=== PATIENT | female | born 1985 | race Caucasian/White ===

== ENCOUNTER 2020-07-01 14:53 | Inpatient (IN) ==
[2020-07-01] MEDS ORDERED: 0.9 % SODIUM CHLORIDE 1,000 ML IV ONE ×3 (15:44→19:09)
[2020-07-01] MEDS ORDERED: IPRATROPIUM/ALBUTEROL 3 ML AMPUL.NEB NEB ONE (15:45)
--- NOTE | 2020-07-01 15:56 | XRay Report ---
INDICATION: Cough. Paraplegia and history of aspiration pneumonia TECHNIQUE: AP portable upright chest x-ray COMPARISON: None FINDINGS: Lungs:Left basilar pulmonary parenchymal density. Pneumonia including covid pneumonia are possible. No parenchymal consolidation. Right lung is negative Heart, vascular:No significant cardiomegaly. Pulmonary vascularity is normal. No pulmonary edema or pulmonary congestion Mediastinum, calin:No mediastinal widening. No hilar mass Pleura:No pleural fluid. No pleural-based mass or calcification Skeletal:Negative. IMPRESSION: 1. Mild left basilar infiltrate. 2. Findings are consistent with pneumonia and covid pneumonia is possible Interpreted and Authenticated by: Caden Ingram 07/01/20
--- NOTE | 2020-07-01 15:59 | Emergency Department Note ---
HPI <Anna Diggs, STUDENT - Last Filed: 07/01/20 19:46> General Chief complaint: Cold/Flu Symptoms Stated complaint: congetion and cough Time Seen by Provider: 07/01/20 15:01 Source: patient Mode of arrival: wheelchair Limitations: no limitations and physical limitation (History of paraplegia, wheelchair dependent. ) History of Present Illness HPI Narrative: Narrative: 35-year-old female presents with shortness of breath, fever, chills, nausea, headache x 3 days and right ear pain x 1 day. She has been taking oxycodone for her headache and fever with some relief. She states the headache is the worst in between doses of Oxycodone. Describes it as a vice on her whole head. Denies vomiting, diarrhea, abdominal pain, sore throat, and sinus pain. Related Data Home Medications Medication Instructions Recorded Confirmed baclofen 20 mg PO QID 03/15/19 07/01/20 gabapentin 200 mg PO TID 03/15/19 07/01/20 levalbuterol HCl 0.63 mg IH QDAY 03/15/19 07/01/20 methocarbamol 750 mg PO Q6H 03/15/19 07/01/20 montelukast 10 mg PO DAILY 03/15/19 07/01/20 oxycodone 1 tab PO Q4HP PRN 03/15/19 07/01/20 venlafaxine 225 mg PO DAILY 03/15/19 07/01/20 fluticasone propion-salmeterol 1 inh INHALATION BID 07/01/20 07/01/20 [Wixela Inhub] Allergies Allergy/AdvReac Type Severity Reaction Status Date / Time No Known Drug Allergies Allergy Unverified 03/15/19 22:33 Review of Systems <Anna Diggs, STUDENT - Last Filed: 07/01/20 19:46> ROS ROS Narrative: Narrative: All systems ED: reviewed and negative except as stated. PFSH <Anna Diggs, STUDENT - Last Filed: 07/01/20 19:46> Narrative Patient History Narrative: Narrative: Reports PCP is concerned that the left side of her diaphragm is not working correctly, feels she has decreased chest rise on left. Medical/Surgical/Family History All Active Problems (Updated 07/01/20 @ 17:14 by KHAI Mir Pneumonia (Acute) Acute otitis media, right (Acute) Shortness of breath (Acute) Hangover with complication (Acute) Dehydration (Acute) Social History Smoking Status: Never smoker Exam <Anna Diggs, STUDENT - Last Filed: 07/01/20 19:46> Narrative Narrative: Narrative: General Limitations: no limitations and physical limitation (History of paraplegia, wheelchair dependent. ) General appearance: Present alert and anxious Head Head: Present atraumatic and normocephalic Eye Eye: Present PERRL (7-4 mm) ENT ENT: Present mucous membranes dry; Absent TM's normal bilaterally and nasal congestion Expanded ENT TM/Canal exam: erythema: Right TM, bulging: Right TM, effusion: Right TM and canal tenderness: Right TM Neck Neck: Present normal inspection and trachea midline; Absent tenderness and lymphadenopathy Chest Chest: Present symmetric chest wall rise Respiratory Respiratory: Present respiratory distress, rales/crackles, wheezes, accessory muscle use and other (speaks in short sentences due to respiraory distress. ) Cardiovascular Cardiovascular: Present regular rate and normal rhythm Adbominal Abdominal: Present soft and normal bowel sounds; Absent distention, tenderness and guarding Rectal Rectal: Present deferred Extremities Extremities: Present full ROM and other (able to move legs, keeps them bent up towards chest, states it hurts to lay them flat. 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 She has sensation to her right leg more than left. ) Psychiatric Psychiatric: Present anxious and poor eye contact Skin Skin: Present dry and pallor Course <Anna Diggs, STUDENT - Last Filed: 07/01/20 19:46> Vital Signs Vital signs: Vital Signs Temperature 97.6 F 07/01/20 14:54 Pulse Rate 79 07/01/20 14:54 Respiratory Rate 16 07/01/20 14:54 Blood Pressure 135/102 07/01/20 14:54 Pulse Oximetry (%) 96 07/01/20 14:54 Temperature 100.7 F H 07/01/20 20:00 Pulse Rate 139 H 07/01/20 20:00 Respiratory Rate 22 07/01/20 20:00 Blood Pressure 123/86 07/01/20 20:00 Pulse Oximetry (%) 99 07/01/20 20:00 <Joaquín JOSE EDUARDO Trujillo - Last Filed: 07/01/20 21:58> Vital Signs Vital signs: Vital Signs Temperature 97.6 F 07/01/20 14:54 Pulse Rate 79 07/01/20 14:54 Respiratory Rate 16 07/01/20 14:54 Blood Pressure 135/102 07/01/20 14:54 Pulse Oximetry (%) 96 07/01/20 14:54 Temperature 100.7 F H 07/01/20 20:00 Pulse Rate 139 H 07/01/20 20:00 Respiratory Rate 22 07/01/20 20:00 Blood Pressure 123/86 07/01/20 20:00 Pulse Oximetry (%) 99 07/01/20 20:00 MDM <Anna Dontae, YARI - Last Filed: 07/01/20 19:46> MDM Narrative Medical decision making narrative: Narrative: In moderate respiratory distress speaking in short sentences due to shortness of breath, RR 28-32, using accessory muscles. WBC elevated at 17K. Currently afebrile 97.6. CXR findings include Left basilar pulmonary parenchymal density. Pneumonia including covid pneumonia are possible. No parenchymal consolidation. Right lung is negative. Rapid influenza & Tabitha rapid COVID negative. Airborne/droplet isolation maintained due to multiple symptoms consistent with COVID. ALT 194, AST 65, Alk. phos 262. Note mild elevation 03/15/19 of AST and AL 70. Abdomen is non tender, likely related to viral infection. Lactate 1.3. Right otitis media with erythema and effusion on R TM. Repeat vital signs HR 130, Temp 100.9, BP 129/79, RR 18, SaO2 98%. Patient meets admission criteria. Dr. Nunez, hospitalist contacted. He has accepted the patient for admission. He requests Cephied COVID test, Decadron 6 mg IV, Blood cultures x 2, Zosyn 3.375 IV, Remdesivir 200 mg IV, he later canceled remdesivir. The patient continues to be tachycardic and tachypnic with frequent coughing. ABG's PH 7.56, PCO2 22, PO2 61, HcO3 19.7, O2 2L/NC ordered. Temp up to 102.2 treated with Tylenol. HR continues to be 130's. Lab Data Result diagrams: 07/01/20 15:18 07/01/20 15:18 Labs: Lab Results 07/01/20 07/01/20 07/01/20 Range/Units 15:18 15:18 15:18 WBC 17.0 H (4.5-11.0) K/mcL RBC 4.25 (4.00-5.20) M/mcL Hgb 13.2 (12.0-15.0) g/dL Hct 39.1 (36.0-48.0) % MCV 92.0 (80.0-100.0) fL MCH 31.1 (26.0-34.0) pg MCHC 33.8 (31.0-36.0) g/dL RDW 14.2 (11.5-14.5) % Plt Count 384 (140-440) K/mcL MPV 9.7 (7.4-10.4) fL Neut % (Auto) 82.6 H (38.0-78.0) % Lymph % (Auto) 9.6 L (15.0-49.0) % Upson % (Auto) 7.3 (1.0-12.0) % Eos % (Auto) 0.1 (0.0-7.0) % Baso % (Auto) 0.4 (0.0-2.0) % Lymph # (Auto) 1.63 (1.50-4.80) K/mcL Upson # (Auto) 1.23 H (0.10-0.90) K/mcL Eos # (Auto) 0.01 (0.00-0.70) K/mcL Baso # (Auto) 0.06 (0.00-0.20) K/mcL Absolute Neutrophils 14.03 H (1.80-8.00) K/mcL VBG Lactic Acid 1.3 (0.5-2.0) mmol/L Sodium 133 (133-145) mmol/L Potassium 4.1 (3.3-5.1) mmol/L Chloride 97 (96-108) mmol/L Carbon Dioxide 21 L (22-30) mmol/L Anion Gap 15.0 (8.0-16.0) BUN 7 (6-20) mg/dL Creatinine 0.8 (0.6-1.1) mg/dL GFR Calculation 97 Glucose 98 (70-105) mg/dL Calcium 9.5 (8.6-10.4) mg/dL Total Bilirubin 0.5 (0.1-1.0) mg/dL AST 65 H (<32) U/L ALT 194 H (<40) U/L Alkaline Phosphatase 262 H (39-117) U/L Total Protein 8.0 (5.9-8.4) gm/dL Albumin 4.5 (3.2-5.2) gm/dL Globulin 3.5 (2.2-3.7) gm/dL Albumin/Globulin Ratio 1.3 (1.0-2.3) <JOSE EDUARDO Mir - Last Filed: 07/01/20 21:58> MDM Narrative Medical decision making narrative: This patient was seen by myself, and also with the nurse practitioner student today. Patient hospitalized for pneumonia. Agree with the nurse practitioner student documentation. See my note for additional detail and assessment. Lab Data Labs: Lab Results 07/01/20 07/01/20 07/01/20 Range/Units 15:18 15:18 15:18 WBC 17.0 H (4.5-11.0) K/mcL RBC 4.25 (4.00-5.20) M/mcL Hgb 13.2 (12.0-15.0) g/dL Hct 39.1 (36.0-48.0) % MCV 92.0 (80.0-100.0) fL MCH 31.1 (26.0-34.0) pg MCHC 33.8 (31.0-36.0) g/dL RDW 14.2 (11.5-14.5) % Plt Count 384 (140-440) K/mcL MPV 9.7 (7.4-10.4) fL Neut % (Auto) 82.6 H (38.0-78.0) % Lymph % (Auto) 9.6 L (15.0-49.0) % Upson % (Auto) 7.3 (1.0-12.0) % Eos % (Auto) 0.1 (0.0-7.0) % Baso % (Auto) 0.4 (0.0-2.0) % Lymph # (Auto) 1.63 (1.50-4.80) K/mcL Upson # (Auto) 1.23 H (0.10-0.90) K/mcL Eos # (Auto) 0.01 (0.00-0.70) K/mcL Baso # (Auto) 0.06 (0.00-0.20) K/mcL Absolute Neutrophils 14.03 H (1.80-8.00) K/mcL VBG Lactic Acid 1.3 (0.5-2.0) mmol/L Sodium 133 (133-145) mmol/L Potassium 4.1 (3.3-5.1) mmol/L Chloride 97 (96-108) mmol/L Carbon Dioxide 21 L (22-30) mmol/L Anion Gap 15.0 (8.0-16.0) BUN 7 (6-20) mg/dL Creatinine 0.8 (0.6-1.1) mg/dL GFR Calculation 97 Glucose 98 (70-105) mg/dL Calcium 9.5 (8.6-10.4) mg/dL Total Bilirubin 0.5 (0.1-1.0) mg/dL AST 65 H (<32) U/L ALT 194 H (<40) U/L Alkaline Phosphatase 262 H (39-117) U/L Total Protein 8.0 (5.9-8.4) gm/dL Albumin 4.5 (3.2-5.2) gm/dL Globulin 3.5 (2.2-3.7) gm/dL Albumin/Globulin Ratio 1.3 (1.0-2.3) Discharge Plan Patient/Caregiver Discharge Instructions Pt seen by SWATCH CUTTER/PA only: No Clinical Impression: Acute otitis media, right Pneumonia Qualifiers: Pneumonia type: due to unspecified organism Laterality: left Lung location: lower lobe of lung Qualified Code(s): J18.9 - Pneumonia, unspecified organism Patient Disposition: Xfer As Inpt ([facility]) Condition: Fair Discharge Date/Time: 07/01/20 19:58
[2020-07-01] MEDS ORDERED: cefTRIAXone 1 GM VIAL IV ONE (16:03)
[2020-07-01 16:10] LABS: ALT/SGPT 194 U/L (<40); AST/SGOT 65 U/L (<32); Albumin 4.5 gm/dL (3.2-5.2); Albumin/Globulin Ratio 1.3 (1.0-2.3); Alkaline Phosphatase 262 U/L (39-117); Bilirubin,Total 0.5 mg/dL (0.1-1.0); Blood Urea Nitrogen 7 mg/dL (6-20); Calcium 9.5 mg/dL (8.6-10.4); Carbon Dioxide 21 mmol/L (22-30); Chloride 97 mmol/L (96-108); Globulin 3.5 gm/dL (2.2-3.7); Glomerular Filtration Rate 97; Glucose 98 mg/dL (70-105)
[2020-07-01 16:15] LABS: Basophils # (Auto) 0.06 K/mcL (0.00-0.20); Basophils % (Auto) 0.4 % (0.0-2.0); Eosinophils # (Auto) 0.01 K/mcL (0.00-0.70); Eosinophils % (Auto) 0.1 % (0.0-7.0); Hematocrit 39.1 % (36.0-48.0); Hemoglobin 13.2 g/dL (12.0-15.0); Lymphocytes # (Auto) 1.63 K/mcL (1.50-4.80); Lymphocytes % (Auto) 9.6 % (15.0-49.0); Mean Corpuscular HGB Conc 33.8 g/dL (31.0-36.0); Mean Platelet Volume 9.7 fL (7.4-10.4); Monocytes # (Auto) 1.23 K/mcL (0.10-0.90); Monocytes % (Auto) 7.3 % (1.0-12.0); Neutrophils % (Auto) 82.6 % (38.0-78.0); Platelet Count 384 K/mcL (140-440); RBC 4.25 M/mcL (4.00-5.20); Red Cell Distribution Width 14.2 % (11.5-14.5)
--- NOTE | 2020-07-01 16:58 | Emergency Department Note ---
HPI General Chief complaint: Cold/Flu Symptoms Stated complaint: congetion and cough Time Seen by Provider: 07/01/20 15:01 Source: patient Mode of arrival: wheelchair Limitations: physical limitation (Paraplegia and wheelchair dependent) History of Present Illness HPI Narrative: Narrative: Patient is a 35-year-old female that comes into the emergency department today with complaint of shortness of breath, fever, chills, nausea, and headache that started 3 days ago. Patient reports that she developed right ear pain 1 day ago. She has not had any ear drainage or changes with her hearing. Patient reports that her cough started about a week and a half ago after she had visited her [id number]. Patient denies any direct exposure to the novel coronavirus. Patient reports she was taking her temperature at home over the last few days and has had temperatures around 103. She does take scheduled pain medication, and she reports that the acetaminophen and the pain medication was keeping her temperature at normal level, but when she would check her temperature before her next dose of pain medication her temperature would rise up to around 103 degrees. Patient denies any nausea, vomiting, abdominal pains, sore throat, sinus congestion, or weakness. Patient does have a history of paraplegia. Related Data Home Medications Medication Instructions Recorded Confirmed baclofen 20 mg PO QID 03/15/19 07/01/20 gabapentin 200 mg PO TID 03/15/19 07/01/20 levalbuterol HCl 0.63 mg IH QDAY 03/15/19 07/01/20 methocarbamol 750 mg PO Q6H 03/15/19 07/01/20 montelukast 10 mg PO DAILY 03/15/19 07/01/20 oxycodone 1 tab PO Q4HP PRN 03/15/19 07/01/20 venlafaxine 225 mg PO DAILY 03/15/19 07/01/20 fluticasone propion-salmeterol 1 inh INHALATION BID 07/01/20 07/01/20 [Carolina Mendozaub] Allergies Allergy/AdvReac Type Severity Reaction Status Date / Time No Known Drug Allergies Allergy Unverified 03/15/19 22:33 Review of Systems ROS ROS Narrative: Narrative: All systems ED: reviewed and negative except as stated. PFSH Narrative Patient History Narrative: Narrative: Medical/Surgical/Family History All Active Problems (Updated 07/01/20 @ 17:14 by JOSE EDUARDO Mir) Pneumonia (Acute) Acute otitis media, right (Acute) Shortness of breath (Acute) Hangover with complication (Acute) Dehydration (Acute) Social History Smoking Status: Never smoker Exam Narrative Narrative: Narrative: General Limitations: physical limitation (Paraplegia and wheelchair dependent) General appearance: Present alert and in no apparent distress Head Head: Present atraumatic, normocephalic and normal inspection Eye Eye: Present normal appearance and PERRL; Absent scleral icterus and conjunc tival injection ENT ENT: Present normal exam, normal oropharynx, mucous membranes moist and other (Left ear canal clear and tympanic membrane opaque and all landmarks identified. The right tympanic membrane is erythematous with moderate bulging.); Absent nasal congestion Neck Neck: Present normal inspection, full ROM and trachea midline; Absent tenderness, lymphadenopathy and thyromegaly Chest Chest: Present symmetric chest wall rise Respiratory Respiratory: Present other (Tachypnea, crackles in all lobes.); Absent wheezes, stridor, accessory muscle use and prolonged expiratory phase Cardiovascular Cardiovascular: Present regular rate and normal rhythm; Absent systolic murmur and diastolic murmur Adbominal Abdominal: Present soft; Absent distention and tenderness Extremities Extremities: Present normal inspection and normal capillary refill; Absent pedal edema and pretibial edema Back Back: Present normal inspection; Absent CVA tenderness (R) and CVA tenderness (L) Neurological Neurological: Present alert and oriented X3 Psychiatric Psychiatric: Present normal affect and normal mood Skin Skin: Present warm (WNL), dry, intact and normal color Course Vital Signs Vital signs: Vital Signs Temperature 97.6 F 07/01/20 14:54 Pulse Rate 79 07/01/20 14:54 Respiratory Rate 16 07/01/20 14:54 Blood Pressure 135/102 07/01/20 14:54 Pulse Oximetry (%) 96 07/01/20 14:54 Temperature 100.9 F H 07/01/20 16:49 Pulse Rate 130 H 07/01/20 16:49 Respiratory Rate 18 07/01/20 16:49 Blood Pressure 129/79 07/01/20 16:49 Pulse Oximetry (%) 98 07/01/20 16:49 MDM MDM Narrative Medical decision making narrative: Narrative: Patient has elevated white count today at 17. Patient's blood pressure 129/79, pulse 130, respirations 18, temperature 100.9, oxygen saturation 98% on room air. Patient was given 1 g of Rocephin in the department, 1 L normal saline, and was awaiting labs to return. Ordered acetaminophen to be given. Chest x- ray shows left lower lobe pneumonia with concern of possible Covid pneumonia. Her rapid Covid testing today is negative. Hospitalist, Dr. Ramesh was consulted this evening. Report was given to Dr. Ramesh by nurse practitioner student, Anna Diggs. Dr. Ramesh agreed to accept the patient for hospital admission. Dr. Ramesh recommended patient to have the Cephid COVID testing done as well as remdesivir, Zosyn, 6 mg of Decadron, blood cultures drawn x2. These medications and labs were ordered in the emergency department to be done. Dr. Ramesh had called back to the emergency department, and did not want the remdesivir given due to the elevated ALT level. The remdesivir was not given today in the emergency department. Lab Data Lab results reviewed: Yes I reviewed the patient's lab results. Result diagrams: 07/01/20 15:18 07/01/20 15:18 Labs: Lab Results 07/01/20 07/01/20 07/01/20 Range/Units 15:18 15:18 15:18 WBC 17.0 H (4.5-11.0) K/mcL RBC 4.25 (4.00-5.20) M/mcL Hgb 13.2 (12.0-15.0) g/dL Hct 39.1 (36.0-48.0) % MCV 92.0 (80.0-100.0) fL MCH 31.1 (26.0-34.0) pg MCHC 33.8 (31.0-36.0) g/dL RDW 14.2 (11.5-14.5) % Plt Count 384 (140-440) K/mcL MPV 9.7 (7.4-10.4) fL Neut % (Auto) 82.6 H (38.0-78.0) % Lymph % (Auto) 9.6 L (15.0-49.0) % Warrick % (Auto) 7.3 (1.0-12.0) % Eos % (Auto) 0.1 (0.0-7.0) % Baso % (Auto) 0.4 (0.0-2.0) % Lymph # (Auto) 1.63 (1.50-4.80) K/mcL [place]rick # (Auto) 1.23 H (0.10-0.90) K/mcL Eos # (Auto) 0.01 (0.00-0.70) K/mcL Baso # (Auto) 0.06 (0.00-0.20) K/mcL Absolute Neutrophils 14.03 H (1.80-8.00) K/mcL VBG Lactic Acid 1.3 (0.5-2.0) mmol/L Sodium 133 (133-145) mmol/L Potassium 4.1 (3.3-5.1) mmol/L Chloride 97 (96-108) mmol/L Carbon Dioxide 21 L (22-30) mmol/L Anion Gap 15.0 (8.0-16.0) BUN 7 (6-20) mg/dL Creatinine 0.8 (0.6-1.1) mg/dL GFR Calculation 97 Glucose 98 (70-105) mg/dL Calcium 9.5 (8.6-10.4) mg/dL Total Bilirubin 0.5 (0.1-1.0) mg/dL AST 65 H (<32) U/L ALT 194 H (<40) U/L Alkaline Phosphatase 262 H (39-117) U/L Total Protein 8.0 (5.9-8.4) gm/dL Albumin 4.5 (3.2-5.2) gm/dL Globulin 3.5 (2.2-3.7) gm/dL Albumin/Globulin Ratio 1.3 (1.0-2.3) Discharge Plan Patient/Caregiver Discharge Instructions Pt seen by CIVIL ENGINEERING PROJECT DESIGNER/PA only: No Clinical Impression: Acute otitis media, right Pneumonia Qualifiers: Pneumonia type: due to unspecified organism Laterality: left Lung location: lower lobe of lung Qualified Code(s): J18.9 - Pneumonia, unspecified organism Patient Disposition: Xfer As Inpt ([facility]) Condition: Fair
[2020-07-01] MEDS ORDERED: REMDESIVIR 200 MG in 0.9 % SODIUM CHLORIDE 250 ML IV ONE (17:06)
[2020-07-01] MEDS ORDERED: PIPERACILLIN SODIUM/TAZOBACTAM 3.375 GM in DEXTROSE 5% IN WATER 50 ML IV ONE (17:06)
[2020-07-01] MEDS ORDERED: DEXAMETHASONE 10 MG/ML VIAL IV ONE (17:06)
[2020-07-01] MEDS ORDERED: ONDANSETRON 4 MG/2 ML VIAL IV PRN ×2 (17:14→19:09)
[2020-07-01] MEDS ORDERED: 0.9 % SODIUM CHLORIDE 1,000 ML IV SCH ×2 (17:15→19:09)
[2020-07-01] MEDS ORDERED: ACETAMINOPHEN 325 MG TABLET PO ONE ×2 (17:23→19:09)
--- NOTE | 2020-07-01 18:43 | Internal Med History&Physical ---
HPI History of Present Illness Patient information: Note initiated : 07/01/20 at 6:40 pm Service Date, if different from initiated Date: [] Patient: iKya Smith a 35 y/o F admitted on for congetion and cough. Chief Complaint: [] History of present illness: Ms. Smith is a 35 year old F With a history of prior sinus surgery/paraplegia and wheelchair dependent who presents to the ER with 3 days onset of worsening weakness/myalgias/cough/fever headache and loss of appetite. Symptoms are progressed with increasing shortness of breath along with right ear pain. She is endorses to sick contact with URI symptoms. With progressive symptoms she presents to the ER with initial work-up was consistent with bilateral pneumonia suspicious for Covid. White count 70,000. Patient was started on antibiotic coverage/bronchodilators and breathing treatments. Elevated ALT precludes use of remdesivir. Hospital service was consulted. At the time of evaluation patient is very anxious/frequent spells of coughing. She endorses history as above. Denies diarrhea, dysuria, abdominal pain. Her symptoms has been relieved with Tylenol. She has known paraplegia and is wheelchair dependent and has been taking baclofen/oxycodone without help Review of systems 10 point review system was performed and is negative except for ones discussed above PFSH PFSH All Active Problems (Updated 07/01/20 @ 17:14 by JOSE EDUARDO Mir) Pneumonia (Acute) Acute otitis media, right (Acute) Shortness of breath (Acute) Hangover with complication (Acute) Dehydration (Acute) Social History smoking status: Never smoker MEDS/ALLERGIES Home Medications and Allergies Home Medications Medication Instructions Recorded Confirmed Type baclofen 20 mg PO QID 03/15/19 07/01/20 History gabapentin 200 mg PO TID 03/15/19 07/01/20 History levalbuterol HCl 0.63 mg IH QDAY 03/15/19 07/01/20 History methocarbamol 750 mg PO Q6H 03/15/19 07/01/20 History montelukast 10 mg PO DAILY 03/15/19 07/01/20 History oxycodone 1 tab PO Q4HP PRN 03/15/19 07/01/20 History venlafaxine 225 mg PO DAILY 03/15/19 07/01/20 History fluticasone propion-salmeterol 1 inh INHALATION BID 07/01/20 07/01/20 History [Wixela Inhub] Allergies Allergy/AdvReac Type Severity Reaction Status Date / Time No Known Drug Allergies Allergy Unverified 03/15/19 22:33 EXAM Constitutional Vitals: Temp Pulse Resp BP Pulse Ox 100.9 F H 130 H 18 129/79 98 07/01/20 16:49 07/01/20 16:49 07/01/20 16:49 07/01/20 16:49 07/01/20 16:49 Anxious and distressed Head normocephalic Oral cavity moist No ear nose discharge, no meatal tenderness Eye movement symmetrical Neck supple no lymphadenopathy S1-S2 tachycardia 130s Rapid shallow labored breathing Nondistended nontender abdomen Lower extremity no cyanosis clubbing or joint swelling Skin no suspicious lesion Psych extremely anxious but no hallucinations Neuro normal higher function DATA Data Completed and Pending Labs: Labs from last 24 hours 07/01/20 07/01/20 07/01/20 15:18 15:18 15:18 WBC 17.0 H RBC 4.25 Hgb 13.2 Hct 39.1 MCV 92.0 MCH 31.1 MCHC 33.8 RDW 14.2 Plt Count 384 MPV 9.7 Neut % (Auto) 82.6 H Lymph % (Auto) 9.6 L Mercer % (Auto) 7.3 Eos % (Auto) 0.1 Baso % (Auto) 0.4 Lymph # (Auto) 1.63 [place]cer # (Auto) 1.23 H Eos # (Auto) 0.01 Baso # (Auto) 0.06 Absolute Neutrophils 14.03 H VBG Lactic Acid 1.3 Sodium 133 Potassium 4.1 Chloride 97 Carbon Dioxide 21 L Anion Gap 15.0 BUN 7 Creatinine 0.8 GFR Calculation 97 Glucose 98 Calcium 9.5 Total Bilirubin 0.5 AST 65 H ALT 194 H Alkaline Phosphatase 262 H Total Protein 8.0 Albumin 4.5 Globulin 3.5 Albumin/Globulin Ratio 1.3 Preliminary micro results at discharge 07/01/20 15:59 Gram Stain - Preliminary Sputum - Expectorated A/P Narrative A/P Narrative: * COVID-19 pneumonia - Continue steroids/empiric antibiotics. Elevated ALT precludes use of remdesivir. Check ferritin/inflammatory markers. However elevated white count concerning for superadded bacterial infection. Start empiric antibiotic coverage * Sepsis secondary super infection. Antibiotic coverage. White count 17,000. Febrile with tachycardia tachypnea. Continue management per guidelines. Await cultures * history of chronic pain on oxycodone/methocarbamol/baclofen * acute otitis media-likely viral infection mediated. * History of chronic pain on methocarbamol/gabapentin/baclofen/oxycodone * Anxiety disorder on venlafaxine * Full code flexes heparin * Plan * Inpatient admission * Broad antibiotic coverage * Sepsis management guidelines * Chronic pain management * Serum ferritin /D-dimer/steroids and contact precautions Time Spent With Patient Time: Total time spent is greater than 50% in coordination of care (as documented) at patient's floor/unit and/or counseling patient:
[2020-07-01] MEDS ORDERED: AZITHROMYCIN 500 MG in DEXTROSE 5% IN WATER 250 ML IV SCH (19:09)
[2020-07-01] MEDS ORDERED: POLYETHYLENE GLYCOL 3350 17 GM PACKET PO PRN (19:09)
[2020-07-01] MEDS ORDERED: ONDANSETRON 4 MG ODT TABLET SL PRN (19:09)
[2020-07-01] MEDS ORDERED: PIPERACILLIN SODIUM/TAZOBACTAM 3.375 GM in DEXTROSE 5% IN WATER 50 ML IV SCH (19:09)
[2020-07-01] MEDS ORDERED: POTASSIUM CHLORIDE 20 MEQ PACKET PO PRN (19:09)
[2020-07-01] MEDS ORDERED: ACETAMINOPHEN 650 MG/65 ML BAG IV PRN (19:09)
[2020-07-01] MEDS ORDERED: POTASSIUM CHLORIDE 40 MEQ in DEXTROSE 5% IN WATER 500 ML IV PRN (19:09)
[2020-07-01] MEDS ORDERED: MELATONIN 3 MG TABLET PO PRN (19:09)
[2020-07-01] MEDS ORDERED: BISACODYL 10 MG SUPP.RECT PR PRN (19:09)
[2020-07-01] MEDS ORDERED: MAGNESIUM SULFATE 2 GM/50 ML BAG IV PRN (19:09)
[2020-07-01] MEDS ORDERED: OXYCODONE PO PRN (19:09)
[2020-07-01] MEDS ORDERED: METHOCARBAMOL 750 MG TABLET PO SCH (19:09)
[2020-07-01] MEDS: ACETAMINOPHEN 325 MG TABLET PO PRN (19:49)
[2020-07-01] MEDS ORDERED: oxyCODONE HCL 5 MG TABLET PO PRN (20:00)
[2020-07-01] MEDS: ONDANSETRON 4 MG/2 ML VIAL IV PRN (20:40)
[2020-07-01] MEDS: AZITHROMYCIN 500 MG in DEXTROSE 5% IN WATER 250 ML IV SCH ×2 (20:55→21:07)
[2020-07-01] MEDS ORDERED: DOCUSATE SODIUM 100 MG CAPSULE PO SCH ×2 (21:00)
[2020-07-01] MEDS ORDERED: SENNOSIDES 1 TABLET PO SCH ×2 (21:00)
[2020-07-01] MEDS: GABAPENTIN 100 MG CAPSULE PO SCH (21:05)
[2020-07-01] MEDS: 0.9 % SODIUM CHLORIDE 1,000 ML IV SCH (21:05)
[2020-07-01] MEDS: DOCUSATE SODIUM 100 MG CAPSULE PO SCH (21:05)
[2020-07-01] MEDS: HEPARIN 5,000 UNIT/ML VIAL SQ SCH (21:05)
[2020-07-01] MEDS: SENNOSIDES/DOCUSATE SODIUM 1 TAB TABLET PO SCH (21:06)
[2020-07-01] MEDS: BACLOFEN 10 MG TABLET PO SCH (21:06)
[2020-07-01] MEDS: 0.9 % SODIUM CHLORIDE 10 ML SYRINGE IV SCH ×2 (21:09)
[2020-07-01] MEDS: BUDESONIDE 1 PUFF INHALER INH SCH (21:18)
[2020-07-01] MEDS: FLUTICASONE/SALMETEROL 250/50 INHALER #14 INH SCH (21:19)
[2020-07-01] MEDS ORDERED: 0.9 % SODIUM CHLORIDE 10 ML SYRINGE IV SCH (22:00)
[2020-07-02] MEDS: PIPERACILLIN SODIUM/TAZOBACTAM 3.375 GM in DEXTROSE 5% IN WATER 50 ML IV SCH ×4 (00:56→17:49)
[2020-07-02] MEDS: oxyCODONE HCL 5 MG TABLET PO PRN ×2 (01:00→16:23)
[2020-07-02 02:24] LABS: Appearance,Urine CLEAR (Clear); Bilirubin,Urine Negative (Negative); Color,Urine STRAW; Culture Indicated,Urine No; Glucose,Urine (UA) Negative (Negative); Ketones,Urine Negative (Negative); Leukocyte Esterase,Urine Negative /ug (Negative); Nitrate,Urine Negative (Negative); Protein,Urine Negative (Negative); Specific Gravity,Urine 1.006 (1.000-1.035); Urine Blood Negative (Negative); Urine RBC 0 /hpf (0-3); Urine Squamous Epithelial Cell 1 /hpf (0-4); Urine WBC < 1 /hpf (0-4); Urobilinogen,Urine Negative
[2020-07-02] MEDS: METHOCARBAMOL 750 MG TABLET PO PRN ×3 (03:01→16:33)
[2020-07-02] MEDS: ONDANSETRON 4 MG/2 ML VIAL IV PRN ×2 (05:02→10:42)
[2020-07-02] MEDS: 0.9 % SODIUM CHLORIDE 10 ML SYRINGE IV SCH ×5 (06:27→20:40)
[2020-07-02 06:57] LABS: ALT/SGPT 124 U/L (<40); AST/SGOT 27 U/L (<32); Albumin 3.9 gm/dL (3.2-5.2); Albumin/Globulin Ratio 1.1 (1.0-2.3); Alkaline Phosphatase 198 U/L (39-117); Bilirubin,Direct < 0.2 mg/dL (<0.3); Bilirubin,Total 0.3 mg/dL (0.1-1.0); Blood Urea Nitrogen 9 mg/dL (6-20); Calcium 8.6 mg/dL (8.6-10.4); Carbon Dioxide 20 mmol/L (22-30); Chloride 106 mmol/L (96-108); Globulin 3.4 gm/dL (2.2-3.7); Glomerular Filtration Rate 114; Glucose 126 mg/dL (70-105); Lactate Dehydrogenase 199 U/L (135-225); Phosphorous 1.8 mg/dL (2.5-4.5); Triglycerides 52 mg/dL (<150); Uric Acid 2.5 mg/dL (2.5-8.0)
[2020-07-02 07:00] LABS: Ferritin 114.4 ng/mL (13.0-150.0)
[2020-07-02 08:03] LABS: Basophils # (Auto) 0.02 K/mcL (0.00-0.20); Basophils % (Auto) 0.1 % (0.0-2.0); Eosinophils # (Auto) 0 K/mcL (0.00-0.70); Eosinophils % (Auto) 0 % (0.0-7.0); Hematocrit 35.1 % (36.0-48.0); Hemoglobin 11.5 g/dL (12.0-15.0); Lymphocytes # (Auto) 0.89 K/mcL (1.50-4.80); Lymphocytes % (Auto) 5.3 % (15.0-49.0); Mean Cell Volume 98.9 fL (80.0-100.0); Mean Corpuscular HGB Conc 32.8 g/dL (31.0-36.0); Mean Platelet Volume 9.8 fL (7.4-10.4); Monocytes # (Auto) 0.79 K/mcL (0.10-0.90); Monocytes % (Auto) 4.7 % (1.0-12.0); Neutrophils % (Auto) 89.9 % (38.0-78.0); Platelet Count 335 K/mcL (140-440); RBC 3.55 M/mcL (4.00-5.20); Red Cell Distribution Width 14.2 % (11.5-14.5); WBC 16.7 K/mcL (4.5-11.0)
[2020-07-02] MEDS: LEVALBUTEROL 0.63 MG/3 ML AMPUL.NEB INH SCH (09:15)
[2020-07-02] MEDS: FLUTICASONE/SALMETEROL 250/50 INHALER #14 INH SCH ×2 (09:20→20:41)
[2020-07-02] MEDS: BUDESONIDE 1 PUFF INHALER INH SCH (09:31)
[2020-07-02] MEDS ORDERED: NEUTRA PHOS 1 PACKET PO PRN (09:35)
[2020-07-02] MEDS: BACLOFEN 10 MG TABLET PO SCH ×4 (10:19→20:40)
[2020-07-02] MEDS: GABAPENTIN 100 MG CAPSULE PO SCH ×3 (10:20→20:40)
[2020-07-02] MEDS: VENLAFAXINE 75 MG CAP.XL.24H PO SCH (10:21)
[2020-07-02] MEDS: DOCUSATE SODIUM 100 MG CAPSULE PO SCH ×2 (10:22→20:40)
[2020-07-02] MEDS: MULTIVIT,THER IRON,CA,FA & MIN 1 TABLET PO SCH (10:22)
[2020-07-02] MEDS: MONTELUKAST 10 MG TABLET PO SCH (10:22)
[2020-07-02] MEDS: HEPARIN 5,000 UNIT/ML VIAL SQ SCH ×2 (10:24→20:40)
--- NOTE | 2020-07-02 11:13 | Internal Med Progress Note ---
SUBJECTIVE Subjective Patient information: Note initiated : 07/02/20 at 11:07 am Service Date, if different from initiated Date: [] Patient: Kiya Smith a 35 y/o F admitted on 07/01/20 for congetion and cough. History of present illness: Ms. Smith is a 35 year old F With a history of prior sinus surgery/paraplegia and wheelchair dependent who presents to the ER with 3 days onset of worsening weakness/myalgias/cough/fever headache and loss of appetite. Symptoms are progressed with increasing shortness of breath along with right ear pain. She is endorses to sick contact with URI symptoms. With progressive symptoms she presents to the ER with initial work-up was consistent with bilateral pneumonia suspicious for Covid. White count 70,000. Patient was started on antibiotic coverage/bronchodilators and breathing treatments. Elevated ALT precludes use of remdesivir. Hospital service was consulted. At the time of evaluation patient is very anxious/frequent spells of coughing. She endorses history as above. Denies diarrhea, dysuria, abdominal pain. Her symptoms has been relieved with Tylenol. She has known paraplegia and is wheelchair dependent and has been taking baclofen/oxycodone without help 2/-patient doing well. No overnight events. No concerns per staff. No fever chills nausea vomiting. White count downtrending. No overnight fever chills. Persistent cough and shortness of breath. Currently on room air. Tachycardia improved. ABG improving Constitutional Vitals: Vital Signs Temp Pulse Resp BP Pulse Ox 96 F L 91 H 20 113/67 98 07/02/20 06:42 07/02/20 09:32 07/02/20 09:32 07/02/20 06:42 07/02/20 06:42 Period Temp Pulse Resp BP Sys/Pena Pulse Ox Last 24 Hr 96 F-102.2 F 79-139 16-28 111-136/66-102 95-100 Intake and Output 07/01/20 07/02/20 07/02/20 21:59 05:59 13:59 Intake Total 1050 355 50 Output Total 400 300 Balance 1050 -45 -250 Weight 73.754 kg alert oriented Nonlabored breathing Tachypneic Anxious Intake & Output: Intake & Output 07/01/20 07/02/20 07/02/20 21:59 05:59 13:59 Intake Total 1050 355 50 Output Total 400 300 Balance 1050 -45 -250 Weight 73.754 kg Intake: IV 1050 115 50 Sodium Chloride 0.9% 1,000 ml @ 1000 Wide Open IV [facility] Rx#: [id number] Zosyn 3.375 gm In Dextrose 5% 50 50 50 in Water 50 ml @ 100 mls/hr IV Q6H [facility] Rx#:[id number] Oral 240 Output: Void Amount 400 300 Other: Urine Appearance Cloudy Clear Sediment Urine Color Bright Yellow Dark Yellow Urine Odor Normal OBJ DATA Labs CBC & Chem 7: 07/02/20 07:15 07/02/20 06:02 Labs: Abnormal Lab Results 07/02/20 07/02/20 07/02/20 07:15 06:02 06:02 WBC 16.7 H RBC 3.55 L Hgb 11.5 L Hct 35.1 L Neut % (Auto) 89.9 H Lymph % (Auto) 5.3 L Lymph # (Auto) 0.89 L [place] # (Auto) Absolute Neutrophils 14.96 H D-Dimer 0.85 H Carbon Dioxide 20 L Glucose 126 H Phosphorus 1.8 L GGT 195 H AST ALT 124 H Alkaline Phosphatase 198 H 07/01/20 07/01/20 15:18 15:18 WBC 17.0 H RBC Hgb Hct Neut % (Auto) 82.6 H Lymph % (Auto) 9.6 L Lymph # (Auto) [place] # (Auto) 1.23 H Absolute Neutrophils 14.03 H D-Dimer Carbon Dioxide 21 L Glucose Phosphorus GGT AST 65 H ALT 194 H Alkaline Phosphatase 262 H Meds: Medications Acetaminophen (Tylenol) 650 mg PO Q4-6HP PRN; Protocol PRN Reason: Per Pain Protocol/Fever > 101 Last Admin: 07/01/20 19:49 Dose: 650 mg Documented by: Baclofen (Lioresal) 20 mg PO QID [facility] Last Admin: 07/02/20 10:19 Dose: 20 mg Documented by: Bisacodyl (Dulcolax) 10 mg [place] Q2-3DAYS PRN PRN Reason: Constipation Dexamethasone (Decadron) 6 mg PO DAILY [facility] Docusate Sodium (Colace) 100 mg PO BID [facility] Last Admin: 07/02/20 10:22 Dose: 100 mg Documented by: Gabapentin (Neurontin) 200 mg PO TID [facility] Last Admin: 07/02/20 10:20 Dose: 200 mg Documented by: Heparin Sodium (Porcine) (Heparin) 5,000 unit SQ Q12 [facility] Last Admin: 07/02/20 10:24 Dose: 5,000 unit Documented by: Potassium Chloride 40 meq/ (Dextrose) 520 mls @ 130 mls/hr IV UD PRN PRN Reason: K+ = or < 3.5 Acetaminophen (Ofirmev) 650 mg in 65 mls @ 130 mls/hr IV Q6HP PRN; Protocol PRN Reason: Per Pain Protocol/Fever > 101 Last Infusion: 07/02/20 05:45 Dose: Infused Documented by: Magnesium Sulfate (Magnesium Sulfate) 2 gm in 50 mls @ 50 mls/hr IV UD PRN PRN Reason: MG = or < 1.7 Sodium Chloride (Sodium Chloride 0.9%) 1,000 mls @ 50 mls/hr IV .Q20H [facility] Stop: 07/04/20 07:08 Last Admin: 07/01/20 21:05 Dose: 50 mls/hr Documented by: Azithromycin 500 mg/ Dextrose 250 mls @ 250 mls/hr IV DAILY [facility]; Protocol Stop: 07/03/20 09:59 Last Admin: 07/01/20 20:55 Dose: 250 mls/hr Documented by: Piperacillin Sod/Tazobactam (Sod 3.375 gm/ Dextrose) 50 mls @ 100 mls/hr IV Q6H [facility]; Protocol Last Infusion: 07/02/20 06:55 Dose: Infused Documented by: Iron Carb/Multivit/[place]/Folic Acid (Multivitamin W/Minerals) 1 tab PO DAILY [facility] Last Admin: 07/02/20 10:22 Dose: 1 tab Documented by: Levalbuterol HCl (Xopenex) 0.63 mg INH QDAY [facility] Last Admin: 07/02/20 09:15 Dose: 0.63 mg Documented by: Melatonin (Melatonin 3mg Tablet) 3 mg PO HSP PRN PRN Reason: Insomnia Methocarbamol (Robaxin) 750 mg PO Q6HP PRN PRN Reason: Muscle Spasm Last Admin: 07/02/20 10:43 Dose: 750 mg Documented by: Montelukast Sodium (Singular) 10 mg PO DAILY [facility] Last Admin: 07/02/20 10:22 Dose: 10 mg Documented by: Ondansetron HCl (Zofran) 4 mg IV Q6HP PRN PRN Reason: Nausea And Vomiting Last Admin: 07/02/20 10:42 Dose: 4 mg Documented by: Ondansetron HCl (Zofran Odt) 4 mg SL Q4-6HP PRN; Protocol PRN Reason: Nausea And Vomiting Oxycodone HCl (Roxicodone) 10 mg PO Q8HP PRN PRN Reason: Pain Last Admin: 07/02/20 01:00 Dose: 10 mg Documented by: Polyethylene Glycol (Miralax) 17 gm PO DAILYP PRN PRN Reason: Constipation Potassium Chloride (Klor-Con) 40 meq PO DAILYP PRN PRN Reason: K+ < 3.5 Potassium/Phosphorus/Sodium (Neutra Phos) 2 packet PO DAILY PRN PRN Reason: PHOS <2.5 Fluticasone/Salmeterol (Advair 250-50 Diskus) 1 puff INH BID [facility] Last Admin: 07/02/20 09:20 Dose: 1 puff Documented by: Senna/Docusate Sodium (Senna Plus Tablet) 1 tab PO HS [facility] Last Admin: 07/01/20 21:06 Dose: 1 tab Documented by: Sodium Chloride (Saline Flush) 10 ml IV Q8 [facility] Last Admin: 07/02/20 06:27 Dose: Not Given Documented by: Sodium Chloride (Saline Flush) 10 ml IV Q8 [facility] Last Admin: 07/02/20 06:27 Dose: Not Given Documented by: Venlafaxine HCl (Effexor Xr) 225 mg PO DAILY [facility] Last Admin: 07/02/20 10:21 Dose: 225 mg Documented by: A/P Narrative A/P Narrative: * Left lower lobe pneumonia - Continue steroids/empiric antibiotics. Covid test negative. Normal inflammatory markers. Elevated white count responding to antibiotic coverage. Much improved this morning. * Sepsis with endorgan dysfunction secondary to pneumonia. Clinically improving on antibiotic coverage. White count downtrending. Endorgan dysfunction improving. Continue management per guidelines. * history of chronic pain on oxycodone/methocarbamol/baclofen * acute otitis media-clinically improving on antibiotic coverage * History of chronic pain on methocarbamol/gabapentin/baclofen/oxycodone * Anxiety disorder on venlafaxine * Prophylaxis Heparin Plan * Continue antibiotic coverage * Discontinue COVID-19 precautions * Sepsis management per guidelines * Steroids and bronchodilators * Chronic pain management Time Spent With Patient Time: Total time spent is greater than 50% in coordination of care (as documented) at patient's floor/unit and/or counseling patient:
[2020-07-02] MEDS: AZITHROMYCIN 500 MG in DEXTROSE 5% IN WATER 250 ML IV SCH (13:40)
[2020-07-02] MEDS: 0.9 % SODIUM CHLORIDE 1,000 ML IV SCH ×2 (16:59→22:46)
[2020-07-02] MEDS: SENNOSIDES/DOCUSATE SODIUM 1 TAB TABLET PO SCH (20:40)
[2020-07-03] MEDS: PIPERACILLIN SODIUM/TAZOBACTAM 3.375 GM in DEXTROSE 5% IN WATER 50 ML IV SCH ×5 (00:05→23:35)
[2020-07-03] MEDS: METHOCARBAMOL 750 MG TABLET PO PRN ×3 (00:17→20:05)
[2020-07-03] MEDS: oxyCODONE HCL 5 MG TABLET PO PRN ×3 (00:17→20:05)
[2020-07-03] MEDS: ACETAMINOPHEN 325 MG TABLET PO PRN (01:49)
[2020-07-03] MEDS ORDERED: LORazepam 2 MG/ML VIAL IV ONE ×2 (03:01→03:18)
[2020-07-03] MEDS ORDERED: LORazepam 2 MG/ML VIAL ONE ×3 (03:01→11:08)
[2020-07-03] MEDS ORDERED: METHOCARBAMOL 1,000 MG/10 ML VIAL IV ONE (03:07)
[2020-07-03] MEDS ORDERED: METHOCARBAMOL 1,000 MG/10 ML VIAL ONE (03:07)
[2020-07-03] MEDS: ONDANSETRON 4 MG/2 ML VIAL IV PRN (03:11)
[2020-07-03] MEDS ORDERED: MAGNESIUM SULFATE 8.12 MEQ/2 ML VIAL IV STA (03:20)
[2020-07-03] MEDS ORDERED: MAGNESIUM SULFATE 2 GM/50 ML BAG IV ONE ×2 (03:20→03:52)
[2020-07-03] MEDS ORDERED: CALCIUM GLUCONATE 4.65 MEQ/10 ML VIAL IV ONE (03:21)
[2020-07-03] MEDS ORDERED: CALCIUM GLUCONATE 4.65 MEQ/10 ML VIAL ONE ×2 (03:32→04:19)
[2020-07-03] MEDS ORDERED: MAGNESIUM SULFATE 8.12 MEQ/2 ML VIAL ONE (03:32)
[2020-07-03] MEDS ORDERED: morphine 4 MG/ML VIAL IV ONE (03:35)
[2020-07-03] MEDS ORDERED: morphine 4 MG/ML VIAL ONE (03:36)
[2020-07-03] MEDS ORDERED: DANTROLENE SODIUM 20 MG VIAL IV ONE ×3 (03:40→03:47)
[2020-07-03 03:42] LABS: POC Calcium, Ionized 1.08 mmEq/L (1.16-1.32); POC Creatinine 0.8 mg/dL (0.6-1.2); POC Potassium 3.8 mEql/L (3.3-5.1)
[2020-07-03] MEDS: 0.9 % SODIUM CHLORIDE 10 ML SYRINGE IV SCH ×3 (05:24→23:12)
[2020-07-03 05:50] LABS: Basophils # (Auto) 0.06 K/mcL (0.00-0.20); Basophils % (Auto) 0.4 % (0.0-2.0); Eosinophils # (Auto) 0.03 K/mcL (0.00-0.70); Eosinophils % (Auto) 0.2 % (0.0-7.0); Hematocrit 33.7 % (36.0-48.0); Hemoglobin 11.7 g/dL (12.0-15.0); Lymphocytes # (Auto) 3.67 K/mcL (1.50-4.80); Lymphocytes % (Auto) 22.6 % (15.0-49.0); Mean Cell Volume 95.7 fL (80.0-100.0); Mean Corpuscular HGB Conc 34.7 g/dL (31.0-36.0); Mean Platelet Volume 10.3 fL (7.4-10.4); Monocytes # (Auto) 1.37 K/mcL (0.10-0.90); Monocytes % (Auto) 8.4 % (1.0-12.0); Neutrophils % (Auto) 68.4 % (38.0-78.0); Platelet Count 480 K/mcL (140-440); RBC 3.52 M/mcL (4.00-5.20); Red Cell Distribution Width 14.5 % (11.5-14.5); WBC 16.2 K/mcL (4.5-11.0)
[2020-07-03 06:18] LABS: ALT/SGPT 97 U/L (<40); AST/SGOT 26 U/L (<32); Albumin/Globulin Ratio 1.1 (1.0-2.3); Alkaline Phosphatase 169 U/L (39-117); Bilirubin,Direct < 0.2 mg/dL (<0.3); Bilirubin,Total 0.3 mg/dL (0.1-1.0); Blood Urea Nitrogen 11 mg/dL (6-20); Calcium 8.8 mg/dL (8.6-10.4); Carbon Dioxide 16 mmol/L (22-30); Chloride 108 mmol/L (96-108); Globulin 3.6 gm/dL (2.2-3.7); Glomerular Filtration Rate 84; Glucose 90 mg/dL (70-105); Lactate Dehydrogenase 178 U/L (135-225); Phosphorous 4.8 mg/dL (2.5-4.5); Triglycerides 118 mg/dL (<150); Uric Acid 3.8 mg/dL (2.5-8.0)
--- NOTE | 2020-07-03 06:35 | XRay Report ---
INDICATION: Interval Change TECHNIQUE: AP portable upright chest x-ray COMPARISON: Previous chest x-ray dated 07/01/2020 FINDINGS: Lungs:Mild parenchymal density at the left lung base. This appears improved. Findings may be secondary to volume loss or pneumonia. No new parenchymal infiltrates. No consolidation. Heart, vascular:No significant cardiomegaly. Pulmonary vascularity is normal. No pulmonary edema or pulmonary congestion Mediastinum, calin:No mediastinal widening. No hilar mass Pleura:No pleural fluid. No pleural-based mass or calcification Skeletal:Negative. IMPRESSION: 1. Mild left basilar infiltrate consistent with pneumonia or volume loss 2. Interval improvement since 07/01/2020 Interpreted and Authenticated by: Caden Ingram 07/03/20
[2020-07-03] MEDS: GABAPENTIN 100 MG CAPSULE PO SCH ×3 (08:43→20:23)
[2020-07-03] MEDS: HEPARIN 5,000 UNIT/ML VIAL SQ SCH ×2 (08:43→20:24)
[2020-07-03] MEDS: VENLAFAXINE 75 MG CAP.XL.24H PO SCH (08:43)
[2020-07-03] MEDS: MULTIVIT,THER IRON,CA,FA & MIN 1 TABLET PO SCH (08:43)
[2020-07-03] MEDS: BACLOFEN 10 MG TABLET PO SCH ×4 (08:44→20:23)
[2020-07-03] MEDS: DOCUSATE SODIUM 100 MG CAPSULE PO SCH ×2 (08:44→23:12)
[2020-07-03] MEDS: MONTELUKAST 10 MG TABLET PO SCH (08:44)
[2020-07-03] MEDS: FLUTICASONE/SALMETEROL 250/50 INHALER #14 INH SCH ×3 (08:51→20:45)
[2020-07-03] MEDS: LEVALBUTEROL 0.63 MG/3 ML AMPUL.NEB INH SCH ×2 (08:53→09:03)
[2020-07-03] MEDS ORDERED: DEXAMETHASONE 4 MG TABLET PO SCH (09:00)
[2020-07-03] MEDS ORDERED: DANTROLENE SODIUM 20 MG VIAL IV SCH (10:00)
[2020-07-03] MEDS: AZITHROMYCIN 500 MG in DEXTROSE 5% IN WATER 250 ML IV SCH (10:28)
[2020-07-03] MEDS: 0.9 % SODIUM CHLORIDE 1,000 ML IV SCH ×3 (10:29→23:13)
[2020-07-03] MEDS ORDERED: LORazepam 2 MG/ML VIAL IV PRN (10:55)
--- NOTE | 2020-07-03 11:00 | Internal Med Progress Note ---
SUBJECTIVE Subjective Patient information: Note initiated : 07/03/20 at 10:57 am Service Date, if different from initiated Date: [] Patient: Kiya Smith a 35 y/o F admitted on 07/01/20 for congestion and cough. Chief Complaint: [] Interval history: History of present illness: Ms. Smith is a 35 year old F With a history of prior sinus surgery/paraplegia and wheelchair dependent who presents to the ER with 3 days onset of worsening weakness/myalgias/cough/fever headache and loss of appetite. Symptoms are progressed with increasing shortness of breath along with right ear pain. She is endorses to sick contact with URI symptoms. With progressive symptoms she presents to the ER with initial work-up was consistent with bilateral pneumonia suspicious for Covid. White count 70,000. Patient was started on antibiotic coverage/bronchodilators and breathing treatments. Elevated ALT precludes use of remdesivir. Hospital service was consulted. At the time of evaluation patient is very anxious/frequent spells of coughing. She endorses history as above. Denies diarrhea, dysuria, abdominal pain. Her symptoms has been relieved with Tylenol. She has known paraplegia and is wheelchair dependent and has been taking baclofen/oxycodone without help 2/-patient doing well. No overnight events. No concerns per staff. No fever chills nausea vomiting. White count downtrending. No overnight fever chills. Persistent cough and shortness of breath. Currently on room air. Tachycardia improved. ABG improving 07/03-patient clinically improving with antibiotics. Shortness breath improved. Now on room air. Improved cough. White count 16.7. Patient experiencing frequent neuromuscular spasm generalized with tonic posturing/spontaneous dislocation of shoulder requiring multiple doses of Robaxin/baclofen/lorazepam/IV magnesium to no effect. Patient responded well to dantrolene. No indication of drug-induced dyskinesis/neuroleptic malignant syndrome. Patient started on every 6 hours dantrolene along with cyclobenzaprine/methocarbamol and lorazepam. Constitutional Vitals: Vital Signs Temp Pulse Resp BP Pulse Ox 98.0 F 95 H 20 92/66 98 07/03/20 08:04 07/03/20 09:05 07/03/20 09:05 07/03/20 08:04 07/03/20 09:04 Period Temp Pulse Resp BP Sys/Pena Pulse Ox Last 24 Hr 96.7 F-99.5 F 90-105 14-26 88-122/56-88 94-98 Intake and Output 07/02/20 07/03/20 07/03/20 21:59 05:59 13:59 Intake Total 1550 350 100 Output Total 400 200 1 Balance 1150 150 99 Weight 74.106 kg Alert oriented Nonlabored breathing Very anxious No telemetry events other than tachycardia during spasmodic episodes Intake & Output: Intake & Output 07/02/20 07/03/20 07/03/20 21:59 05:59 13:59 Intake Total 1550 350 100 Output Total 400 200 1 Balance 1150 150 99 Weight 74.106 kg Intake: IV 1300 50 100 Sodium Chloride 0.9% 1,000 ml @ 1000 50 mls/hr IV .Q20H [facility] Rx#: [id number] Zithromax 500 mg In Dextrose 5% 250 in Water 250 ml @ 250 mls/hr IV DAILY [facility] Rx#:[id number] MAGNESIUM SULFATE 2 gm In 50 ml 50 @ 0 mls/hr IV .STK-MED [facility] Rx# :[id number] Zosyn 3.375 gm In Dextrose 5% 50 50 50 in Water 50 ml @ 100 mls/hr IV Q6H [facility] Rx#:[id number] Oral 250 300 Output: Void Amount 400 200 # of times incontinent of urine 1 Other: Meal Dinner Percent of Meal Consumed 75% Feeding Ability Independent Urine Appearance Clear Clear Urine Color Dark Yellow Dark Yellow Urine Odor Normal Normal # of times incontinent of 1 Bowels OBJ DATA Labs CBC & Chem 7: 07/03/20 03:30 07/03/20 03:30 Labs: Abnormal Lab Results 07/03/20 07/03/20 07/03/20 03:30 03:30 03:30 WBC RBC Hgb Hct POC Hct 34 L Plt Count Neut % (Auto) Lymph % (Auto) Lymph # (Auto) [place] # (Auto) Absolute Neutrophils D-Dimer 0.73 H POC Chloride 111 H Carbon Dioxide 16 L POC Total CO2 17 L Anion Gap 20.0 H Glucose POC WB Ioniz Calcium 1.08 L Phosphorus 4.8 H GGT 178 H AST ALT 97 H Alkaline Phosphatase 169 H 07/03/20 07/02/20 07/02/20 03:30 07:15 06:02 WBC 16.2 H 16.7 H RBC 3.52 L 3.55 L Hgb 11.7 L 11.5 L Hct 33.7 L 35.1 L POC Hct Plt Count 480 H Neut % (Auto) 89.9 H Lymph % (Auto) 5.3 L Lymph # (Auto) 0.89 L [place] # (Auto) 1.37 H Absolute Neutrophils 11.11 H 14.96 H D-Dimer POC Chloride Carbon Dioxide 20 L POC Total CO2 Anion Gap Glucose 126 H POC WB Ioniz Calcium Phosphorus 1.8 L GGT 195 H AST ALT 124 H Alkaline Phosphatase 198 H 07/02/20 07/01/20 07/01/20 06:02 15:18 15:18 WBC 17.0 H RBC Hgb Hct POC Hct Plt Count Neut % (Auto) 82.6 H Lymph % (Auto) 9.6 L Lymph # (Auto) [place] # (Auto) 1.23 H Absolute Neutrophils 14.03 H D-Dimer 0.85 H POC Chloride Carbon Dioxide 21 L POC Total CO2 Anion Gap Glucose POC WB Ioniz Calcium Phosphorus GGT AST 65 H ALT 194 H Alkaline Phosphatase 262 H Meds: Medications Acetaminophen (Tylenol) 650 mg PO Q4-6HP PRN; Protocol PRN Reason: Per Pain Protocol/Fever > 101 Last Admin: 07/03/20 01:49 Dose: 650 mg Documented by: Baclofen (Lioresal) 20 mg PO QID [facility] Last Admin: 07/03/20 08:44 Dose: 20 mg Documented by: Bisacodyl (Dulcolax) 10 mg [place] Q2-3DAYS PRN PRN Reason: Constipation Dexamethasone (Decadron) 6 mg PO DAILY [facility] Last Admin: 07/03/20 08:43 Dose: 6 mg Documented by: Docusate Sodium (Colace) 100 mg PO BID [facility] Last Admin: 07/03/20 08:44 Dose: 100 mg Documented by: Gabapentin (Neurontin) 200 mg PO TID [facility] Last Admin: 07/03/20 08:43 Dose: 200 mg Documented by: Heparin Sodium (Porcine) (Heparin) 5,000 unit SQ Q12 [facility] Last Admin: 07/03/20 08:43 Dose: 5,000 unit Documented by: Potassium Chloride 40 meq/ (Dextrose) 520 mls @ 130 mls/hr IV UD PRN PRN Reason: K+ = or < 3.5 Acetaminophen (Ofirmev) 650 mg in 65 mls @ 130 mls/hr IV Q6HP PRN; Protocol PRN Reason: Per Pain Protocol/Fever > 101 Last Infusion: 07/02/20 05:45 Dose: Infused Documented by: Magnesium Sulfate (Magnesium Sulfate) 2 gm in 50 mls @ 50 mls/hr IV UD PRN PRN Reason: MG = or < 1.7 Sodium Chloride (Sodium Chloride 0.9%) 1,000 mls @ 50 mls/hr IV .Q20H [facility] Stop: 07/04/20 07:08 Last Admin: 07/03/20 10:29 Dose: Not Given Documented by: Piperacillin Sod/Tazobactam (Sod 3.375 gm/ Dextrose) 50 mls @ 100 mls/hr IV Q6H [facility]; Protocol Last Infusion: 07/03/20 07:15 Dose: Infused Documented by: Iron Carb/Multivit/[place]/Folic Acid (Multivitamin W/Minerals) 1 tab PO DAILY [facility] Last Admin: 07/03/20 08:43 Dose: 1 tab Documented by: Levalbuterol HCl (Xopenex) 0.63 mg INH QDAY [facility] Last Admin: 07/03/20 09:03 Dose: 0.63 mg Documented by: Lorazepam (Ativan) 1 mg IV Q4-6HP PRN PRN Reason: Spasms Melatonin (Melatonin 3mg Tablet) 3 mg PO HSP PRN PRN Reason: Insomnia Methocarbamol (Robaxin) 750 mg PO Q6HP PRN PRN Reason: Muscle Spasm Last Admin: 07/03/20 10:33 Dose: 750 mg Documented by: Montelukast Sodium (Singular) 10 mg PO DAILY [facility] Last Admin: 07/03/20 08:44 Dose: 10 mg Documented by: Ondansetron HCl (Zofran) 4 mg IV Q6HP PRN PRN Reason: Nausea And Vomiting Last Admin: 07/03/20 03:11 Dose: 4 mg Documented by: Ondansetron HCl (Zofran Odt) 4 mg SL Q4-6HP PRN; Protocol PRN Reason: Nausea And Vomiting Last Admin: 07/03/20 01:47 Dose: 4 mg Documented by: Oxycodone HCl (Roxicodone) 10 mg PO Q8HP PRN PRN Reason: Pain Last Admin: 07/03/20 10:33 Dose: 10 mg Documented by: Polyethylene Glycol (Miralax) 17 gm PO DAILYP PRN PRN Reason: Constipation Potassium Chloride (Klor-Con) 40 meq PO DAILYP PRN PRN Reason: K+ < 3.5 Potassium/Phosphorus/Sodium (Neutra Phos) 2 packet PO DAILY PRN PRN Reason: PHOS <2.5 Last Admin: 07/02/20 16:34 Dose: 2 packet Documented by: Fluticasone/Salmeterol (Advair 250-50 Diskus) 1 puff INH BID [facility] Last Admin: 07/03/20 09:57 Dose: 1 puff Documented by: Senna/Docusate Sodium (Senna Plus Tablet) 1 tab PO HS [facility] Last Admin: 07/02/20 20:40 Dose: 1 tab Documented by: Sodium Chloride (Saline Flush) 10 ml IV Q8 [facility] Last Admin: 07/03/20 05:24 Dose: Not Given Documented by: Venlafaxine HCl (Effexor Xr) 225 mg PO DAILY [facility] Last Admin: 07/03/20 08:43 Dose: 225 mg Documented by: A/P Narrative A/P Narrative: * Left lower lobe pneumonia -clinical improvement noted on antibiotic coverage. Covid test negative. * Acute exacerbation of asthma responded to steroids * Neuromuscular spasms requiring extensive antispasmodic. Recurring in the past but now episodes intensifying causing spontaneous joint dislocation. Pain consult for possible baclofen pump placement as outpatient. * Sepsis with endorgan dysfunction secondary to pneumonia. Clinically improving on antibiotic coverage. WBC 16.2 * history of chronic pain on oxycodone/methocarbamol/baclofen * acute otitis media-clinically improving on antibiotic coverage * History of paraparesis. Continue therapies as tolerated * Anxiety disorder on venlafaxine * Prophylaxis Heparin Plan * Continue antibiotic coverage * Antispasmodic including cyclobenzaprine/baclofen/methocarbamol/lorazepam as needed/dantrolene * Steroids and bronchodilators * Discharge planning with outpatient pain clinic referral for baclofen pump Time Spent With Patient Time: Total time spent is greater than 50% in coordination of care (as documented) at patient's floor/unit and/or counseling patient:
[2020-07-03] MEDS ORDERED: CARISOPRODOL 350 MG TABLET PO PRN (11:01)
[2020-07-03] MEDS ORDERED: METHOCARBAMOL 750 MG TABLET PO PRN (11:15)
[2020-07-03] MEDS ORDERED: MAGNESIUM SULFATE 2 GM/50 ML BAG IV PRN (11:43)
[2020-07-03] MEDS ORDERED: POLYETHYLENE GLYCOL 3350 17 GM PACKET PO PRN (11:43)
[2020-07-03] MEDS ORDERED: POTASSIUM CHLORIDE 40 MEQ in DEXTROSE 5% IN WATER 500 ML IV PRN (11:43)
[2020-07-03] MEDS ORDERED: POTASSIUM CHLORIDE 20 MEQ PACKET PO PRN (11:43)
[2020-07-03] MEDS ORDERED: ONDANSETRON 4 MG/2 ML VIAL IV PRN (11:43)
[2020-07-03] MEDS ORDERED: MELATONIN 3 MG TABLET PO PRN (11:43)
[2020-07-03] MEDS ORDERED: BISACODYL 10 MG SUPP.RECT PR PRN (11:43)
[2020-07-03] MEDS ORDERED: NEUTRA PHOS 1 PACKET PO PRN (11:43)
[2020-07-03] MEDS ORDERED: ACETAMINOPHEN 650 MG/65 ML BAG IV PRN (11:43)
[2020-07-03] MEDS: CARISOPRODOL 350 MG TABLET PO PRN ×2 (20:06→23:57)
[2020-07-03] MEDS: LORazepam 2 MG/ML VIAL IV PRN (20:11)
[2020-07-03] MEDS: SENNOSIDES/DOCUSATE SODIUM 1 TAB TABLET PO SCH (23:12)
[2020-07-04] MEDS: CARISOPRODOL 350 MG TABLET PO PRN ×2 (03:15→23:12)
[2020-07-04] MEDS: METHOCARBAMOL 750 MG TABLET PO PRN (03:15)
[2020-07-04] MEDS: LORazepam 2 MG/ML VIAL IV PRN ×2 (03:35→09:57)
[2020-07-04] MEDS: oxyCODONE HCL 5 MG TABLET PO PRN ×2 (04:17→19:01)
[2020-07-04] MEDS: 0.9 % SODIUM CHLORIDE 10 ML SYRINGE IV SCH ×3 (05:50→21:25)
[2020-07-04] MEDS: PIPERACILLIN SODIUM/TAZOBACTAM 3.375 GM in DEXTROSE 5% IN WATER 50 ML IV SCH (05:52)
[2020-07-04 06:31] LABS: Basophils # (Auto) 0.03 K/mcL (0.00-0.20); Basophils % (Auto) 0.4 % (0.0-2.0); Eosinophils # (Auto) 0.02 K/mcL (0.00-0.70); Eosinophils % (Auto) 0.3 % (0.0-7.0); Hematocrit 30.3 % (36.0-48.0); Hemoglobin 10.4 g/dL (12.0-15.0); Lymphocytes % (Auto) 23.8 % (15.0-49.0); Mean Cell Volume 97.7 fL (80.0-100.0); Mean Corpuscular HGB Conc 34.3 g/dL (31.0-36.0); Monocytes # (Auto) 0.79 K/mcL (0.10-0.90); Monocytes % (Auto) 9.9 % (1.0-12.0); Neutrophils % (Auto) 65.6 % (38.0-78.0); Platelet Count 360 K/mcL (140-440); Red Cell Distribution Width 14.5 % (11.5-14.5)
[2020-07-04 07:17] LABS: ALT/SGPT 71 U/L (<40); AST/SGOT 28 U/L (<32); Albumin 3.7 gm/dL (3.2-5.2); Albumin/Globulin Ratio 1.4 (1.0-2.3); Alkaline Phosphatase 143 U/L (39-117); Bilirubin,Direct < 0.2 mg/dL (<0.3); Bilirubin,Total 0.2 mg/dL (0.1-1.0); Blood Urea Nitrogen 10 mg/dL (6-20); Calcium 8.5 mg/dL (8.6-10.4); Carbon Dioxide 21 mmol/L (22-30); Chloride 105 mmol/L (96-108); Globulin 2.7 gm/dL (2.2-3.7); Glomerular Filtration Rate 114; Glucose 82 mg/dL (70-105); Lactate Dehydrogenase 160 U/L (135-225); Phosphorous 4.2 mg/dL (2.5-4.5); Triglycerides 93 mg/dL (<150); Uric Acid 3.2 mg/dL (2.5-8.0)
[2020-07-04] MEDS ORDERED: BENZTROPINE 1 MG TABLET PO SCH (09:00)
[2020-07-04] MEDS ORDERED: METHOCARBAMOL 750 MG TABLET PO SCH (09:00)
[2020-07-04] MEDS ORDERED: DEXAMETHASONE 4 MG TABLET PO SCH (09:00)
[2020-07-04] MEDS ORDERED: CYCLOBENZAPRINE 10 MG TABLET PO SCH (09:00)
[2020-07-04] MEDS: GABAPENTIN 100 MG CAPSULE PO SCH ×2 (09:30→14:59)
[2020-07-04] MEDS: VENLAFAXINE 75 MG CAP.XL.24H PO SCH (09:30)
[2020-07-04] MEDS: MULTIVIT,THER IRON,CA,FA & MIN 1 TABLET PO SCH (09:31)
[2020-07-04] MEDS: HEPARIN 5,000 UNIT/ML VIAL SQ SCH ×2 (09:31→21:17)
[2020-07-04] MEDS: BACLOFEN 10 MG TABLET PO SCH ×4 (09:31→21:17)
[2020-07-04] MEDS: MONTELUKAST 10 MG TABLET PO SCH (09:31)
[2020-07-04] MEDS: FLUTICASONE/SALMETEROL 250/50 INHALER #14 INH SCH ×2 (09:35→21:15)
[2020-07-04] MEDS: DOCUSATE SODIUM 100 MG CAPSULE PO SCH ×2 (09:36→21:17)
[2020-07-04] MEDS ORDERED: PNEUMOCOCCAL 23-VAL P-SAC VAC 0.5 ML SYRINGE IM ONE (10:00)
[2020-07-04] MEDS: LEVALBUTEROL 0.63 MG/3 ML AMPUL.NEB INH SCH (10:13)
--- NOTE | 2020-07-04 10:37 | Internal Med Progress Note ---
SUBJECTIVE Subjective Patient information: Note initiated : 07/04/20 at 10:33 am Service Date, if different from initiated Date: [] Patient: Kiay Smith a 35 y/o F admitted on 07/01/20 for congestion and cough. Chief Complaint: [] Interval history: History of present illness: Ms. Smith is a 35 year old F With a history of prior sinus surgery/paraplegia and wheelchair dependent who presents to the ER with 3 days onset of worsening weakness/myalgias/cough/fever headache and loss of appetite. Symptoms are progressed with increasing shortness of breath along with right ear pain. She is endorses to sick contact with URI symptoms. With progressive symptoms she presents to the ER with initial work-up was consistent with bilateral pneumonia suspicious for Covid. White count 70,000. Patient was started on antibiotic coverage/bronchodilators and breathing treatments. Elevated ALT precludes use of remdesivir. Hospital service was consulted. At the time of evaluation patient is very anxious/frequent spells of coughing. She endorses history as above. Denies diarrhea, dysuria, abdominal pain. Her symptoms has been relieved with Tylenol. She has known paraplegia and is wheelchair dependent and has been taking baclofen/oxycodone without help 07/02-patient doing well. No overnight events. No concerns per staff. No fever chills nausea vomiting. White count downtrending. No overnight fever chills. Persistent cough and shortness of breath. Currently on room air. Tachycardia improved. ABG improving 07/03-patient clinically improving with antibiotics. Shortness breath improved. Now on room air. Improved cough. White count 16.7. Patient experiencing frequent neuromuscular spasm generalized with tonic posturing/spontaneous dislocation of shoulder requiring multiple doses of Robaxin/baclofen/lorazepam/IV magnesium to no effect. Patient responded well to dantrolene. No indication of drug-induced dyskinesis/neuroleptic malignant syndrome. Patient started on every 6 hours dantrolene along with cyclobenzaprine/methocarbamol and lorazepam. 07/04-pneumonia clinically resolved. Now on room air. White count 8000. However persistent dystonic reaction/muscle spasm requiring carisoprodol/baclofen/gabapentin Ativan. In addition patient started on benzo atropine/methocarbamol and cyclobenzaprine. Intermittent pain clinic consulted however patient would require outpatient follow-up for evaluation and authorization/preapproval for pump placement. Will discuss with neurology for possible options. If patient clinically improves will be discharged 24 hours. Constitutional Vitals: Vital Signs Temp Pulse Resp BP Pulse Ox 98.5 F 76 20 105/54 95 07/04/20 08:01 07/04/20 10:09 07/04/20 10:09 07/04/20 08:01 07/04/20 08:01 Period Temp Pulse Resp BP Sys/Pena Pulse Ox Last 24 Hr 96.8 F-98.5 F 70-111 14-32 95-166/54-143 91-100 Intake and Output 07/03/20 07/04/20 07/04/20 21:59 05:59 13:59 Intake Total 50 2250 50 Output Total 151 400 Balance -101 1850 50 Weight 73.482 kg anxious Tachycardic Recurrence spasms Nonlabored breathing Intake & Output: Intake & Output 07/03/20 07/04/20 07/04/20 21:59 05:59 13:59 Intake Total 50 2250 50 Output Total 151 400 Balance -101 1850 50 Weight 73.482 kg Intake: IV 50 1050 50 Sodium Chloride 0.9% 1,000 ml @ 1000 50 mls/hr IV .Q20H [facility] Rx#: [id number] Zosyn 3.375 gm In Dextrose 5% 50 50 50 in Water 50 ml @ 100 mls/hr IV Q6H [facility] Rx#:[id number] Oral 1200 Output: Urine Catheter Amount 150 Void Amount 400 # of times incontinent of urine 1 Other: Meal snack Percent of Meal Consumed 25% Feeding Ability Independent Urine Appearance Clear Clear Urine Color Bright Yellow Bright Yellow Urine Odor Normal OBJ DATA Labs CBC & Chem 7: 07/04/20 05:15 07/04/20 05:15 Labs: Abnormal Lab Results 07/04/20 07/04/20 07/03/20 05:15 05:15 03:30 WBC RBC 3.10 L Hgb 10.4 L Hct 30.3 L POC Hct 34 L Plt Count Neut % (Auto) Lymph % (Auto) Lymph # (Auto) [place] # (Auto) Absolute Neutrophils D-Dimer POC Chloride 111 H Carbon Dioxide 21 L POC Total CO2 17 L Anion Gap Glucose Calcium 8.5 L POC WB Ioniz Calcium 1.08 L Phosphorus GGT 153 H AST ALT 71 H Alkaline Phosphatase 143 H 07/03/20 07/03/20 07/03/20 03:30 03:30 03:30 WBC 16.2 H RBC 3.52 L Hgb 11.7 L Hct 33.7 L POC Hct Plt Count 480 H Neut % (Auto) Lymph % (Auto) Lymph # (Auto) [place] # (Auto) 1.37 H Absolute Neutrophils 11.11 H D-Dimer 0.73 H POC Chloride Carbon Dioxide 16 L POC Total CO2 Anion Gap 20.0 H Glucose Calcium POC WB Ioniz Calcium Phosphorus 4.8 H GGT 178 H AST ALT 97 H Alkaline Phosphatase 169 H 07/02/20 07/02/20 07/02/20 07:15 06:02 06:02 WBC 16.7 H RBC 3.55 L Hgb 11.5 L Hct 35.1 L POC Hct Plt Count Neut % (Auto) 89.9 H Lymph % (Auto) 5.3 L Lymph # (Auto) 0.89 L [place] # (Auto) Absolute Neutrophils 14.96 H D-Dimer 0.85 H POC Chloride Carbon Dioxide 20 L POC Total CO2 Anion Gap Glucose 126 H Calcium POC WB Ioniz Calcium Phosphorus 1.8 L GGT 195 H AST ALT 124 H Alkaline Phosphatase 198 H 07/01/20 07/01/20 15:18 15:18 WBC 17.0 H RBC Hgb Hct POC Hct Plt Count Neut % (Auto) 82.6 H Lymph % (Auto) 9.6 L Lymph # (Auto) [place] # (Auto) 1.23 H Absolute Neutrophils 14.03 H D-Dimer POC Chloride Carbon Dioxide 21 L POC Total CO2 Anion Gap Glucose Calcium POC WB Ioniz Calcium Phosphorus GGT AST 65 H ALT 194 H Alkaline Phosphatase 262 H Meds: Medications Acetaminophen (Tylenol) 650 mg PO Q4-6HP PRN; Protocol PRN Reason: Per Pain Protocol/Fever > 101 Baclofen (Lioresal) 20 mg PO QID [facility] Last Admin: 07/04/20 09:31 Dose: 20 mg Documented by: Benztropine Mesylate (Cogentin) 1 mg PO BID [facility] Bisacodyl (Dulcolax) 10 mg MI Q2-3DAYS PRN PRN Reason: Constipation Carisoprodol (Soma) 350 mg PO TIDP PRN PRN Reason: Muscle Spasm Last Admin: 07/04/20 03:15 Dose: 350 mg Documented by: Cyclobenzaprine HCl (Flexeril) 5 mg PO TID COUNTS INCLUDE 234 BEDS AT THE [facility] Dexamethasone (Decadron) 6 mg PO DAILY COUNTS INCLUDE 234 BEDS AT THE [facility] Last Admin: 07/04/20 09:30 Dose: 6 mg Documented by: Docusate Sodium (Colace) 100 mg PO BID COUNTS INCLUDE 234 BEDS AT THE [facility] Last Admin: 07/04/20 09:36 Dose: Not Given Documented by: Gabapentin (Neurontin) 200 mg PO TID COUNTS INCLUDE 234 BEDS AT THE [facility] Last Admin: 07/04/20 09:30 Dose: 200 mg Documented by: Heparin Sodium (Porcine) (Heparin) 5,000 unit SQ Q12 COUNTS INCLUDE 234 BEDS AT THE [facility] Last Admin: 07/04/20 09:31 Dose: 5,000 unit Documented by: Acetaminophen (Ofirmev) 650 mg in 65 mls @ 130 mls/hr IV Q6HP PRN; Protocol PRN Reason: Per Pain Protocol/Fever > 101 Magnesium Sulfate (Magnesium Sulfate) 2 gm in 50 mls @ 50 mls/hr IV UD PRN PRN Reason: MG = or < 1.7 Piperacillin Sod/Tazobactam (Sod 3.375 gm/ Dextrose) 50 mls @ 100 mls/hr IV Q6H COUNTS INCLUDE 234 BEDS AT THE [facility]; Protocol Last Infusion: 07/04/20 06:25 Dose: Infused Documented by: Potassium Chloride 40 meq/ (Dextrose) 520 mls @ 130 mls/hr IV UD PRN PRN Reason: K+ = or < 3.5 Iron Carb/Multivit/Gordon/Folic Acid (Multivitamin W/Minerals) 1 tab PO DAILY COUNTS INCLUDE 234 BEDS AT THE [facility] Last Admin: 07/04/20 09:31 Dose: 1 tab Documented by: Levalbuterol HCl (Xopenex) 0.63 mg INH QDAY COUNTS INCLUDE 234 BEDS AT THE [facility] Last Admin: 07/04/20 10:13 Dose: 0.63 mg Documented by: Lorazepam (Ativan) 1 mg IV Q4-6HP PRN PRN Reason: Spasms Last Admin: 07/04/20 09:57 Dose: 1 mg Documented by: Melatonin (Melatonin 3mg Tablet) 3 mg PO HSP PRN PRN Reason: Insomnia Methocarbamol (Robaxin) 750 mg PO TID COUNTS INCLUDE 234 BEDS AT THE [facility] Montelukast Sodium (Singular) 10 mg PO DAILY COUNTS INCLUDE 234 BEDS AT THE [facility] Last Admin: 07/04/20 09:31 Dose: 10 mg Documented by: Ondansetron HCl (Zofran Odt) 4 mg SL Q4-6HP PRN; Protocol PRN Reason: Nausea And Vomiting Ondansetron HCl (Zofran) 4 mg IV Q6HP PRN PRN Reason: Nausea And Vomiting Oxycodone HCl (Roxicodone) 10 mg PO Q8HP PRN PRN Reason: Pain Last Admin: 07/04/20 04:17 Dose: 10 mg Documented by: Polyethylene Glycol (Miralax) 17 gm PO DAILYP PRN PRN Reason: Constipation Potassium Chloride (Klor-Con) 40 meq PO DAILYP PRN PRN Reason: K+ < 3.5 Potassium/Phosphorus/Sodium (Neutra Phos) 2 packet PO DAILY PRN PRN Reason: PHOS <2.5 Fluticasone/Salmeterol (Advair 250-50 Diskus) 1 puff INH BID COUNTS INCLUDE 234 BEDS AT THE [facility] Last Admin: 07/04/20 09:35 Dose: 1 puff Documented by: Senna/Docusate Sodium (Senna Plus Tablet) 1 tab PO HS COUNTS INCLUDE 234 BEDS AT THE [facility] Last Admin: 07/03/20 23:12 Dose: Not Given Documented by: Sodium Chloride (Saline Flush) 10 ml IV Q8 COUNTS INCLUDE 234 BEDS AT THE [facility] Last Admin: 07/04/20 05:50 Dose: Not Given Documented by: Venlafaxine HCl (Effexor Xr) 225 mg PO DAILY COUNTS INCLUDE 234 BEDS AT THE [facility] Last Admin: 07/04/20 09:30 Dose: 225 mg Documented by: A/P Narrative A/P Narrative: * Left lower lobe pneumonia -clinical resolution noted on antibiotic coverage. Transition to p.o. antibiotics * Acute exacerbation of asthma clinically resolved with steroids. Continue bronchodilators as needed. * Neuromuscular spasms requiring extensive antispasmodics. Recurring in the past but now episodes intensifying causing spontaneous joint dislocation. Responded initially to dantrolene however not available for further use. Intervention pain clinic consultation for outpatient pump placement. Currently on captopril/baclofen/gabapentin/Ativan, adding methocarbamol //quetiapine/benzo atropine today. Dantrolene not available * Sepsis with endorgan dysfunction secondary to pneumonia. Clinically resolved. White count normalized. Down to 8000 from 17 * history of chronic pain on oxycodone/methocarbamol/baclofen * acute otitis media-clinically resolved * History of paraparesis following traumatic spinal injury. Continue therapies as tolerated * Anxiety disorder on venlafaxine * Prophylaxis Heparin Plan * Transition to p.o. antibiotics * Continue antispasmodic including cyclobenzaprine/Risperdal/gabapentin/baclofen/methocarbamol/lorazepam, add Cogentin * Steroids and bronchodilators * Discharge planning with outpatient pain clinic referral for baclofen pump Time Spent With Patient Time: Total time spent is greater than 50% in coordination of care (as documented) at patient's floor/unit and/or counseling patient:
[2020-07-04] MEDS: cefTRIAXone 2 GM in DEXTROSE 5% IN WATER 50 ML IV SCH (11:41)
[2020-07-04] MEDS ORDERED: DIAZEPAM 5 MG TABLET PO SCH (12:30)
[2020-07-04] MEDS ORDERED: DIAZEPAM 5 MG TABLET PO PRN (12:46)
[2020-07-04] MEDS: tiZANidine 4 MG TABLET PO SCH ×2 (14:59→21:18)
[2020-07-04] MEDS ORDERED: DIAZEPAM 10 MG/2 ML SYRINGE IM ONE ×2 (17:00→17:20)
[2020-07-04] MEDS ORDERED: DIAZEPAM 10 MG/2 ML SYRINGE ONE (17:29)
[2020-07-04] MEDS: METHOCARBAMOL 750 MG TABLET PO SCH (17:57)
[2020-07-04] MEDS ORDERED: GABAPENTIN 400 MG CAPSULE PO SCH (18:15)
[2020-07-04] MEDS ORDERED: GABAPENTIN 300 MG CAPSULE PO ONE ×2 (18:34→18:41)
[2020-07-04] MEDS ORDERED: GABAPENTIN 300 MG CAPSULE ONE (19:00)
[2020-07-04] MEDS: DIAZEPAM 10 MG/2 ML SYRINGE IV SCH (20:27)
[2020-07-04] MEDS ORDERED: GABAPENTIN 300 MG CAPSULE PO SCH ×2 (21:00)
[2020-07-04] MEDS: SENNOSIDES/DOCUSATE SODIUM 1 TAB TABLET PO SCH (21:18)
[2020-07-04] MEDS: ONDANSETRON 4 MG ODT TABLET SL PRN (22:57)
[2020-07-05] MEDS ORDERED: GABAPENTIN 300 MG CAPSULE PO ONE
[2020-07-05] MEDS: DIAZEPAM 10 MG/2 ML SYRINGE IV SCH ×3 (00:20→08:13)
[2020-07-05] MEDS: METHOCARBAMOL 750 MG TABLET PO SCH ×4 (00:20→17:17)
[2020-07-05] MEDS: 0.9 % SODIUM CHLORIDE 10 ML SYRINGE IV PRN ×2 (04:50→05:46)
[2020-07-05] MEDS: 0.9 % SODIUM CHLORIDE 10 ML SYRINGE IV SCH ×5 (05:46→21:36)
[2020-07-05 06:11] LABS: Basophils # (Auto) 0.03 K/mcL (0.00-0.20); Basophils % (Auto) 0.4 % (0.0-2.0); Eosinophils # (Auto) 0.02 K/mcL (0.00-0.70); Eosinophils % (Auto) 0.3 % (0.0-7.0); Hematocrit 29.4 % (36.0-48.0); Hemoglobin 10.5 g/dL (12.0-15.0); Lymphocytes # (Auto) 2.14 K/mcL (1.50-4.80); Lymphocytes % (Auto) 28.2 % (15.0-49.0); Mean Cell Volume 95.8 fL (80.0-100.0); Mean Corpuscular HGB Conc 35.7 g/dL (31.0-36.0); Mean Platelet Volume 9.8 fL (7.4-10.4); Monocytes # (Auto) 1.02 K/mcL (0.10-0.90); Monocytes % (Auto) 13.4 % (1.0-12.0); Neutrophils % (Auto) 57.7 % (38.0-78.0); Platelet Count 396 K/mcL (140-440); RBC 3.07 M/mcL (4.00-5.20); Red Cell Distribution Width 14.2 % (11.5-14.5); WBC 7.6 K/mcL (4.5-11.0)
--- NOTE | 2020-07-05 06:17 | XRay Report ---
INDICATION: PICC PLACEMENT TECHNIQUE: AP supine chest x-ray chest x-ray COMPARISON: Previous examination dated 07/03/2020 FINDINGS:Right-sided PICC line with its tip in the superior vena cava Lungs:Mildly prominent interstitial markings bilaterally. No focal consolidation or mass Heart, vascular:No significant cardiomegaly. Pulmonary vascularity is normal. No pulmonary edema or pulmonary congestion Mediastinum, calin:No mediastinal widening. No hilar mass Pleura:No pleural fluid. No pleural-based mass or calcification Skeletal:Negative. IMPRESSION: Right-sided PICC line in the superior vena cava Interpreted and Authenticated by: Caden Ingram 07/05/20
[2020-07-05] MEDS: CARISOPRODOL 350 MG TABLET PO PRN (06:18)
[2020-07-05 06:26] LABS: ALT/SGPT 56 U/L (<40); AST/SGOT 23 U/L (<32); Albumin 3.6 gm/dL (3.2-5.2); Albumin/Globulin Ratio 1.1 (1.0-2.3); Alkaline Phosphatase 135 U/L (39-117); Bilirubin,Direct < 0.2 mg/dL (<0.3); Bilirubin,Total 0.2 mg/dL (0.1-1.0); Blood Urea Nitrogen 11 mg/dL (6-20); Calcium 8.5 mg/dL (8.6-10.4); Carbon Dioxide 22 mmol/L (22-30); Chloride 105 mmol/L (96-108); Globulin 3.2 gm/dL (2.2-3.7); Glomerular Filtration Rate 120; Glucose 80 mg/dL (70-105); Lactate Dehydrogenase 158 U/L (135-225); Phosphorous 4.5 mg/dL (2.5-4.5); Triglycerides 111 mg/dL (<150); Uric Acid 4.5 mg/dL (2.5-8.0)
[2020-07-05] MEDS: LEVALBUTEROL 0.63 MG/3 ML AMPUL.NEB INH SCH (07:59)
[2020-07-05] MEDS: oxyCODONE HCL 5 MG TABLET PO PRN ×2 (08:13→15:47)
[2020-07-05] MEDS: ONDANSETRON 4 MG ODT TABLET SL PRN (09:00)
[2020-07-05] MEDS: BACLOFEN 10 MG TABLET PO SCH ×4 (09:21→21:06)
[2020-07-05] MEDS: MULTIVIT,THER IRON,CA,FA & MIN 1 TABLET PO SCH (09:21)
[2020-07-05] MEDS: GABAPENTIN 300 MG CAPSULE PO SCH ×3 (09:21→21:06)
[2020-07-05] MEDS: VENLAFAXINE 75 MG CAP.XL.24H PO SCH (09:21)
[2020-07-05] MEDS: tiZANidine 4 MG TABLET PO SCH ×3 (09:22→21:06)
[2020-07-05] MEDS: MONTELUKAST 10 MG TABLET PO SCH (09:22)
[2020-07-05] MEDS: cefTRIAXone 2 GM in DEXTROSE 5% IN WATER 50 ML IV SCH (09:23)
[2020-07-05] MEDS: DOCUSATE SODIUM 100 MG CAPSULE PO SCH ×2 (09:23→20:46)
[2020-07-05] MEDS: HEPARIN 5,000 UNIT/ML VIAL SQ SCH ×2 (09:24→21:05)
[2020-07-05] MEDS: FLUTICASONE/SALMETEROL 250/50 INHALER #14 INH SCH ×2 (10:03→21:07)
[2020-07-05] MEDS ORDERED: ALTEPLASE 2 MG VIAL IV ONE (11:27)
--- NOTE | 2020-07-05 12:00 | Internal Med Progress Note ---
SUBJECTIVE Subjective Patient information: Note initiated : 07/05/20 at 11:53 am Service Date, if different from initiated Date: [] Patient: Kiya Smith a 35 y/o F admitted on 07/01/20 for congestion and cough. Chief Complaint: [] Interval history: History of present illness: Ms. Smith is a 35 year old F With a history of prior spinal surgery/paraplegia and wheelchair dependent who presents to the ER with 3 days onset of worsening weakness/myalgias/cough/fever headache and loss of appetite. Symptoms are progressed with increasing shortness of breath along with right ear pain. She is endorses to sick contact with URI symptoms. With progressive symptoms she presents to the ER with initial work-up was consistent with bilateral pneumonia suspicious for Covid. White count 70,000. Patient was started on antibiotic coverage/bronchodilators and breathing treatments. Elevated ALT precludes use of remdesivir. Hospital service was consulted. At the time of evaluation patient is very anxious/frequent spells of coughing. She endorses history as above. Denies diarrhea, dysuria, abdominal pain. Her symptoms has been relieved with Tylenol. She has known paraplegia and is wheelchair dependent and has been taking baclofen/oxycodone without help 07/02-patient doing well. No overnight events. No concerns per staff. No fever chills nausea vomiting. White count downtrending. No overnight fever chills. Persistent cough and shortness of breath. Currently on room air. Tachycardia improved. ABG improving 07/03-patient clinically improving with antibiotics. Shortness breath improved. Now on room air. Improved cough. White count 16.7. Patient experiencing frequent neuromuscular spasm generalized with tonic posturing/spontaneous dislocation of shoulder requiring multiple doses of Robaxin/baclofen/lorazepam/IV magnesium to no effect. Patient responded well to dantrolene. No indication of drug-induced dyskinesis/neuroleptic malignant syndrome. Patient started on every 6 hours dantrolene along with cyclobenzaprine/methocarbamol and lorazepam. 07/04-pneumonia clinically resolved. Now on room air. White count 8000. However persistent dystonic reaction/muscle spasm requiring carisoprodol/baclofen/gabapentin Ativan. In addition patient started on benzo atropine/methocarbamol and cyclobenzaprine. Intermittent pain clinic consulted however patient would require outpatient follow-up for evaluation and authorization/preapproval for pump placement. Will discuss with neurology for possible options. If patient clinically improves will be discharged 24 hours. 07/05-improved muscle spasm on Zanaflex/baclofen/Valium along with as needed carisoprodol. Gabapentin dose increased to 900 3 times daily. White count normalized. Interval resolution of pneumonia on imaging. Case management to coordinate transfer to [facility]/outpatient rehab for significant spasm related to prior spinal trauma. Also will need outpatient follow-up with pain clinic for baclofen pump placement. Constitutional Vitals: Vital Signs Temp Pulse Resp BP Pulse Ox 98.8 F 114 H 16 125/85 94 07/05/20 08:01 07/05/20 10:00 07/05/20 08:12 07/05/20 10:00 07/05/20 10:00 Period Temp Pulse Resp BP Sys/Pena Pulse Ox Last 24 Hr 97.5 F-99 F 71-120 12-41 104-141/58-90 91-100 Intake and Output 07/04/20 07/05/20 07/05/20 21:59 05:59 13:59 Intake Total 1181 360 120 Output Total 375 450 Balance 806 -90 120 Weight 72.711 kg alert but anxious and tearful Very distressed due to recurrent spasm Slept well overnight Telemetry tachycardia Newman draining clear urine Intake & Output: Intake & Output 07/04/20 07/05/20 07/05/20 21:59 05:59 13:59 Intake Total 1181 360 120 Output Total 375 450 Balance 806 -90 120 Weight 72.711 kg Intake: IV 981 Sodium Chloride 0.9% 1,000 ml @ 981 50 mls/hr IV .Q20H [facility] Rx#: [id number] Oral 360 120 Tube Feeding 200 Output: Urine Catheter Amount 375 150 Void Amount 300 Other: Meal Lunch Percent of Meal Consumed 25% Feeding Ability Independent Urine Appearance Clear Clear Uretheral (Newman) Clear Clear Urine Color Light Cyndi Bright Yellow Uretheral (Newman) Bright Yellow Bright Yellow Urine Odor Normal Normal Stool Size Moderate Stool Color Brown Stool Consistency Loose # Bowel Movements 1 OBJ DATA Labs CBC & Chem 7: 07/05/20 04:58 07/05/20 05:00 Labs: Abnormal Lab Results 07/05/20 07/05/20 07/04/20 05:00 04:58 05:15 WBC RBC 3.07 L Hgb 10.5 L Hct 29.4 L POC Hct MCH 34.2 H Plt Count [place] % (Auto) 13.4 H [place] # (Auto) 1.02 H Absolute Neutrophils D-Dimer POC Chloride Carbon Dioxide POC Total CO2 Anion Gap Calcium 8.5 L POC WB Ioniz Calcium Phosphorus GGT 148 H ALT 56 H Alkaline Phosphatase 135 H Total Creatine Kinase 399 H 07/04/20 07/04/20 07/03/20 05:15 05:15 03:30 WBC RBC 3.10 L Hgb 10.4 L Hct 30.3 L POC Hct 34 L MCH Plt Count [place] % (Auto) [place] # (Auto) Absolute Neutrophils D-Dimer POC Chloride 111 H Carbon Dioxide 21 L POC Total CO2 17 L Anion Gap Calcium 8.5 L POC WB Ioniz Calcium 1.08 L Phosphorus GGT 153 H ALT 71 H Alkaline Phosphatase 143 H Total Creatine Kinase 07/03/20 07/03/20 07/03/20 03:30 03:30 03:30 WBC 16.2 H RBC 3.52 L Hgb 11.7 L Hct 33.7 L POC Hct MCH Plt Count 480 H [place] % (Auto) [place] # (Auto) 1.37 H Absolute Neutrophils 11.11 H D-Dimer 0.73 H POC Chloride Carbon Dioxide 16 L POC Total CO2 Anion Gap 20.0 H Calcium POC WB Ioniz Calcium Phosphorus 4.8 H GGT 178 H ALT 97 H Alkaline Phosphatase 169 H Total Creatine Kinase Meds: Medications Acetaminophen (Tylenol) 650 mg PO Q4-6HP PRN; Protocol PRN Reason: Per Pain Protocol/Fever > 101 Baclofen (Lioresal) 20 mg PO QID [facility] Last Admin: 07/05/20 09:21 Dose: 20 mg Documented by: Bisacodyl (Dulcolax) 10 mg OR Q2-3DAYS PRN PRN Reason: Constipation Carisoprodol (Soma) 350 mg PO TIDP PRN PRN Reason: Muscle Spasm Last Admin: 07/05/20 06:18 Dose: 350 mg Documented by: Diazepam (Valium) 5 mg PO BID [facility] Diazepam (Valium) 5 mg IV Q4HP PRN PRN Reason: RIGIDITY Docusate Sodium (Colace) 100 mg PO BID [facility] Last Admin: 07/05/20 09:23 Dose: Not Given Documented by: Gabapentin (Neurontin) 900 mg PO TID [facility] Last Admin: 07/05/20 09:21 Dose: 900 mg Documented by: Heparin Sodium (Porcine) (Heparin) 5,000 unit SQ Q12 [facility] Last Admin: 07/05/20 09:24 Dose: 5,000 unit Documented by: Heparin Sodium (Porcine) (Heparin 10 Units/Ml Flush) 2 ml IV Q12 [facility] Last Admin: 07/05/20 09:24 Dose: 2 ml Documented by: Acetaminophen (Ofirmev) 650 mg in 65 mls @ 130 mls/hr IV Q6HP PRN; Protocol PRN Reason: Per Pain Protocol/Fever > 101 Magnesium Sulfate (Magnesium Sulfate) 2 gm in 50 mls @ 50 mls/hr IV UD PRN PRN Reason: MG = or < 1.7 Potassium Chloride 40 meq/ (Dextrose) 520 mls @ 130 mls/hr IV UD PRN PRN Reason: K+ = or < 3.5 Ceftriaxone Sodium 2 gm/ (Dextrose) 50 mls @ 100 mls/hr IV Q24H [facility]; Protocol Last Admin: 07/05/20 09:23 Dose: 100 mls/hr Documented by: Iron Carb/Multivit/Sas Developer/Folic Acid (Multivitamin W/Minerals) 1 tab PO DAILY [facility] Last Admin: 07/05/20 09:21 Dose: 1 tab Documented by: Levalbuterol HCl (Xopenex) 0.63 mg INH QDAY [facility] Last Admin: 07/05/20 07:59 Dose: 0.63 mg Documented by: Melatonin (Melatonin 3mg Tablet) 3 mg PO HSP PRN PRN Reason: Insomnia Methocarbamol (Robaxin) 750 mg PO Q6 [facility] Last Admin: 07/05/20 05:46 Dose: 750 mg Documented by: Montelukast Sodium (Singular) 10 mg PO DAILY [facility] Last Admin: 07/05/20 09:22 Dose: 10 mg Documented by: Ondansetron HCl (Zofran Odt) 4 mg SL Q4-6HP PRN; Protocol PRN Reason: Nausea And Vomiting Last Admin: 07/05/20 09:00 Dose: 4 mg Documented by: Ondansetron HCl (Zofran) 4 mg IV Q6HP PRN PRN Reason: Nausea And Vomiting Oxycodone HCl (Roxicodone) 10 mg PO Q8HP PRN PRN Reason: Pain Last Admin: 07/05/20 08:13 Dose: 10 mg Documented by: Polyethylene Glycol (Miralax) 17 gm PO DAILYP PRN PRN Reason: Constipation Potassium Chloride (Klor-Con) 40 meq PO DAILYP PRN PRN Reason: K+ < 3.5 Potassium/Phosphorus/Sodium (Neutra Phos) 2 packet PO DAILY PRN PRN Reason: PHOS <2.5 Fluticasone/Salmeterol (Advair 250-50 Diskus) 1 puff INH BID [facility] Last Admin: 07/04/20 21:15 Dose: 1 puff Documented by: Senna/Docusate Sodium (Senna Plus Tablet) 1 tab PO HS [facility] Last Admin: 07/04/20 21:18 Dose: Not Given Documented by: Sodium Chloride (Saline Flush) 10 ml IV Q8 [facility] Last Admin: 07/05/20 05:46 Dose: Not Given Documented by: Sodium Chloride (Saline Flush) 10 ml IV UD PRN PRN Reason: FLUSH Last Admin: 07/05/20 05:46 Dose: 10 ml Documented by: Sodium Chloride (Saline Flush) 10 ml IV Q12 [facility] Last Admin: 07/05/20 09:24 Dose: 10 ml Documented by: Tizanidine HCl (Zanaflex) 2 mg PO TID [facility] Last Admin: 07/05/20 09:22 Dose: 2 mg Documented by: Venlafaxine HCl (Effexor Xr) 225 mg PO DAILY [facility] Last Admin: 07/05/20 09:21 Dose: 225 mg Documented by: A/P Narrative A/P Narrative: * Left lower lobe pneumonia -clinical resolution noted on antibiotic coverage. Continue Rocephin * Acute exacerbation of asthma clinically resolved with steroids. Continue bronchodilators as needed. * Neuromuscular spasms requiring extensive antispasmodics. On scheduled gabapentin/venlafaxine/tizanidine/methocarbamol/baclofen/diazepam along with adjunctive carisoprodol. Case discussed with neurologist at [place] Dr. Madeline Ospina, recommend gradual up titration of tizanidine/medications as above to effect Keeping a close eye on respite depression/monitor for excessive sedation. Also recommended outpatient evaluation for baclofen pump. Patient would benefit from directed therapies, case management coordinating transfer to [facility] rehab * Sepsis with endorgan dysfunction secondary to pneumonia. Clinically resolved. White count normalized. Down to 8000 from 17 * history of chronic pain on oxycodone * acute otitis media-clinically resolved * History of paraparesis following traumatic spinal injury. Continue therapies as tolerated * Anxiety disorder on venlafaxine * Prophylaxis Heparin Plan * Continue antibiotics * Continue antispasmodics as above, rehab placement per case management * Steroids and bronchodilators * outpatient pain clinic referral for baclofen pump evaluation Time Spent With Patient Time: Total time spent is greater than 50% in coordination of care (as documented) at patient's floor/unit and/or counseling patient:
[2020-07-05] MEDS: DIAZEPAM 5 MG TABLET PO SCH ×2 (12:08→21:07)
[2020-07-05] MEDS: IPRATROPIUM/ALBUTEROL 3 ML AMPUL.NEB NEB PRN (15:47)
[2020-07-05] MEDS: DIAZEPAM 10 MG/2 ML SYRINGE IV PRN (15:48)
[2020-07-05] MEDS: ACETAMINOPHEN 325 MG TABLET PO PRN (19:23)
[2020-07-05] MEDS: BUDESONIDE 0.5 MG/2 ML AMPUL.NEB NEB SCH (20:22)
[2020-07-05] MEDS: SENNOSIDES/DOCUSATE SODIUM 1 TAB TABLET PO SCH (20:48)
[2020-07-06] MEDS: METHOCARBAMOL 750 MG TABLET PO SCH ×4 (00:18→17:18)
[2020-07-06] MEDS: oxyCODONE HCL 5 MG TABLET PO PRN (02:03)
[2020-07-06] MEDS: DIAZEPAM 10 MG/2 ML SYRINGE IV PRN (05:00)
[2020-07-06] MEDS ORDERED: LORazepam 2 MG/ML VIAL IV ONE (05:05)
[2020-07-06] MEDS ORDERED: LORazepam 2 MG/ML VIAL ONE ×2 (05:20→17:48)
[2020-07-06] MEDS: 0.9 % SODIUM CHLORIDE 10 ML SYRINGE IV SCH ×5 (05:31→21:34)
[2020-07-06 06:54] LABS: Basophils # (Auto) 0.03 K/mcL (0.00-0.20); Basophils % (Auto) 0.4 % (0.0-2.0); Eosinophils # (Auto) 0.18 K/mcL (0.00-0.70); Eosinophils % (Auto) 2.6 % (0.0-7.0); Hematocrit 33.4 % (36.0-48.0); Hemoglobin 11.6 g/dL (12.0-15.0); Lymphocytes # (Auto) 2.05 K/mcL (1.50-4.80); Lymphocytes % (Auto) 29.1 % (15.0-49.0); Mean Cell Volume 95.4 fL (80.0-100.0); Mean Corpuscular HGB Conc 34.7 g/dL (31.0-36.0); Mean Platelet Volume 9.7 fL (7.4-10.4); Monocytes # (Auto) 1.01 K/mcL (0.10-0.90); Monocytes % (Auto) 14.3 % (1.0-12.0); Neutrophils % (Auto) 53.6 % (38.0-78.0); Platelet Count 463 K/mcL (140-440); Red Cell Distribution Width 14.4 % (11.5-14.5); WBC 7.1 K/mcL (4.5-11.0)
[2020-07-06 07:16] LABS: ALT/SGPT 60 U/L (<40); AST/SGOT 39 U/L (<32); Albumin 3.7 gm/dL (3.2-5.2); Alkaline Phosphatase 154 U/L (39-117); Bilirubin,Direct < 0.2 mg/dL (<0.3); Bilirubin,Total 0.2 mg/dL (0.1-1.0); Blood Urea Nitrogen 7 mg/dL (6-20); Calcium 8.7 mg/dL (8.6-10.4); Carbon Dioxide 24 mmol/L (22-30); Chloride 101 mmol/L (96-108); Globulin 3.6 gm/dL (2.2-3.7); Glomerular Filtration Rate 120; Glucose 82 mg/dL (70-105); Lactate Dehydrogenase 171 U/L (135-225); Phosphorous 3.8 mg/dL (2.5-4.5); Triglycerides 98 mg/dL (<150); Uric Acid 4.6 mg/dL (2.5-8.0)
[2020-07-06] MEDS: BACLOFEN 10 MG TABLET PO SCH ×4 (08:23→20:36)
[2020-07-06] MEDS: VENLAFAXINE 75 MG CAP.XL.24H PO SCH (08:23)
[2020-07-06] MEDS: GABAPENTIN 300 MG CAPSULE PO SCH ×3 (08:23→20:36)
[2020-07-06] MEDS: MULTIVIT,THER IRON,CA,FA & MIN 1 TABLET PO SCH (08:24)
[2020-07-06] MEDS: ACETAMINOPHEN 325 MG TABLET PO PRN (08:24)
[2020-07-06] MEDS: DIAZEPAM 5 MG TABLET PO SCH (08:24)
[2020-07-06] MEDS: tiZANidine 4 MG TABLET PO SCH ×3 (08:24→20:37)
[2020-07-06] MEDS: MONTELUKAST 10 MG TABLET PO SCH (08:24)
[2020-07-06] MEDS: HEPARIN 5,000 UNIT/ML VIAL SQ SCH ×2 (08:25→20:36)
[2020-07-06] MEDS: DOCUSATE SODIUM 100 MG CAPSULE PO SCH ×2 (08:26→20:38)
[2020-07-06] MEDS: LEVALBUTEROL 0.63 MG/3 ML AMPUL.NEB INH SCH (08:43)
[2020-07-06] MEDS: FLUTICASONE/SALMETEROL 250/50 INHALER #14 INH SCH ×2 (09:03→20:38)
[2020-07-06] MEDS: cefTRIAXone 2 GM in DEXTROSE 5% IN WATER 50 ML IV SCH (09:04)
[2020-07-06] MEDS ORDERED: tiZANidine 4 MG TABLET PO ONE (10:15)
[2020-07-06] MEDS: ONDANSETRON 4 MG ODT TABLET SL PRN ×2 (13:39→17:17)
[2020-07-06] MEDS: BUDESONIDE 0.5 MG/2 ML AMPUL.NEB NEB SCH (16:31)
[2020-07-06] MEDS: IPRATROPIUM/ALBUTEROL 3 ML AMPUL.NEB NEB PRN (17:44)
[2020-07-06] MEDS: DIAZEPAM 10 MG TABLET PO SCH (20:37)
[2020-07-06] MEDS: SENNOSIDES/DOCUSATE SODIUM 1 TAB TABLET PO SCH (20:38)
--- NOTE | 2020-07-06 21:04 | Internal Med Progress Note ---
SUBJECTIVE Subjective Patient information: Note initiated : 07/06/20 at 9:04 pm Service Date, if different from initiated Date: [] Patient: Kiya Smith a 35 y/o F admitted on 07/01/20 for congestion and cough. Chief Complaint: [] Interval history: History of present illness: Ms. Smith is a 35 year old F With a history of prior spinal surgery/paraplegia and wheelchair dependent who presents to the ER with 3 days onset of worsening weakness/myalgias/cough/fever headache and loss of appetite. Symptoms are progressed with increasing shortness of breath along with right ear pain. She is endorses to sick contact with URI symptoms. With progressive symptoms she presents to the ER with initial work-up was consistent with bilateral pneumonia suspicious for Covid. White count 70,000. Patient was started on antibiotic coverage/bronchodilators and breathing treatments. Elevated ALT precludes use of remdesivir. Hospital service was consulted. At the time of evaluation patient is very anxious/frequent spells of coughing. She endorses history as above. Denies diarrhea, dysuria, abdominal pain. Her symptoms has been relieved with Tylenol. She has known paraplegia and is wheelchair dependent and has been taking baclofen/oxycodone without help 07/02-patient doing well. No overnight events. No concerns per staff. No fever chills nausea vomiting. White count downtrending. No overnight fever chills. Persistent cough and shortness of breath. Currently on room air. Tachycardia improved. ABG improving 07/03-patient clinically improving with antibiotics. Shortness breath improved. Now on room air. Improved cough. White count 16.7. Patient experiencing frequent neuromuscular spasm generalized with tonic posturing/spontaneous dislocation of shoulder requiring multiple doses of Robaxin/baclofen/lorazepam/IV magnesium to no effect. Patient responded well to dantrolene. No indication of drug-induced dyskinesis/neuroleptic malignant syndrome. Patient started on every 6 hours dantrolene along with cyclobenzaprine/methocarbamol and lorazepam. 07/04-pneumonia clinically resolved. Now on room air. White count 8000. However persistent dystonic reaction/muscle spasm requiring carisoprodol/baclofen/gabapentin Ativan. In addition patient started on benzo atropine/methocarbamol and cyclobenzaprine. Intermittent pain clinic consulted however patient would require outpatient follow-up for evaluation and authorization/preapproval for pump placement. Will discuss with neurology for possible options. If patient clinically improves will be discharged 24 hours. 07/05-improved muscle spasm on Zanaflex/baclofen/Valium along with as needed carisoprodol. Gabapentin dose increased to 900 3 times daily. White count n ormalized. Interval resolution of pneumonia on imaging. Case management to coordinate transfer to [facility]/outpatient rehab for significant spasm related to prior spinal trauma. Also will need outpatient follow-up with pain clinic for baclofen pump placement. 07/06-patient tolerating benzodiazepine/Zanaflex with improving generalized spasm intensity and frequency. Uptitrate Zanaflex/Valium to effect. DC antibiotics in 24 hours. Anticipate transfer to neuro rehab. Case management coordinating. Gradual clinical improvement noted. Newman is draining clear urine Constitutional Vitals: Vital Signs Temp Pulse Resp BP Pulse Ox 97.5 F 111 H 22 139/94 96 07/06/20 16:01 07/06/20 18:26 07/06/20 16:01 07/06/20 18:01 07/06/20 18:26 Period Temp Pulse Resp BP Sys/Pena Pulse Ox Last 24 Hr 97.5 F-99.3 F 82-125 16-22 102-139/60-94 94-100 Intake and Output 07/06/20 07/06/20 07/06/20 05:59 13:59 21:59 Intake Total 500 50 460 Output Total 525 625 Balance -25 50 -165 Weight 72.62 kg 72.603 kg Patient Weight 07/07/20 05:59 Weight 72.603 kg Alert oriented No anxiety Intermittent generalized spasm Intermittent tachycardia on telemetry Polyuria and clear urine Intake & Output: Intake & Output 07/06/20 07/06/20 07/06/20 05:59 13:59 21:59 Intake Total 500 50 460 Output Total 525 625 Balance -25 50 -165 Weight 72.62 kg 72.603 kg Intake: Nourishment/Supplement quantity 100 (ml) IV 50 Rocephin 2 gm In Dextrose 5% in 50 Water 50 ml @ 100 mls/hr IV Q24H [facility] Rx#:[id number] Oral 500 360 Output: Urine Catheter Amount 375 625 Stool 150 Other: Meal Dinner Lunch Percent of Meal Consumed 75% 50% Feeding Ability Assist with Tray Set Up Independent Nourishment/Supplement name ensure Urine Appearance Clear Clear Uretheral (Newman) Clear Clear Clear Urine Color Dark Yellow Bright Yellow Uretheral (Newman) Dark Yellow Bright Yellow Bright Yellow Urine Odor Normal Stool Size Moderate Small Stool Color Green Brown Stool Consistency Loose Loose # Bowel Movements 1 # of times incontinent of 1 Bowels OBJ DATA Labs CBC & Chem 7: 07/06/20 04:43 07/06/20 04:43 Labs: Abnormal Lab Results 07/06/20 07/06/20 07/05/20 04:43 04:43 05:00 RBC 3.50 L Hgb 11.6 L Hct 33.4 L MCH Plt Count 463 H Pender % (Auto) 14.3 H Pender # (Auto) 1.01 H Carbon Dioxide Calcium 8.5 L GGT 197 H 148 H AST 39 H ALT 60 H 56 H Alkaline Phosphatase 154 H 135 H Total Creatine Kinase 07/05/20 07/04/20 07/04/20 04:58 05:15 05:15 RBC 3.07 L Hgb 10.5 L Hct 29.4 L MCH 34.2 H Plt Count Pender % (Auto) 13.4 H Pender # (Auto) 1.02 H Carbon Dioxide 21 L Calcium 8.5 L GGT 153 H AST ALT 71 H Alkaline Phosphatase 143 H Total Creatine Kinase 399 H 07/04/20 05:15 RBC 3.10 L Hgb 10.4 L Hct 30.3 L MCH Plt Count Pender % (Auto) Pender # (Auto) Carbon Dioxide Calcium GGT AST ALT Alkaline Phosphatase Total Creatine Kinase Meds: Medications Acetaminophen (Tylenol) 650 mg PO Q4-6HP PRN; Protocol PRN Reason: Per Pain Protocol/Fever > 101 Last Admin: 07/06/20 08:24 Dose: 650 mg Documented by: Albuterol/Ipratropium (Duoneb) 3 ml NEB Q4HP PRN PRN Reason: Shortness Of Breath Last Admin: 07/06/20 17:44 Dose: 3 ml Documented by: Baclofen (Lioresal) 20 mg PO QID FRANSICO Last Admin: 07/06/20 20:36 Dose: 20 mg Documented by: Bisacodyl (Dulcolax) 10 mg ND Q2-3DAYS PRN PRN Reason: Constipation Carisoprodol (Soma) 350 mg PO TIDP PRN PRN Reason: Muscle Spasm Last Admin: 07/05/20 06:18 Dose: 350 mg Documented by: Diazepam (Valium) 5 mg PO DAILY [facility] Diazepam (Valium) 10 mg PO HS [facility] Last Admin: 07/06/20 20:37 Dose: 10 mg Documented by: Docusate Sodium (Colace) 100 mg PO BID [facility] Last Admin: 07/06/20 20:38 Dose: Not Given Documented by: Gabapentin (Neurontin) 900 mg PO TID [facility] Last Admin: 07/06/20 20:36 Dose: 900 mg Documented by: Heparin Sodium (Porcine) (Heparin) 5,000 unit SQ Q12 [facility] Last Admin: 07/06/20 20:36 Dose: 5,000 unit Documented by: Heparin Sodium (Porcine) (Heparin 10 Units/Ml Flush) 2 ml IV Q12 [facility] Last Admin: 07/06/20 20:37 Dose: 2 ml Documented by: Acetaminophen (Ofirmev) 650 mg in 65 mls @ 130 mls/hr IV Q6HP PRN; Protocol PRN Reason: Per Pain Protocol/Fever > 101 Magnesium Sulfate (Magnesium Sulfate) 2 gm in 50 mls @ 50 mls/hr IV UD PRN PRN Reason: MG = or < 1.7 Potassium Chloride 40 meq/ (Dextrose) 520 mls @ 130 mls/hr IV UD PRN PRN Reason: K+ = or < 3.5 Ceftriaxone Sodium 2 gm/ (Dextrose) 50 mls @ 100 mls/hr IV Q24H [facility]; Protocol Stop: 07/07/20 10:59 Last Infusion: 07/06/20 09:34 Dose: Infused Documented by: Iron Carb/Multivit/Batch Or Continuous Still Operator/Folic Acid (Multivitamin W/Minerals) 1 tab PO DAILY [facility] Last Admin: 07/06/20 08:24 Dose: 1 tab Documented by: Levalbuterol HCl (Xopenex) 0.63 mg INH QDAY [facility] Last Admin: 07/06/20 08:43 Dose: 0.63 mg Documented by: Lorazepam (Ativan) 2 mg IV Q4-6HP PRN PRN Reason: Spasms Melatonin (Melatonin 3mg Tablet) 3 mg PO HSP PRN PRN Reason: Insomnia Methocarbamol (Robaxin) 750 mg PO Q6 [facility] Last Admin: 07/06/20 17:18 Dose: 750 mg Documented by: Montelukast Sodium (Singular) 10 mg PO DAILY [facility] Last Admin: 07/06/20 08:24 Dose: 10 mg Documented by: Ondansetron HCl (Zofran Odt) 4 mg SL Q4-6HP PRN; Protocol PRN Reason: Nausea And Vomiting Last Admin: 07/06/20 17:17 Dose: 4 mg Documented by: Ondansetron HCl (Zofran) 4 mg IV Q6HP PRN PRN Reason: Nausea And Vomiting Oxycodone HCl (Roxicodone) 10 mg PO Q8HP PRN PRN Reason: Pain Last Admin: 07/06/20 02:03 Dose: 10 mg Documented by: Polyethylene Glycol (Miralax) 17 gm PO DAILYP PRN PRN Reason: Constipation Potassium Chloride (Klor-Con) 40 meq PO DAILYP PRN PRN Reason: K+ < 3.5 Last Admin: 07/05/20 18:38 Dose: 40 meq Documented by: Potassium/Phosphorus/Sodium (Neutra Phos) 2 packet PO DAILY PRN PRN Reason: PHOS <2.5 Fluticasone/Salmeterol (Advair 250-50 Diskus) 1 puff INH BID [facility] Last Admin: 07/06/20 20:38 Dose: 1 puff Documented by: Senna/Docusate Sodium (Senna Plus Tablet) 1 tab PO HS [facility] Last Admin: 07/06/20 20:38 Dose: Not Given Documented by: Sodium Chloride (Saline Flush) 10 ml IV Q8 [facility] Last Admin: 07/06/20 20:40 Dose: 10 ml Documented by: Sodium Chloride (Saline Flush) 10 ml IV UD PRN PRN Reason: FLUSH Last Admin: 07/05/20 05:46 Dose: 10 ml Documented by: Sodium Chloride (Saline Flush) 10 ml IV Q12 [facility] Last Admin: 07/06/20 09:05 Dose: 10 ml Documented by: Tizanidine HCl (Zanaflex) 3 mg PO TID [facility] Last Admin: 07/06/20 20:37 Dose: 3 mg Documented by: Venlafaxine HCl (Effexor Xr) 225 mg PO DAILY [facility] Last Admin: 07/06/20 08:23 Dose: 225 mg Documented by: A/P Narrative A/P Narrative: * Left lower lobe pneumonia -clinical resolution noted on antibiotic coverage. DC Rocephin in 24 hours * Acute exacerbation of asthma clinically resolved, continue bronchodilators as needed * Recurrent neuromuscular spasms requiring extensive antispasmodics. On scheduled gabapentin/venlafaxine/tizanidine/methocarbamol/baclofen/diazepam along with adjunctive carisoprodol. Case discussed with neurologist at [place] Dr. Madeline Ospina, recommend gradual up titration of tizanidine/benzodiazepine as above with close monitoring for respiratory depression from excessive sedation. Also recommended outpatient evaluation for baclofen pump. Patient would benefit from directed therapies/neuro rehab, case management coordinating transfer to [facility] * Sepsis with endorgan dysfunction secondary to pneumonia. Clinically resolved. White count normalized. Down to 8000 from 17 * history of chronic pain on oxycodone * acute otitis media-clinically resolved * History of paraparesis following traumatic spinal injury. Continue therapies as tolerated * Anxiety disorder on venlafaxine * Prophylaxis Heparin Plan * Continue antibiotics * Continue antispasmodics as above, await neuro rehab placement * Bronchodilators * outpatient pain clinic referral for baclofen pump evaluation Time Spent With Patient Time: Total time spent is greater than 50% in coordination of care (as documented) at patient's floor/unit and/or counseling patient:
[2020-07-07] MEDS: METHOCARBAMOL 750 MG TABLET PO SCH ×4 (00:35→17:23)
[2020-07-07] MEDS: 0.9 % SODIUM CHLORIDE 10 ML SYRINGE IV SCH ×5 (05:21→21:19)
[2020-07-07] MEDS: LORazepam 2 MG/ML VIAL IV PRN ×3 (05:21→20:01)
[2020-07-07 08:03] LABS: Basophils # (Auto) 0.04 K/mcL (0.00-0.20); Basophils % (Auto) 0.6 % (0.0-2.0); Eosinophils # (Auto) 0.27 K/mcL (0.00-0.70); Eosinophils % (Auto) 4.1 % (0.0-7.0); Hematocrit 35.8 % (36.0-48.0); Hemoglobin 12.8 g/dL (12.0-15.0); Lymphocytes % (Auto) 24.3 % (15.0-49.0); Mean Cell Volume 95.5 fL (80.0-100.0); Mean Corpuscular HGB Conc 35.8 g/dL (31.0-36.0); Mean Platelet Volume 9.3 fL (7.4-10.4); Monocytes # (Auto) 0.96 K/mcL (0.10-0.90); Monocytes % (Auto) 14.6 % (1.0-12.0); Neutrophils % (Auto) 56.4 % (38.0-78.0); Platelet Count 458 K/mcL (140-440); RBC 3.75 M/mcL (4.00-5.20); Red Cell Distribution Width 14.5 % (11.5-14.5); WBC 6.6 K/mcL (4.5-11.0)
[2020-07-07 08:29] LABS: ALT/SGPT 54 U/L (<40); AST/SGOT 37 U/L (<32); Albumin/Globulin Ratio 1.1 (1.0-2.3); Alkaline Phosphatase 158 U/L (39-117); Bilirubin,Direct < 0.2 mg/dL (<0.3); Bilirubin,Total 0.2 mg/dL (0.1-1.0); Blood Urea Nitrogen 8 mg/dL (6-20); Calcium 9.3 mg/dL (8.6-10.4); Carbon Dioxide 25 mmol/L (22-30); Chloride 99 mmol/L (96-108); Globulin 3.7 gm/dL (2.2-3.7); Glomerular Filtration Rate 114; Glucose 87 mg/dL (70-105); Lactate Dehydrogenase 211 U/L (135-225); Phosphorous 4.1 mg/dL (2.5-4.5); Triglycerides 116 mg/dL (<150); Uric Acid 5.1 mg/dL (2.5-8.0)
[2020-07-07] MEDS: tiZANidine 4 MG TABLET PO SCH ×3 (08:51→21:18)
[2020-07-07] MEDS: HEPARIN 5,000 UNIT/ML VIAL SQ SCH ×2 (08:51→21:18)
[2020-07-07] MEDS: VENLAFAXINE 75 MG CAP.XL.24H PO SCH (08:52)
[2020-07-07] MEDS: GABAPENTIN 300 MG CAPSULE PO SCH ×3 (08:53→21:18)
[2020-07-07] MEDS: MULTIVIT,THER IRON,CA,FA & MIN 1 TABLET PO SCH (08:54)
[2020-07-07] MEDS: BACLOFEN 10 MG TABLET PO SCH ×4 (08:54→21:17)
[2020-07-07] MEDS: MONTELUKAST 10 MG TABLET PO SCH (08:54)
[2020-07-07] MEDS: cefTRIAXone 2 GM in DEXTROSE 5% IN WATER 50 ML IV SCH (08:56)
[2020-07-07] MEDS: FLUTICASONE/SALMETEROL 250/50 INHALER #14 INH SCH ×2 (08:56→21:17)
[2020-07-07] MEDS ORDERED: DIAZEPAM 5 MG TABLET PO SCH (09:00)
[2020-07-07] MEDS: DIAZEPAM 5 MG TABLET PO SCH ×2 (09:26→15:56)
[2020-07-07] MEDS: DOCUSATE SODIUM 100 MG CAPSULE PO SCH ×2 (09:28→21:19)
[2020-07-07] MEDS: LEVALBUTEROL 0.63 MG/3 ML AMPUL.NEB INH SCH (09:40)
--- NOTE | 2020-07-07 10:53 | Internal Med Progress Note ---
SUBJECTIVE Subjective Patient information: Note initiated : 07/07/20 at 10:46 am Service Date, if different from initiated Date: [] Patient: Kiya Smith a 35 y/o F admitted on 07/01/20 for congestion and cough. Chief Complaint: [] Interval history: History of present illness: Ms. Smith is a 35 year old F With a history of prior spinal surgery/paraplegia and wheelchair dependent who presents to the ER with 3 days onset of worsening weakness/myalgias/cough/fever headache and loss of appetite. Symptoms are progressed with increasing shortness of breath along with right ear pain. She is endorses to sick contact with URI symptoms. With progressive symptoms she presents to the ER with initial work-up was consistent with bilateral pneumonia suspicious for Covid. White count 70,000. Patient was started on antibiotic coverage/bronchodilators and breathing treatments. Elevated ALT precludes use of remdesivir. Hospital service was consulted. At the time of evaluation patient is very anxious/frequent spells of coughing. She endorses history as above. Denies diarrhea, dysuria, abdominal pain. Her symptoms has been relieved with Tylenol. She has known paraplegia and is wheelchair dependent and has been taking baclofen/oxycodone without help 07/02-patient doing well. No overnight events. No concerns per staff. No fever chills nausea vomiting. White count downtrending. No overnight fever chills. Persistent cough and shortness of breath. Currently on room air. Tachycardia improved. ABG improving 07/03-patient clinically improving with antibiotics. Shortness breath improved. Now on room air. Improved cough. White count 16.7. Patient experiencing frequent neuromuscular spasm generalized with tonic posturing/spontaneous dislocation of shoulder requiring multiple doses of Robaxin/baclofen/lorazepam/IV magnesium to no effect. Patient responded well to dantrolene. No indication of drug-induced dyskinesis/neuroleptic malignant syndrome. Patient started on every 6 hours dantrolene along with cyclobenzaprine/methocarbamol and lorazepam. 07/04-pneumonia clinically resolved. Now on room air. White count 8000. However persistent dystonic reaction/muscle spasm requiring carisoprodol/baclofen/gabapentin Ativan. In addition patient started on benzo atropine/methocarbamol and cyclobenzaprine. Intermittent pain clinic consulted however patient would require outpatient follow-up for evaluation and authorization/preapproval for pump placement. Will discuss with neurology for possible options. If patient clinically improves will be discharged 24 hours. 07/05-improved muscle spasm on Zanaflex/baclofen/Valium along with as needed carisoprodol. Gabapentin dose increased to 900 3 times daily. White count normalized. Interval resolution of pneumonia on imaging. Case management to coordinate transfer to [facility]/outpatient rehab for significant spasm related to prior spinal trauma. Also will need outpatient follow-up with pain clinic for baclofen pump placement. 07/06-patient tolerating benzodiazepine/Zanaflex with improving generalized spasm intensity and frequency. Uptitrate Zanaflex/Valium to effect. DC antibiotics in 24 hours. Anticipate transfer to neuro rehab. Case management coordinating. Gradual clinical improvement noted. Newman is draining clear urine 07/07-much improved generalized spasm with up titration of Valium/Zanaflex along with continued home medications. DC antibiotics today. No fever chills nausea vomiting. Continue therapies. Possible SNF placement Constitutional Vitals: Vital Signs Temp Pulse Resp BP Pulse Ox 98.3 F 99 H 16 128/92 99 07/07/20 08:00 07/07/20 08:00 07/07/20 10:04 07/07/20 10:04 07/07/20 10:04 Period Temp Pulse Resp BP Sys/Pena Pulse Ox Last 24 Hr 97.5 F-99.2 F 82-111 16-22 105-139/60-97 94-100 Intake and Output 07/06/20 07/07/20 07/07/20 21:59 05:59 13:59 Intake Total 460 240 600 Output Total 625 700 Balance -165 -460 600 Weight 72.603 kg Alert oriented but fatigued Minimal anxiety Intermittently tachycardic during exertion and spasmodic episodes Newman draining clear urine Intake & Output: Intake & Output 07/06/20 07/07/20 07/07/20 21:59 05:59 13:59 Intake Total 460 240 600 Output Total 625 700 Balance -165 -460 600 Weight 72.603 kg Intake: Nourishment/Supplement quantity 100 (ml) Oral 360 240 600 Output: Urine Catheter Amount 625 700 Other: Meal Lunch Breakfast Percent of Meal Consumed 50% 75% Feeding Ability Independent Independent Nourishment/Supplement name ensure Urine Appearance Clear Clear Uretheral (Newman) Clear Clear Clear Urine Color Bright Yellow Bright Yellow Uretheral (Newman) Bright Yellow Bright Yellow Bright Yellow Urine Odor Normal Normal Uretheral (Newman) Normal Normal Stool Size Small Large Stool Color Brown Brown Stool Consistency Loose Soft Loose # Bowel Movements 1 1 OBJ DATA Labs CBC & Chem 7: 07/07/20 07:04 07/07/20 07:04 Labs: Abnormal Lab Results 07/07/20 07/07/20 07/06/20 07:04 07:04 04:43 RBC 3.75 L Hgb Hct 35.8 L MCH 34.1 H Plt Count 458 H Geary % (Auto) 14.6 H Geary # (Auto) 0.96 H Calcium GGT 206 H 197 H AST 37 H 39 H ALT 54 H 60 H Alkaline Phosphatase 158 H 154 H Total Creatine Kinase 07/06/20 07/05/20 07/05/20 04:43 05:00 04:58 RBC 3.50 L 3.07 L Hgb 11.6 L 10.5 L Hct 33.4 L 29.4 L MCH 34.2 H Plt Count 463 H Geary % (Auto) 14.3 H 13.4 H Geary # (Auto) 1.01 H 1.02 H Calcium 8.5 L GGT 148 H AST ALT 56 H Alkaline Phosphatase 135 H Total Creatine Kinase 07/04/20 05:15 RBC Hgb Hct MCH Plt Count Geary % (Auto) Geary # (Auto) Calcium GGT AST ALT Alkaline Phosphatase Total Creatine Kinase 399 H Meds: Medications Acetaminophen (Tylenol) 650 mg PO Q4-6HP PRN; Protocol PRN Reason: Per Pain Protocol/Fever > 101 Last Admin: 07/06/20 08:24 Dose: 650 mg Documented by: Albuterol/Ipratropium (Duoneb) 3 ml NEB Q4HP PRN PRN Reason: Shortness Of Breath Last Admin: 07/06/20 17:44 Dose: 3 ml Documented by: Baclofen (Lioresal) 20 mg PO QID FRANSICO Last Admin: 07/07/20 08:54 Dose: 20 mg Documented by: Bisacodyl (Dulcolax) [address] Q2-3DAYS PRN PRN Reason: Constipation Carisoprodol (Soma) 350 mg PO TIDP PRN PRN Reason: Muscle Spasm Last Admin: 07/05/20 06:18 Dose: 350 mg Documented by: Diazepam (Valium) 10 mg PO HS [facility] Last Admin: 07/06/20 20:37 Dose: 10 mg Documented by: Diazepam (Valium) 5 mg PO BID@0800,1600 [facility] Last Admin: 07/07/20 09:26 Dose: 5 mg Documented by: Docusate Sodium (Colace) 100 mg PO BID [facility] Last Admin: 07/07/20 09:28 Dose: Not Given Documented by: Gabapentin (Neurontin) 900 mg PO TID [facility] Last Admin: 07/07/20 08:53 Dose: 900 mg Documented by: Heparin Sodium (Porcine) (Heparin) 5,000 unit SQ Q12 [facility] Last Admin: 07/07/20 08:51 Dose: 5,000 unit Documented by: Heparin Sodium (Porcine) (Heparin 10 Units/Ml Flush) 2 ml IV Q12 [facility] Last Admin: 07/07/20 08:55 Dose: 2 ml Documented by: Acetaminophen (Ofirmev) 650 mg in 65 mls @ 130 mls/hr IV Q6HP PRN; Protocol PRN Reason: Per Pain Protocol/Fever > 101 Magnesium Sulfate (Magnesium Sulfate) 2 gm in 50 mls @ 50 mls/hr IV UD PRN PRN Reason: MG = or < 1.7 Potassium Chloride 40 meq/ (Dextrose) 520 mls @ 130 mls/hr IV UD PRN PRN Reason: K+ = or < 3.5 Ceftriaxone Sodium 2 gm/ (Dextrose) 50 mls @ 100 mls/hr IV Q24H [facility]; Protocol Stop: 07/07/20 10:59 Last Admin: 07/07/20 08:56 Dose: 100 mls/hr Documented by: Iron Carb/Multivit/[place]/Folic Acid (Multivitamin W/Minerals) 1 tab PO DAILY [facility] Last Admin: 07/07/20 08:54 Dose: 1 tab Documented by: Levalbuterol HCl (Xopenex) 0.63 mg INH QDAY [facility] Last Admin: 07/07/20 09:40 Dose: 0.63 mg Documented by: Lorazepam (Ativan) 2 mg IV Q4-6HP PRN PRN Reason: Spasms Last Admin: 07/07/20 05:21 Dose: 2 mg Documented by: Melatonin (Melatonin 3mg Tablet) 3 mg PO HSP PRN PRN Reason: Insomnia Methocarbamol (Robaxin) 750 mg PO Q6 [facility] Last Admin: 07/07/20 05:21 Dose: 750 mg Documented by: Montelukast Sodium (Singular) 10 mg PO DAILY [facility] Last Admin: 07/07/20 08:54 Dose: 10 mg Documented by: Ondansetron HCl (Zofran Odt) 4 mg SL Q4-6HP PRN; Protocol PRN Reason: Nausea And Vomiting Last Admin: 07/06/20 17:17 Dose: 4 mg Documented by: Ondansetron HCl (Zofran) 4 mg IV Q6HP PRN PRN Reason: Nausea And Vomiting Oxycodone HCl (Roxicodone) 10 mg PO Q8HP PRN PRN Reason: Pain Last Admin: 07/06/20 02:03 Dose: 10 mg Documented by: Polyethylene Glycol (Miralax) 17 gm PO DAILYP PRN PRN Reason: Constipation Potassium Chloride (Klor-Con) 40 meq PO DAILYP PRN PRN Reason: K+ < 3.5 Last Admin: 07/05/20 18:38 Dose: 40 meq Documented by: Potassium/Phosphorus/Sodium (Neutra Phos) 2 packet PO DAILY PRN PRN Reason: PHOS <2.5 Fluticasone/Salmeterol (Advair 250-50 Diskus) 1 puff INH BID [facility] Last Admin: 07/07/20 08:56 Dose: 1 puff Documented by: Senna/Docusate Sodium (Senna Plus Tablet) 1 tab PO HS [facility] Last Admin: 07/06/20 20:38 Dose: Not Given Documented by: Sodium Chloride (Saline Flush) 10 ml IV Q8 [facility] Last Admin: 07/07/20 05:21 Dose: 10 ml Documented by: Sodium Chloride (Saline Flush) 10 ml IV UD PRN PRN Reason: FLUSH Last Admin: 07/05/20 05:46 Dose: 10 ml Documented by: Sodium Chloride (Saline Flush) 10 ml IV Q12 [facility] Last Admin: 07/07/20 09:28 Dose: 10 ml Documented by: Tizanidine HCl (Zanaflex) 3 mg PO TID [facility] Last Admin: 07/07/20 08:51 Dose: 3 mg Documented by: Venlafaxine HCl (Effexor Xr) 225 mg PO DAILY [facility] Last Admin: 07/07/20 08:52 Dose: 225 mg Documented by: A/P Narrative A/P Narrative: * Recurrent and intractable neuromuscular spasms secondary to prior spinal cord injury. Continuing scheduled gabape ntin/venlafaxine/tizanidine/methocarbamol/baclofen/diazepam along with adjunctive carisoprodol. Case discussed with neurologist at [place] Dr. Madeline Ospina, on gradual up titration of tizanidine/benzodiazepine per new recommendations. Neurology further recommended outpatient evaluation at pain clinic for baclofen pump. Patient would benefit from directed therapies/neuro rehab, case management coordinating transfer to [facility] * Left lower lobe pneumonia -clinical and radiological resolution noted. Off antibiotics * Acute exacerbation of asthma clinically resolved, on bronchodilators * Sepsis with endorgan dysfunction secondary to pneumonia. Clinically resolved * history of chronic pain on oxycodone * acute otitis media-clinically resolved * History of paraparesis following traumatic spinal injury. * Anxiety disorder on venlafaxine * Prophylaxis Heparin Plan * DC antibiotics/Newman's catheter * Continue uptitrating benzodiazepine/Zanaflex * As needed bronchodilators * outpatient pain clinic referral for baclofen pump evaluation * In light of intractable spasm with difficult to control despite multiple muscle relaxant/hypnotics patient cannot be discharged home would definitely from directed therapies/neuro rehab at [facility]. Case management to coordinate transfer to [facility] Time Spent With Patient Time: Total time spent is greater than 50% in coordination of care (as documented) at patient's floor/unit and/or counseling patient:
[2020-07-07] MEDS: oxyCODONE HCL 5 MG TABLET PO PRN (11:28)
[2020-07-07] MEDS ORDERED: 0.9 % SODIUM CHLORIDE 1,000 ML IV ONE (12:41)
[2020-07-07] MEDS ORDERED: cloNIDine TTS 1 1 PATCH PATCH TD ONE (13:00)
[2020-07-07] MEDS: 0.9 % SODIUM CHLORIDE 1,000 ML IV SCH (14:20)
[2020-07-07] MEDS: ONDANSETRON 4 MG ODT TABLET SL PRN (17:09)
[2020-07-07] MEDS: SENNOSIDES/DOCUSATE SODIUM 1 TAB TABLET PO SCH (21:18)
[2020-07-07] MEDS: DIAZEPAM 10 MG TABLET PO SCH (21:18)
[2020-07-08] MEDS: METHOCARBAMOL 750 MG TABLET PO SCH ×5 (00:26→23:33)
[2020-07-08] MEDS: 0.9 % SODIUM CHLORIDE 1,000 ML IV SCH ×3 (00:26→21:00)
[2020-07-08] MEDS: 0.9 % SODIUM CHLORIDE 10 ML SYRINGE IV SCH ×5 (05:10→20:15)
[2020-07-08 07:22] LABS: Basophils # (Auto) 0.02 K/mcL (0.00-0.20); Basophils % (Auto) 0.4 % (0.0-2.0); Eosinophils # (Auto) 0.33 K/mcL (0.00-0.70); Eosinophils % (Auto) 6.2 % (0.0-7.0); Hematocrit 31.3 % (36.0-48.0); Hemoglobin 11.3 g/dL (12.0-15.0); Lymphocytes # (Auto) 1.85 K/mcL (1.50-4.80); Lymphocytes % (Auto) 34.5 % (15.0-49.0); Mean Cell Volume 96.6 fL (80.0-100.0); Mean Corpuscular HGB Conc 36.1 g/dL (31.0-36.0); Mean Platelet Volume 9.4 fL (7.4-10.4); Monocytes # (Auto) 0.75 K/mcL (0.10-0.90); Neutrophils % (Auto) 44.9 % (38.0-78.0); Platelet Count 373 K/mcL (140-440); RBC 3.24 M/mcL (4.00-5.20); Red Cell Distribution Width 14.4 % (11.5-14.5); WBC 5.4 K/mcL (4.5-11.0)
[2020-07-08] MEDS: DIAZEPAM 5 MG TABLET PO SCH (07:29)
[2020-07-08] MEDS: GABAPENTIN 300 MG CAPSULE PO SCH ×3 (09:03→20:13)
[2020-07-08] MEDS: VENLAFAXINE 75 MG CAP.XL.24H PO SCH (09:04)
[2020-07-08] MEDS: BACLOFEN 10 MG TABLET PO SCH ×4 (09:04→20:13)
[2020-07-08] MEDS: LEVALBUTEROL 0.63 MG/3 ML AMPUL.NEB INH SCH (09:04)
[2020-07-08] MEDS: tiZANidine 4 MG TABLET PO SCH ×3 (09:04→20:14)
[2020-07-08] MEDS: HEPARIN 5,000 UNIT/ML VIAL SQ SCH ×2 (09:05→20:14)
[2020-07-08] MEDS: DOCUSATE SODIUM 100 MG CAPSULE PO SCH ×2 (09:05→20:14)
[2020-07-08] MEDS: MULTIVIT,THER IRON,CA,FA & MIN 1 TABLET PO SCH (09:05)
[2020-07-08] MEDS: MONTELUKAST 10 MG TABLET PO SCH (09:06)
[2020-07-08] MEDS: FLUTICASONE/SALMETEROL 250/50 INHALER #14 INH SCH ×2 (09:24→20:13)
[2020-07-08] MEDS: LORazepam 2 MG/ML VIAL IV PRN ×2 (09:50→16:46)
[2020-07-08] MEDS ORDERED: DIAZEPAM 5 MG TABLET PO ONE (10:27)
[2020-07-08] MEDS ORDERED: guaiFENesin/CODEINE 10 ML UDC PO PRN (10:28)
--- NOTE | 2020-07-08 10:55 | Internal Med Progress Note ---
SUBJECTIVE Subjective Patient information: Note initiated : 07/08/20 at 10:48 am Service Date, if different from initiated Date: [] Patient: Kiya Smith a 35 y/o F admitted on 07/01/20 for congestion and cough. Chief Complaint: [] Interval history: History of present illness: Ms. Smith is a 35 year old F With a history of prior spinal surgery/paraplegia and wheelchair dependent who presents to the ER with 3 days onset of worsening weakness/myalgias/cough/fever headache and loss of appetite. Symptoms are progressed with increasing shortness of breath along with right ear pain. She is endorses to sick contact with URI symptoms. With progressive symptoms she presents to the ER with initial work-up was consistent with bilateral pneumonia suspicious for Covid. White count 70,000. Patient was started on antibiotic coverage/bronchodilators and breathing treatments. Elevated ALT precludes use of remdesivir. Hospital service was consulted. At the time of evaluation patient is very anxious/frequent spells of coughing. She endorses history as above. Denies diarrhea, dysuria, abdominal pain. Her symptoms has been relieved with Tylenol. She has known paraplegia and is wheelchair dependent and has been taking baclofen/oxycodone without help 07/02-patient doing well. No overnight events. No concerns per staff. No fever chills nausea vomiting. White count downtrending. No overnight fever chills. Persistent cough and shortness of breath. Currently on room air. Tachycardia improved. ABG improving 07/03-patient clinically improving with antibiotics. Shortness breath improved. Now on room air. Improved cough. White count 16.7. Patient experiencing frequent neuromuscular spasm generalized with tonic posturing/spontaneous dislocation of shoulder requiring multiple doses of Robaxin/baclofen/lorazepam/IV magnesium to no effect. Patient responded well to dantrolene. No indication of drug-induced dyskinesis/neuroleptic malignant syndrome. Patient started on every 6 hours dantrolene along with cyclobenzaprine/methocarbamol and lorazepam. 07/04-pneumonia clinically resolved. Now on room air. White count 8000. However persistent dystonic reaction/muscle spasm requiring carisoprodol/baclofen/gabapentin Ativan. In addition patient started on benzo atropine/methocarbamol and cyclobenzaprine. Intermittent pain clinic consulted however patient would require outpatient follow-up for evaluation and authorization/preapproval for pump placement. Will discuss with neurology for possible options. If patient clinically improves will be discharged 24 hours. 07/05-improved muscle spasm on Zanaflex/baclofen/Valium along with as needed carisoprodol. Gabapentin dose increased to 900 3 times daily. White count normalized. Interval resolution of pneumonia on imaging. Case management to coordinate transfer to [facility]/outpatient rehab for significant spasm related to prior spinal trauma. Also will need outpatient follow-up with pain clinic for baclofen pump placement. 07/06-patient tolerating benzodiazepine/Zanaflex with improving generalized spasm intensity and frequency. Uptitrate Zanaflex/Valium to effect. DC antibiotics in 24 hours. Anticipate transfer to neuro rehab. Case management coordinating. Gradual clinical improvement noted. Newman is draining clear urine 07/07-much improved generalized spasm with up titration of Valium/Zanaflex along with continued home medications. DC antibiotics today. No fever chills nausea vomiting. Continue therapies. Possible SNF placement 07/08-improving intermittent spasm now limited to 2 episodes a day. Uptitrate Valium to 10 AM/5 evening and 10 at bedtime, continue Zanaflex 3 mg 3 times daily in addition to existing home medications, stable labs and hemodynamics. Tachycardia improving. Constitutional Vitals: Vital Signs Temp Pulse Resp BP Pulse Ox 97.2 F 87 16 132/94 98 07/08/20 10:00 07/08/20 10:45 07/08/20 09:14 07/08/20 10:00 07/08/20 10:45 Period Temp Pulse Resp BP Sys/Pena Pulse Ox Last 24 Hr 97 F-98.7 F 82-133 16-18 104-133/71-114 94-100 Intake and Output 07/07/20 07/08/20 07/08/20 21:59 05:59 13:59 Intake Total 1020 1000 240 Output Total 550 850 450 Balance 470 150 -210 Weight 72.393 kg Alert oriented Anxious during spasmodic episode otherwise in good spirits Newman draining clear urine Nonlabored breathing Intake & Output: Intake & Output 07/07/20 07/08/20 07/08/20 21:59 05:59 13:59 Intake Total 1020 1000 240 Output Total 550 850 450 Balance 470 150 -210 Weight 72.393 kg Intake: Nourishment/Supplement quantity 300 (ml) IV 1000 Sodium Chloride 0.9% 1,000 ml @ 1000 100 mls/hr IV .Q10H [facility] Rx#: [id number] Oral 720 240 Output: Urine Catheter Amount 550 850 450 Other: Meal Breakfast Percent of Meal Consumed 50% Feeding Ability Independent Independent Nourishment/Supplement name Breeze Urine Appearance Clear Clear Clear Uretheral (Newman) Clear Clear Urine Color Bright Yellow Bright Yellow Pale Uretheral (Newman) Bright Yellow Bright Yellow Urine Odor Normal Strong Uretheral (Newman) Normal Normal Stool Size Large Stool Color Brown Stool Consistency Soft OBJ DATA Labs CBC & Chem 7: 07/08/20 05:02 07/07/20 07:04 Labs: Abnormal Lab Results 07/08/20 07/07/20 07/07/20 05:02 07:04 07:04 RBC 3.24 L 3.75 L Hgb 11.3 L Hct 31.3 L 35.8 L MCH 34.9 H 34.1 H MCHC 36.1 H Plt Count 458 H [place] % (Auto) 14.0 H 14.6 H [place] # (Auto) 0.96 H GGT 206 H AST 37 H ALT 54 H Alkaline Phosphatase 158 H 07/06/20 07/06/20 04:43 04:43 RBC 3.50 L Hgb 11.6 L Hct 33.4 L MCH MCHC Plt Count 463 H [place] % (Auto) 14.3 H [place] # (Auto) 1.01 H GGT 197 H AST 39 H ALT 60 H Alkaline Phosphatase 154 H Meds: Medications Acetaminophen (Tylenol) 650 mg PO Q4-6HP PRN; Protocol PRN Reason: Per Pain Protocol/Fever > 101 Last Admin: 07/06/20 08:24 Dose: 650 mg Documented by: Albuterol/Ipratropium (Duoneb) 3 ml NEB Q4HP PRN PRN Reason: Shortness Of Breath Last Admin: 07/06/20 17:44 Dose: 3 ml Documented by: Baclofen (Lioresal) 20 mg PO QID [facility] Last Admin: 07/08/20 09:04 Dose: 20 mg Documented by: Bisacodyl (Dulcolax) 10 mg GA Q2-3DAYS PRN PRN Reason: Constipation Carisoprodol (Soma) 350 mg PO TIDP PRN PRN Reason: Muscle Spasm Last Admin: 07/05/20 06:18 Dose: 350 mg Documented by: Diazepam (Valium) 10 mg PO HS [facility] Last Admin: 07/07/20 21:18 Dose: 10 mg Documented by: Diazepam (Valium) 5 mg PO BID@0800,1600 [facility] Last Admin: 07/08/20 07:29 Dose: 5 mg Documented by: Docusate Sodium (Colace) 100 mg PO BID [facility] Last Admin: 07/08/20 09:05 Dose: Not Given Documented by: Gabapentin (Neurontin) 900 mg PO TID [facility] Last Admin: 07/08/20 09:03 Dose: 900 mg Documented by: Guaifenesin/Codeine Phosphate (Robitussin Ac) 5 ml PO Q4HP PRN PRN Reason: Cough Heparin Sodium (Porcine) (Heparin) 5,000 unit SQ Q12 [facility] Last Admin: 07/08/20 09:05 Dose: 5,000 unit Documented by: Heparin Sodium (Porcine) (Heparin 10 Units/Ml Flush) 2 ml IV Q12 [facility] Last Admin: 07/08/20 09:06 Dose: 2 ml Documented by: Acetaminophen (Ofirmev) 650 mg in 65 mls @ 130 mls/hr IV Q6HP PRN; Protocol PRN Reason: Per Pain Protocol/Fever > 101 Magnesium Sulfate (Magnesium Sulfate) 2 gm in 50 mls @ 50 mls/hr IV UD PRN PRN Reason: MG = or < 1.7 Potassium Chloride 40 meq/ (Dextrose) 520 mls @ 130 mls/hr IV UD PRN PRN Reason: K+ = or < 3.5 Sodium Chloride (Sodium Chloride 0.9%) 1,000 mls @ 100 mls/hr IV .Q10H [facility] Last Admin: 07/08/20 00:26 Dose: 100 mls/hr Documented by: Iron Carb/Multivit/Crane/Folic Acid (Multivitamin W/Minerals) 1 tab PO DAILY [facility] Last Admin: 07/08/20 09:05 Dose: 1 tab Documented by: Levalbuterol HCl (Xopenex) 0.63 mg INH QDAY [facility] Last Admin: 07/08/20 09:04 Dose: 0.63 mg Documented by: Lorazepam (Ativan) 2 mg IV Q4-6HP PRN PRN Reason: Spasms Last Admin: 07/08/20 09:50 Dose: 2 mg Documented by: Melatonin (Melatonin 3mg Tablet) 3 mg PO HSP PRN PRN Reason: Insomnia Methocarbamol (Robaxin) 750 mg PO Q6 [facility] Last Admin: 07/08/20 05:10 Dose: 750 mg Documented by: Montelukast Sodium (Singular) 10 mg PO DAILY [facility] Last Admin: 07/08/20 09:06 Dose: 10 mg Documented by: Ondansetron HCl (Zofran Odt) 4 mg SL Q4-6HP PRN; Protocol PRN Reason: Nausea And Vomiting Last Admin: 07/07/20 17:09 Dose: 4 mg Documented by: Ondansetron HCl (Zofran) 4 mg IV Q6HP PRN PRN Reason: Nausea And Vomiting Oxycodone HCl (Roxicodone) 10 mg PO Q8HP PRN PRN Reason: Pain Last Admin: 07/07/20 11:28 Dose: 10 mg Documented by: Polyethylene Glycol (Miralax) 17 gm PO DAILYP PRN PRN Reason: Constipation Potassium Chloride (Klor-Con) 40 meq PO DAILYP PRN PRN Reason: K+ < 3.5 Last Admin: 07/05/20 18:38 Dose: 40 meq Documented by: Potassium/Phosphorus/Sodium (Neutra Phos) 2 packet PO DAILY PRN PRN Reason: PHOS <2.5 Fluticasone/Salmeterol (Advair 250-50 Diskus) 1 puff INH BID [facility] Last Admin: 07/08/20 09:24 Dose: 1 puff Documented by: Senna/Docusate Sodium (Senna Plus Tablet) 1 tab PO HS [facility] Last Admin: 07/07/20 21:18 Dose: Not Given Documented by: Sodium Chloride (Saline Flush) 10 ml IV Q8 [facility] Last Admin: 07/08/20 05:10 Dose: Not Given Documented by: Sodium Chloride (Saline Flush) 10 ml IV UD PRN PRN Reason: FLUSH Last Admin: 07/05/20 05:46 Dose: 10 ml Documented by: Sodium Chloride (Saline Flush) 10 ml IV Q12 [facility] Last Admin: 07/08/20 09:06 Dose: 10 ml Documented by: Tizanidine HCl (Zanaflex) 3 mg PO TID [facility] Last Admin: 07/08/20 09:04 Dose: 3 mg Documented by: Venlafaxine HCl (Effexor Xr) 225 mg PO DAILY [facility] Last Admin: 07/08/20 09:04 Dose: 225 mg Documented by: A/P Narrative A/P Narrative: * Recurrent and intractable neuromuscular spasms secondary to prior spinal cord injury(Jun 2017) with acute exacerbation. Clinically improving on scheduled gabapentin/venlafaxine/tizanidine/methocarbamol/baclofen/diazepam along with adjunctive carisoprodol. Case discussed with neurologist at [place] Dr. Madeline Ospina, on gradual up titration of tizanidine/benzodiazepine per neurology recommendations. Neurology further recommended outpatient evaluation at pain clinic for baclofen pump placement. Patient would benefit from directed therapies/neuro rehab, case management coordinating transfer to SNF. * Left lower lobe pneumonia -clinical and radiological resolution noted. Completed 7-day antibiotics * Acute exacerbation of asthma clinically resolved, continue as needed bronchodilators * Sepsis with endorgan dysfunction secondary to pneumonia. Clinically resolved * history of chronic pain on oxycodone * acute otitis media-clinically resolved * History of paraparesis following traumatic spinal injury Jun 2017. Wheelchair dependent and requiring assistance with ADL * Anxiety disorder on venlafaxine * Prophylaxis Heparin Plan * Continue uptitrating benzodiazepine/Zanaflex * outpatient pain clinic referral for baclofen pump evaluation * Pre-existing medical condition management home meds * SNF transfer coordination likely Friday * September EPI lambert Time Spent With Patient Time: Total time spent is greater than 50% in coordination of care (as documented) at patient's floor/unit and/or counseling patient:
[2020-07-08 11:01] LABS: ALT/SGPT 51 U/L (<40); AST/SGOT 38 U/L (<32); Albumin 3.3 gm/dL (3.2-5.2); Albumin/Globulin Ratio 1.1 (1.0-2.3); Alkaline Phosphatase 150 U/L (39-117); Bilirubin,Direct < 0.2 mg/dL (<0.3); Bilirubin,Total < 0.2 mg/dL (0.1-1.0); Blood Urea Nitrogen 6 mg/dL (6-20); Calcium 8.3 mg/dL (8.6-10.4); Carbon Dioxide 24 mmol/L (22-30); Chloride 105 mmol/L (96-108); Globulin 2.9 gm/dL (2.2-3.7); Glomerular Filtration Rate 120; Glucose 83 mg/dL (70-105); Lactate Dehydrogenase 171 U/L (135-225); Phosphorous 3.5 mg/dL (2.5-4.5); Triglycerides 101 mg/dL (<150); Uric Acid 4.4 mg/dL (2.5-8.0)
[2020-07-08] MEDS ORDERED: DIAZEPAM 5 MG TABLET PO SCH (16:00)
[2020-07-08] MEDS: CARISOPRODOL 350 MG TABLET PO PRN (16:15)
[2020-07-08] MEDS: SENNOSIDES/DOCUSATE SODIUM 1 TAB TABLET PO SCH (20:15)
[2020-07-08] MEDS: ACETAMINOPHEN 325 MG TABLET PO PRN (20:22)
[2020-07-08] MEDS ORDERED: DIAZEPAM 10 MG TABLET PO SCH (21:00)
[2020-07-08] MEDS: ONDANSETRON 4 MG ODT TABLET SL PRN (21:58)
[2020-07-09] MEDS: METHOCARBAMOL 750 MG TABLET PO SCH ×4 (05:42→23:39)
[2020-07-09] MEDS: 0.9 % SODIUM CHLORIDE 10 ML SYRINGE IV SCH ×5 (05:42→22:43)
[2020-07-09] MEDS: 0.9 % SODIUM CHLORIDE 1,000 ML IV SCH ×3 (06:03→18:27)
[2020-07-09] MEDS: LORazepam 2 MG/ML VIAL IV PRN ×2 (08:30→17:35)
--- NOTE | 2020-07-09 08:35 | Internal Med Progress Note ---
SUBJECTIVE Subjective Patient information: Note initiated : 07/09/20 at 8:33 am Service Date, if different from initiated Date: [] Patient: Kiya Smith a 35 y/o F admitted on 07/01/20 for congestion and cough. Chief Complaint: [] Interval history: History of present illness: Ms. Smith is a 35 year old F With a history of prior spinal surgery/paraplegia and wheelchair dependent who presents to the ER with 3 days onset of worsening weakness/myalgias/cough/fever headache and loss of appetite. Symptoms are progressed with increasing shortness of breath along with right ear pain. She is endorses to sick contact with URI symptoms. With progressive symptoms she presents to the ER with initial work-up was consistent with bilateral pneumonia suspicious for Covid. White count 70,000. Patient was started on antibiotic coverage/bronchodilators and breathing treatments. Elevated ALT precludes use of remdesivir. Hospital service was consulted. At the time of evaluation patient is very anxious/frequent spells of coughing. She endorses history as above. Denies diarrhea, dysuria, abdominal pain. Her symptoms has been relieved with Tylenol. She has known paraplegia and is wheelchair dependent and has been taking baclofen/oxycodone without help 07/02-patient doing well. No overnight events. No concerns per staff. No fever chills nausea vomiting. White count downtrending. No overnight fever chills. Persistent cough and shortness of breath. Currently on room air. Tachycardia improved. ABG improving 07/03-patient clinically improving with antibiotics. Shortness breath improved. Now on room air. Improved cough. White count 16.7. Patient experiencing frequent neuromuscular spasm generalized with tonic posturing/spontaneous dislocation of shoulder requiring multiple doses of Robaxin/baclofen/lorazepam/IV magnesium to no effect. Patient responded well to dantrolene. No indication of drug-induced dyskinesis/neuroleptic malignant syndrome. Patient started on every 6 hours dantrolene along with cyclobenzaprine/methocarbamol and lorazepam. 07/04-pneumonia clinically resolved. Now on room air. White count 8000. However persistent dystonic reaction/muscle spasm requiring carisoprodol/baclofen/gabapentin Ativan. In addition patient started on benzo atropine/methocarbamol and cyclobenzaprine. Intermittent pain clinic consulted however patient would require outpatient follow-up for evaluation and authorization/preapproval for pump placement. Will discuss with neurology for possible options. If patient clinically improves will be discharged 24 hours. 07/05-improved muscle spasm on Zanaflex/baclofen/Valium along with as needed carisoprodol. Gabapentin dose increased to 900 3 times daily. White count n ormalized. Interval resolution of pneumonia on imaging. Case management to coordinate transfer to [facility]/outpatient rehab for significant spasm related to prior spinal trauma. Also will need outpatient follow-up with pain clinic for baclofen pump placement. 07/06-patient tolerating benzodiazepine/Zanaflex with improving generalized spasm intensity and frequency. Uptitrate Zanaflex/Valium to effect. DC antibiotics in 24 hours. Anticipate transfer to neuro rehab. Case management coordinating. Gradual clinical improvement noted. Newman is draining clear urine 07/07-much improved generalized spasm with up titration of Valium/Zanaflex along with continued home medications. DC antibiotics today. No fever chills nausea vomiting. Continue therapies. Possible SNF placement 07/08-improving intermittent spasm now limited to 2 episodes a day. Uptitrate Valium to 10 AM/5 evening and 10 at bedtime, continue Zanaflex 3 mg 3 times daily in addition to existing home medications, stable labs and hemodynamics. Tachycardia improving. 07/09-patient symptomatically improving with no overnight neuromuscular spasm. Currently on Valium 10 mg 3 times daily/Zanaflex 3 mg 3 times daily in addition to home medications. Stable labs hemodynamics. Anticipate discharge to SNF versus home with home health. Case management coordinating. Constitutional Vitals: Vital Signs Temp Pulse Resp BP Pulse Ox 98.7 F 72 20 106/73 99 07/09/20 08:00 07/09/20 08:00 07/09/20 08:00 07/09/20 08:00 07/09/20 08:00 Period Temp Pulse Resp BP Sys/Pena Pulse Ox Last 24 Hr 97.2 F-98.7 F 71-115 16-22 101-138/71-94 95-100 Intake and Output 07/08/20 07/09/20 07/09/20 21:59 05:59 13:59 Intake Total 5587 666 9818 Output Total 700 1100 Balance 300 -860 1000 Weight 70.987 kg Intake & Output: Intake & Output 07/08/20 07/09/20 07/09/20 21:59 05:59 13:59 Intake Total 2774 451 2504 Output Total 700 1100 Balance 300 -860 1000 Weight 70.987 kg Intake: IV 1000 1000 Sodium Chloride 0.9% 1,000 ml @ 1000 1000 100 mls/hr IV .Q10H [facility] Rx#: [id number] Oral 240 Output: Urine Catheter Amount 1100 Void Amount 700 Other: Urine Appearance Clear Clear Uretheral (Newman) Clear Clear Urine Color Bright Yellow Bright Yellow Uretheral (Newman) Bright Yellow Bright Yellow Urine Odor Strong Normal Uretheral (Newman) Normal Normal OBJ DATA Labs CBC & Chem 7: 07/08/20 05:02 07/08/20 05:02 Labs: Abnormal Lab Results 07/08/20 07/08/20 07/07/20 05:02 05:02 07:04 RBC 3.24 L Hgb 11.3 L Hct 31.3 L MCH 34.9 H MCHC 36.1 H Plt Count [place] % (Auto) 14.0 H [place] # (Auto) Calcium 8.3 L GGT 205 H 206 H AST 38 H 37 H ALT 51 H 54 H Alkaline Phosphatase 150 H 158 H 07/07/20 07:04 RBC 3.75 L Hgb Hct 35.8 L MCH 34.1 H MCHC Plt Count 458 H [place] % (Auto) 14.6 H [place] # (Auto) 0.96 H Calcium GGT AST ALT Alkaline Phosphatase Meds: Medications Acetaminophen (Tylenol) 650 mg PO Q4-6HP PRN; Protocol PRN Reason: Per Pain Protocol/Fever > 101 Last Admin: 07/08/20 20:22 Dose: 650 mg Documented by: Albuterol/Ipratropium (Duoneb) 3 ml NEB Q4HP PRN PRN Reason: Shortness Of Breath Last Admin: 07/06/20 17:44 Dose: 3 ml Documented by: Baclofen (Lioresal) 20 mg PO QID [facility] Last Admin: 07/08/20 20:13 Dose: 20 mg Documented by: Bisacodyl (Dulcolax) 10 mg GA Q2-3DAYS PRN PRN Reason: Constipation Carisoprodol (Soma) 350 mg PO TIDP PRN PRN Reason: Muscle Spasm Last Admin: 07/08/20 16:15 Dose: 350 mg Documented by: Diazepam (Valium) 10 mg PO TID [facility] Docusate Sodium (Colace) 100 mg PO BID [facility] Last Admin: 07/08/20 20:14 Dose: Not Given Documented by: Gabapentin (Neurontin) 900 mg PO TID [facility] Last Admin: 07/08/20 20:13 Dose: 900 mg Documented by: Guaifenesin/Codeine Phosphate (Robitussin Ac) 5 ml PO Q4HP PRN PRN Reason: Cough Last Admin: 07/08/20 15:27 Dose: 5 ml Documented by: Heparin Sodium (Porcine) (Heparin) 5,000 unit SQ Q12 [facility] Last Admin: 07/08/20 20:14 Dose: 5,000 unit Documented by: Heparin Sodium (Porcine) (Heparin 10 Units/Ml Flush) 2 ml IV Q12 [facility] Last Admin: 07/08/20 20:13 Dose: 2 ml Documented by: Acetaminophen (Ofirmev) 650 mg in 65 mls @ 130 mls/hr IV Q6HP PRN; Protocol PRN Reason: Per Pain Protocol/Fever > 101 Magnesium Sulfate (Magnesium Sulfate) 2 gm in 50 mls @ 50 mls/hr IV UD PRN PRN Reason: MG = or < 1.7 Potassium Chloride 40 meq/ (Dextrose) 520 mls @ 130 mls/hr IV UD PRN PRN Reason: K+ = or < 3.5 Sodium Chloride (Sodium Chloride 0.9%) 1,000 mls @ 100 mls/hr IV .Q10H [facility] Last Admin: 07/09/20 07:07 Dose: 100 mls/hr Documented by: Iron Carb/Multivit/Supervisor Evaporator/Folic Acid (Multivitamin W/Minerals) 1 tab PO DAILY [facility] Last Admin: 07/08/20 09:05 Dose: 1 tab Documented by: Levalbuterol HCl (Xopenex) 0.63 mg INH QDAY [facility] Last Admin: 07/08/20 09:04 Dose: 0.63 mg Documented by: Lorazepam (Ativan) 2 mg IV Q4-6HP PRN PRN Reason: Spasms Last Admin: 07/08/20 16:46 Dose: 2 mg Documented by: Melatonin (Melatonin 3mg Tablet) 3 mg PO HSP PRN PRN Reason: Insomnia Methocarbamol (Robaxin) 750 mg PO Q6 [facility] Last Admin: 07/09/20 05:42 Dose: 750 mg Documented by: Montelukast Sodium (Singular) 10 mg PO DAILY [facility] Last Admin: 07/08/20 09:06 Dose: 10 mg Documented by: Ondansetron HCl (Zofran Odt) 4 mg SL Q4-6HP PRN; Protocol PRN Reason: Nausea And Vomiting Last Admin: 07/08/20 21:58 Dose: 4 mg Documented by: Ondansetron HCl (Zofran) 4 mg IV Q6HP PRN PRN Reason: Nausea And Vomiting Oxycodone HCl (Roxicodone) 10 mg PO Q8HP PRN PRN Reason: Pain Last Admin: 07/07/20 11:28 Dose: 10 mg Documented by: Polyethylene Glycol (Miralax) 17 gm PO DAILYP PRN PRN Reason: Constipation Potassium Chloride (Klor-Con) 40 meq PO DAILYP PRN PRN Reason: K+ < 3.5 Last Admin: 07/05/20 18:38 Dose: 40 meq Documented by: Potassium/Phosphorus/Sodium (Neutra Phos) 2 packet PO DAILY PRN PRN Reason: PHOS <2.5 Fluticasone/Salmeterol (Advair 250-50 Diskus) 1 puff INH BID [facility] Last Admin: 07/08/20 20:13 Dose: 1 puff Documented by: Senna/Docusate Sodium (Senna Plus Tablet) 1 tab PO HS [facility] Last Admin: 07/08/20 20:15 Dose: Not Given Documented by: Sodium Chloride (Saline Flush) 10 ml IV Q8 [facility] Last Admin: 07/09/20 05:42 Dose: Not Given Documented by: Sodium Chloride (Saline Flush) 10 ml IV UD PRN PRN Reason: FLUSH Last Admin: 07/05/20 05:46 Dose: 10 ml Documented by: Sodium Chloride (Saline Flush) 10 ml IV Q12 [facility] Last Admin: 07/08/20 20:15 Dose: Not Given Documented by: Tizanidine HCl (Zanaflex) 3 mg PO TID [facility] Last Admin: 07/08/20 20:14 Dose: 3 mg Documented by: Venlafaxine HCl (Effexor Xr) 225 mg PO DAILY [facility] Last Admin: 07/08/20 09:04 Dose: 225 mg Documented by: A/P Narrative A/P Narrative: * Recurrent and intractable neuromuscular spasms secondary to prior spinal cord injury(Jun 2017) with acute exacerbation. Much improved the last 24 hours on scheduled gabapentin/venlafaxine/tizanidine/methocarbamol/baclofen/diazepam along with adjunctive carisoprodol. Case discussed with neurologist at [place] Dr. Madeline Ospina, on gradual up titration of tizanidine/benzodiazepine per neurology recommendations. Neurology further recommended outpatient evaluation at pain clinic for baclofen pump placement. Patient would benefit from directed therapies/neuro rehab, case management coordinating transfer to SNF. * Left lower lobe pneumonia -clinical and radiological resolution noted. Completed 7-day antibiotics * Acute exacerbation of asthma clinically resolved, continue as needed bronchodilators * Sepsis with endorgan dysfunction secondary to pneumonia. Clinically resolved * history of chronic pain on oxycodone * acute otitis media-clinically resolved * History of paraparesis following traumatic spinal injury Jun 2017. Wheelchair dependent and requiring assistance with ADL * Anxiety disorder on venlafaxine * Prophylaxis Heparin Plan * outpatient pain clinic referral for baclofen pump evaluation * Pre-existing medical condition management home meds * Continue scheduled Valium 10 mg 3 times daily/Zanaflex 3 mg 3 times daily along with pre-existing medications until plain clinic evaluation for baclofen pump * SNF transfer coordination likely Friday, coordination per case management Time Spent With Patient Time: Total time spent is greater than 50% in coordination of care (as documented) at patient's floor/unit and/or counseling patient:
[2020-07-09] MEDS: MULTIVIT,THER IRON,CA,FA & MIN 1 TABLET PO SCH (09:18)
[2020-07-09] MEDS: LEVALBUTEROL 0.63 MG/3 ML AMPUL.NEB INH SCH (09:18)
[2020-07-09] MEDS: HEPARIN 5,000 UNIT/ML VIAL SQ SCH (09:18)
[2020-07-09] MEDS: MONTELUKAST 10 MG TABLET PO SCH (09:18)
[2020-07-09] MEDS: GABAPENTIN 300 MG CAPSULE PO SCH ×3 (09:19→20:34)
[2020-07-09] MEDS: tiZANidine 4 MG TABLET PO SCH ×3 (09:19→20:35)
[2020-07-09] MEDS: DIAZEPAM 10 MG TABLET PO SCH ×3 (09:19→20:34)
[2020-07-09] MEDS: VENLAFAXINE 75 MG CAP.XL.24H PO SCH (09:19)
[2020-07-09] MEDS: BACLOFEN 10 MG TABLET PO SCH ×4 (09:19→20:34)
[2020-07-09] MEDS: DOCUSATE SODIUM 100 MG CAPSULE PO SCH ×2 (09:20→20:36)
[2020-07-09] MEDS: ACETAMINOPHEN 325 MG TABLET PO PRN (09:21)
[2020-07-09] MEDS: FLUTICASONE/SALMETEROL 250/50 INHALER #14 INH SCH ×2 (12:07→20:35)
--- NOTE | 2020-07-09 13:21 | Internal Med Progress Note ---
SUBJECTIVE Subjective Patient information: Note initiated : 07/09/20 at 1:15 pm Service Date, if different from initiated Date: [] Patient: Kiya Smith a 35 y/o F admitted on 07/01/20 for congestion and cough. Chief Complaint: [] Interval history: History of present illness: Ms. Smith is a 35 year old F With a history of prior spinal surgery/paraplegia and wheelchair dependent who presents to the ER with 3 days onset of worsening weakness/myalgias/cough/fever headache and loss of appetite. Symptoms are progressed with increasing shortness of breath along with right ear pain. She is endorses to sick contact with URI symptoms. With progressive symptoms she presents to the ER with initial work-up was consistent with bilateral pneumonia suspicious for Covid. White count 70,000. Patient was started on antibiotic coverage/bronchodilators and breathing treatments. Elevated ALT precludes use of remdesivir. Hospital service was consulted. At the time of evaluation patient is very anxious/frequent spells of coughing. She endorses history as above. Denies diarrhea, dysuria, abdominal pain. Her symptoms has been relieved with Tylenol. She has known paraplegia and is wheelchair dependent and has been taking baclofen/oxycodone without help 07/02-patient doing well. No overnight events. No concerns per staff. No fever chills nausea vomiting. White count downtrending. No overnight fever chills. Persistent cough and shortness of breath. Currently on room air. Tachycardia improved. ABG improving 07/03-patient clinically improving with antibiotics. Shortness breath improved. Now on room air. Improved cough. White count 16.7. Patient experiencing frequent neuromuscular spasm generalized with tonic posturing/spontaneous dislocation of shoulder requiring multiple doses of Robaxin/baclofen/lorazepam/IV magnesium to no effect. Patient responded well to dantrolene. No indication of drug-induced dyskinesis/neuroleptic malignant syndrome. Patient started on every 6 hours dantrolene along with cyclobenzaprine/methocarbamol and lorazepam. 07/04-pneumonia clinically resolved. Now on room air. White count 8000. However persistent dystonic reaction/muscle spasm requiring carisoprodol/baclofen/gabapentin Ativan. In addition patient started on benzo atropine/methocarbamol and cyclobenzaprine. Intermittent pain clinic consulted however patient would require outpatient follow-up for evaluation and authorization/preapproval for pump placement. Will discuss with neurology for possible options. If patient clinically improves will be discharged 24 hours. 07/05-improved muscle spasm on Zanaflex/baclofen/Valium along with as needed carisoprodol. Gabapentin dose increased to 900 3 times daily. White count n ormalized. Interval resolution of pneumonia on imaging. Case management to coordinate transfer to [facility]/outpatient rehab for significant spasm related to prior spinal trauma. Also will need outpatient follow-up with pain clinic for baclofen pump placement. 07/06-patient tolerating benzodiazepine/Zanaflex with improving generalized spasm intensity and frequency. Uptitrate Zanaflex/Valium to effect. DC antibiotics in 24 hours. Anticipate transfer to neuro rehab. Case management coordinating. Gradual clinical improvement noted. Newman is draining clear urine 07/07-much improved generalized spasm with up titration of Valium/Zanaflex along with continued home medications. DC antibiotics today. No fever chills nausea vomiting. Continue therapies. Possible SNF placement 07/08-improving intermittent spasm now limited to 2 episodes a day. Uptitrate Valium to 10 AM/5 evening and 10 at bedtime, continue Zanaflex 3 mg 3 times daily in addition to existing home medications, stable labs and hemodynamics. Tachycardia improving. 07/09-patient symptomatically improving with no overnight neuromuscular spasm. Currently on Valium 10 mg 3 times daily/Zanaflex 3 mg 3 times daily in addition to home medications. Stable labs hemodynamics. Anticipate discharge to SNF versus home with home health. Case management coordinating. Constitutional Vitals: Vital Signs Temp Pulse Resp BP Pulse Ox 97.4 F 78 95 H 108/66 26 L 07/09/20 12:02 07/09/20 09:30 07/09/20 12:02 07/09/20 12:02 07/09/20 12:02 Period Temp Pulse Resp BP Sys/Pena Pulse Ox Last 24 Hr 97.2 F-98.7 F 71-93 16-95 97-138/66-92 26-100 Intake and Output 07/08/20 07/09/20 07/09/20 21:59 05:59 13:59 Intake Total 0836 112 8002 Output Total 700 1100 Balance 300 -860 1060 Weight 70.987 kg Intake & Output: Intake & Output 07/08/20 07/09/20 07/09/20 21:59 05:59 13:59 Intake Total 1354 369 2703 Output Total 700 1100 Balance 300 -860 1060 Weight 70.987 kg Intake: Nourishment/Supplement quantity 60 (ml) IV 1000 1000 Sodium Chloride 0.9% 1,000 ml @ 1000 1000 100 mls/hr IV .Q10H [facility] Rx#: [id number] Oral 240 Output: Urine Catheter Amount 1100 Void Amount 700 Other: Meal Breakfast Percent of Meal Consumed 0% Nourishment/Supplement name magic cup Urine Appearance Clear Clear Clear Uretheral (Newman) Clear Clear Clear Urine Color Bright Yellow Bright Yellow Uretheral (Newman) Bright Yellow Bright Yellow Bright Yellow Urine Odor Strong Normal Uretheral (Newman) Normal Normal Exam: General: Alert, Awake, No acute Distress Eyes/N/T: EOMI, Head/Neck: neck supple, CV: RRR, No murmurs, Pulm: Clear b/l, no wheezing/rhonchi/rales Abd: soft, nontender, +BS x4, Ext: no clubbing/cyanosis/edema Neuro: Alert, no focal deficits, moves all extremities, Skin: warm/dry OBJ DATA Labs CBC & Chem 7: 07/08/20 05:02 07/08/20 05:02 Labs: Abnormal Lab Results 07/08/20 07/08/20 07/07/20 05:02 05:02 07:04 RBC 3.24 L Hgb 11.3 L Hct 31.3 L MCH 34.9 H MCHC 36.1 H Plt Count [place] % (Auto) 14.0 H [place] # (Auto) Calcium 8.3 L GGT 205 H 206 H AST 38 H 37 H ALT 51 H 54 H Alkaline Phosphatase 150 H 158 H 07/07/20 07:04 RBC 3.75 L Hgb Hct 35.8 L MCH 34.1 H MCHC Plt Count 458 H [place] % (Auto) 14.6 H [place] # (Auto) 0.96 H Calcium GGT AST ALT Alkaline Phosphatase Meds: Medications Acetaminophen (Tylenol) 650 mg PO Q4-6HP PRN; Protocol PRN Reason: Per Pain Protocol/Fever > 101 Last Admin: 07/09/20 09:21 Dose: 650 mg Documented by: Albuterol/Ipratropium (Duoneb) 3 ml NEB Q4HP PRN PRN Reason: Shortness Of Breath Last Admin: 07/06/20 17:44 Dose: 3 ml Documented by: Baclofen (Lioresal) 20 mg PO QID [facility] Last Admin: 07/09/20 09:19 Dose: 20 mg Documented by: Bisacodyl (Dulcolax) 10 mg [place] Q2-3DAYS PRN PRN Reason: Constipation Carisoprodol (Soma) 350 mg PO TIDP PRN PRN Reason: Muscle Spasm Last Admin: 07/08/20 16:15 Dose: 350 mg Documented by: Diazepam (Valium) 10 mg PO TID [facility] Last Admin: 07/09/20 09:19 Dose: 10 mg Documented by: Docusate Sodium (Colace) 100 mg PO BID [facility] Last Admin: 07/09/20 09:20 Dose: Not Given Documented by: Gabapentin (Neurontin) 900 mg PO TID [facility] Last Admin: 07/09/20 09:19 Dose: 900 mg Documented by: Guaifenesin/Codeine Phosphate (Robitussin Ac) 5 ml PO Q4HP PRN PRN Reason: Cough Last Admin: 07/08/20 15:27 Dose: 5 ml Documented by: Heparin Sodium (Porcine) (Heparin) 5,000 unit SQ Q12 [facility] Last Admin: 07/09/20 09:18 Dose: 5,000 unit Documented by: Heparin Sodium (Porcine) (Heparin 10 Units/Ml Flush) 2 ml IV Q12 [facility] Last Admin: 07/09/20 09:18 Dose: 2 ml Documented by: Acetaminophen (Ofirmev) 650 mg in 65 mls @ 130 mls/hr IV Q6HP PRN; Protocol PRN Reason: Per Pain Protocol/Fever > 101 Magnesium Sulfate (Magnesium Sulfate) 2 gm in 50 mls @ 50 mls/hr IV UD PRN PRN Reason: MG = or < 1.7 Potassium Chloride 40 meq/ (Dextrose) 520 mls @ 130 mls/hr IV UD PRN PRN Reason: K+ = or < 3.5 Sodium Chloride (Sodium Chloride 0.9%) 1,000 mls @ 100 mls/hr IV .Q10H [facility] Last Admin: 07/09/20 07:07 Dose: 100 mls/hr Documented by: Iron Carb/Multivit/Boundary/Folic Acid (Multivitamin W/Minerals) 1 tab PO DAILY [facility] Last Admin: 07/09/20 09:18 Dose: 1 tab Documented by: Levalbuterol HCl (Xopenex) 0.63 mg INH QDAY [facility] Last Admin: 07/09/20 09:18 Dose: 0.63 mg Documented by: Lorazepam (Ativan) 2 mg IV Q4-6HP PRN PRN Reason: Spasms Last Admin: 07/09/20 08:30 Dose: 2 mg Documented by: Melatonin (Melatonin 3mg Tablet) 3 mg PO HSP PRN PRN Reason: Insomnia Methocarbamol (Robaxin) 750 mg PO Q6 [facility] Last Admin: 07/09/20 11:50 Dose: 750 mg Documented by: Montelukast Sodium (Singular) 10 mg PO DAILY [facility] Last Admin: 07/09/20 09:18 Dose: 10 mg Documented by: Ondansetron HCl (Zofran Odt) 4 mg SL Q4-6HP PRN; Protocol PRN Reason: Nausea And Vomiting Last Admin: 07/08/20 21:58 Dose: 4 mg Documented by: Ondansetron HCl (Zofran) 4 mg IV Q6HP PRN PRN Reason: Nausea And Vomiting Oxycodone HCl (Roxicodone) 10 mg PO Q8HP PRN PRN Reason: Pain Last Admin: 07/07/20 11:28 Dose: 10 mg Documented by: Polyethylene Glycol (Miralax) 17 gm PO DAILYP PRN PRN Reason: Constipation Potassium Chloride (Klor-Con) 40 meq PO DAILYP PRN PRN Reason: K+ < 3.5 Last Admin: 07/05/20 18:38 Dose: 40 meq Documented by: Potassium/Phosphorus/Sodium (Neutra Phos) 2 packet PO DAILY PRN PRN Reason: PHOS <2.5 Fluticasone/Salmeterol (Advair 250-50 Diskus) 1 puff INH BID [facility] Last Admin: 07/09/20 12:07 Dose: 1 puff Documented by: Senna/Docusate Sodium (Senna Plus Tablet) 1 tab PO HS [facility] Last Admin: 07/08/20 20:15 Dose: Not Given Documented by: Sodium Chloride (Saline Flush) 10 ml IV Q8 [facility] Last Admin: 07/09/20 05:42 Dose: Not Given Documented by: Sodium Chloride (Saline Flush) 10 ml IV UD PRN PRN Reason: FLUSH Last Admin: 07/05/20 05:46 Dose: 10 ml Documented by: Sodium Chloride (Saline Flush) 10 ml IV Q12 [facility] Last Admin: 07/09/20 10:07 Dose: Not Given Documented by: Tizanidine HCl (Zanaflex) 3 mg PO TID [facility] Last Admin: 07/09/20 09:19 Dose: 3 mg Documented by: Venlafaxine HCl (Effexor Xr) 225 mg PO DAILY [facility] Last Admin: 07/09/20 09:19 Dose: 225 mg Documented by: A/P Narrative A/P Narrative: A: -Recurrent & intractable neuromuscular spasms: 2/2 prior spinal cord injury(Jun 2017) w/acute exacerbation -Much improved the last 24 hours on scheduled gabapentin/venlafaxine/tizanidine/methocarbamol/baclofen/diazepam along with adjunctive carisoprodol. -Case discussed with [facility] neurologist Dr. Madeline Ospina, on gradual up titration of tizanidine/benzodiazepine per neurology recommendations. Also recommended outpatient evaluation at pain clinic for baclofen pump placement. *LLL Pneumonia: clinical and radiological resolution noted. Completed 7-day antibiotics *Acute exacerbation of asthma clinically resolved, continue as needed bronchodilators *Sepsis with endorgan dysfunction secondary to pneumonia. Clinically resolved *history of chronic pain on oxycodone *acute otitis media-clinically resolved *History of paraparesis following traumatic spinal injury Jun 2017. Wheelchair dependent and requiring assistance with ADL *Anxiety disorder on venlafaxine Plan: -outpatient pain clinic referral for baclofen pump evaluation -Continue scheduled Valium 10 mg 3 times daily/Zanaflex 3 mg 3 times daily along with pre-existing medications until plain clinic evaluation for baclofen pump -case discussed with neurology, see primary assessment notes -SNF transfer coordination likely Friday, coordination per case management -ppx: lovenox Time Spent With Patient Time: Total time spent is greater than 50% in coordination of care (as documented) at patient's floor/unit and/or counseling patient:
--- NOTE | 2020-07-09 13:21 | Discharge Summary ---
Discharge Provider Provider Patient information: Note initiated : 07/09/20 at 1:21 pm Service Date, if different from initiated Date: [] Patient: Kiya Smith 35 y/o F admitted on 07/01/20 for congestion and cough. Chief Complaint: [] Date of admission: 07/01/20 19:44 Discharge date: 07/14/20 Consults: 07/01/20 Consult to Physician [CONS] Stat Comment: Consulting Provider: Sj Nunez Reason For Exam: Physician to Consult Discharge Meds Discharge Medications Home Medications methocarbamol 750 mg PO Q6HP PRN 03/15/19 [History Confirmed 07/04/20 Last Taken 07/01/20 13:00] montelukast 10 mg PO DAILY 03/15/19 [History Confirmed 07/01/20 Last Taken 07/01/20 08:00] venlafaxine 150 mg PO DAILY 03/15/19 [History Confirmed 07/04/20 Last Taken 07/01/20 08:00] fluticasone propion-salmeterol [Wixela Inhub] 1 inh INHALATION BID 07/01/20 [History Confirmed 07/01/20 Last Taken 07/01/20 09:00] baclofen 20 mg PO QID 07/04/20 [History Confirmed 07/04/20 Last Taken Unknown] docusate sodium [DOK] 100 mg PO BIDP PRN 07/04/20 [History Confirmed 07/04/20 Last Taken Unknown] gabapentin 900 mg PO TID 07/04/20 [History Confirmed 07/04/20 Last Taken Unknown] levalbuterol tartrate 1 - 2 puff INHALATION Q4HP PRN 07/04/20 [History Confirmed 07/04/20 Last Taken Unknown] venlafaxine 75 mg PO DAILY 07/04/20 [History Confirmed 07/04/20 Last Taken Unknown] diazepam 15 mg PO TID #40 tab 07/13/20 [Rx Last Taken Unknown] lidocaine 1 patch TOPICAL DAILY@1000 #7 ea 07/13/20 [Rx Last Taken Unknown] oxycodone-acetaminophen 1 tab PO Q6HP PRN #30 tab 07/13/20 [Rx Last Taken Unknown] tizanidine 4 mg PO TID #40 tab 07/13/20 [Rx Last Taken Unknown] COURSE Hospital Course Hospital course: History of present illness: Ms. Smith is a 35 year old F With a history of prior spinal surgery/paraplegia and wheelchair dependent who presents to the ER with 3 days onset of worsening weakness/myalgias/cough/fever headache and loss of appetite. Symptoms are progressed with increasing shortness of breath along with right ear pain. She is endorses to sick contact with URI symptoms. With progressive symptoms she presents to the ER with initial work-up was consistent with bilateral pneumonia suspicious for Covid. White count 70,000. Patient was started on antibiotic coverage/bronchodilators and breathing treatments. Elevated ALT precludes use of remdesivir. Hospital service was consulted. At the time of evaluation patient is very anxious/frequent spells of coughing. She endorses history as above. Denies diarrhea, dysuria, abdominal pain. Her symptoms has been relieved with Tylenol. She has known paraplegia and is wheelchair dependent and has been taking baclofen/oxycodone without help 07/02-patient doing well. No overnight events. No concerns per staff. No fever chills nausea vomiting. White count downtrending. No overnight fever chills. Persistent cough and shortness of breath. Currently on room air. Tachycardia improved. ABG improving 07/03-patient clinically improving with antibiotics. Shortness breath improved. Now on room air. Improved cough. White count 16.7. Patient experiencing frequent neuromuscular spasm generalized with tonic posturing/spontaneous dislocation of shoulder requiring multiple doses of Robaxin/baclofen/lorazepam/IV magnesium to no effect. Patient responded well to dantrolene. No indication of drug-induced dyskinesis/neuroleptic malignant syndrome. Patient started on every 6 hours dantrolene along with cyclobenzaprine/methocarbamol and lorazepam. 07/04-pneumonia clinically resolved. Now on room air. White count 8000. However persistent dystonic reaction/muscle spasm requiring carisoprodol/baclofen/gabapentin Ativan. In addition patient started on benzo atropine/methocarbamol and cyclobenzaprine. Intermittent pain clinic consulted however patient would require outpatient follow-up for evaluation and authorization/preapproval for pump placement. Will discuss with neurology for possible options. If patient clinically improves will be discharged 24 hours. 07/05-improved muscle spasm on Zanaflex/baclofen/Valium along with as needed carisoprodol. Gabapentin dose increased to 900 3 times daily. White count normalized. Interval resolution of pneumonia on imaging. Case management to coordinate transfer to [facility]/outpatient rehab for significant spasm related to prior spinal trauma. Also will need outpatient follow-up with pain clinic for baclofen pump placement. 07/06-patient tolerating benzodiazepine/Zanaflex with improving generalized spasm intensity and frequency. Uptitrate Zanaflex/Valium to effect. DC antibiotics in 24 hours. Anticipate transfer to neuro rehab. Case management coordinating. Gradual clinical improvement noted. Newman is draining clear urine 07/07-much improved generalized spasm with up titration of Valium/Zanaflex along with continued home medications. DC antibiotics today. No fever chills nausea vomiting. Continue therapies. Possible SNF placement 07/08-improving intermittent spasm now limited to 2 episodes a day. Uptitrate Valium to 10 AM/5 evening and 10 at bedtime, continue Zanaflex 3 mg 3 times daily in addition to existing home medications, stable labs and hemodynamics. Tachycardia improving. 07/09-patient symptomatically improving with no overnight neuromuscular spasm. Currently on Valium 10 mg 3 times daily/Zanaflex 3 mg 3 times daily in addition to home medications. Stable labs hemodynamics. Anticipate discharge to SNF versus home with home health. Case management coordinating. 07/10 Patient slept okay. No new complaints. No changes in regimen. Awaiting placement options Case management working on and awaiting authorization from insurance. *Pt was accepted to [facility]. However, after having a physician to physician discussion with Dr. Iqbal - he stated since patient was still requiring IV Ativan on occasion to break her severe Spasms, that they would not be able to accept the patient at this time. Because of this, I reached out to [facility] again for further direction in treatment. I continued my discussion with [facility] again the next day. Discussed case with Dr. Lopez at [place] regarding continued muscle spasms in light of escalating therapy (specifically diazepam and gabapentin). She recommended obtaining Brain, Cervical, & Thoracic MRI with/without contrast. Will discuss findings with her when results return. In speaking with the patient she last saw her hvac controls technician probably 6 months or so ago. No medication changes. The plans were for her to establish with a neurologist but she says that fell through the cracks. Patient states that her spasms have always been primarily lower and truncal. She did have upper body spasm (which start in her upper back and extend into her arms) that occurred about 6 months ago that she relates to running out of her Effexor. She states she really has not had any upper extremity spasms since then at home, until now in the hospital. She is fully awake during the muscle spasms. She has required IV Ativan during the severe episodes. No history of seizures and she did have an evaluation for seizures after the sp inal cord injury. 07/11 Sound like she had a spasm around 8:30 last night and was given IV Ativan. MRI done tonight and will discuss with neurologist. He otherwise slept fairly well last night. Cervical and thoracic MRI unremarkable but the brain MRI did show some lesions which the patient said she had some scattered lesions on MRI in 2018. Discussed case with [facility] neurologist Dr. Villeda who referred me to her colleague Dr. Ingram (PM&R). We discussed case in length and final recommendations is that we will increase her diazepam, will schedule Tylenol. Provide a lidocaine patch to low back for her chronic pain and increase as needed frequency of her oxycodone to try to keep up on her chronic back pain controlled as it as been a trigger at times. She was able to stand with physical therapy for the first time today since she has been in the hospital, she was able to take a sidestep. During physical therapy she started having her spasming which cut her PT short. Spasms last a bout 30 minutes. At home her muscle spasms last 15 to 20 minutes and she typically has several spasms every other day. Does state that when she does have the lower extremity spasming at home she does have shaking in her arms as well and has fallen out of her wheelchair before from the spasming. I spent some time talking with the patient about the conversation I had with Dr. Ingram. Our goal is to get her closer to baseline and to be able to avoid the IV Ativan to break her severe spasms, in order to get her to post falls rehab. 07/12 pt had a severe spasm while in the shower. Afterwards she slept well for 3- hours and then was awake d/t muscle discomfort. No pains or complaints this morning. Working with PT this morning and doing better. no diarrhea. Follow-up labs essentially unremarkable except for elevated LFTs. She did have LFTs outpatient 2018. They were elevated on admission suspected to be related to infection. They did show improvement but then worsened again. This led to and abdominal ultrasound and subsequent recommended MRI pending results. 07/13 Have been able to use oral Ativan instead of IV Ativan to abort severe spasms that happen several times a day. Last spasm was yesterday at 7:[address] Cruz for injection this morning for trial portion of baclofen pump preparation. MRI pending for LFT work-up. Patient slept okay and seems to be in good spirits this morning. 07/14 Doing relatively well. Received fluconazole for yeast infection this morning. A: -h/o T7-12 spinal cord injury (Jun 2017) w/acute exacerbation of recurrent/intractable neuromuscular spasms: -historically lower body spasms but extending to upper body recently -discussed w/[facility] neurologist Dr. Madeline Gardner > gradual up titration of tizanidine/benzodiazepine. Also recommended outpatient evaluation at pain clinic for baclofen pump placement. -rediscussed w/[facility] (07/10) Dr. Joon Lopez who recommended brain/cervical/thoracic mri -Brain MRI with multiple nonspecific lesions felt to be chronic ischemic, 2018 MRI with similar findings -Cervical/Thoracic MRI unremarkable -Discussed case (07/11) with pts' hvac controls technician in [place] Dr. Bueno -Discussed w/[facility] (07/11) who referred me to Dr. Soliz (PM[facility] @[facility]) for further recs *Chronic LBP: increased prn frequency of oxycodone, lidoderm *h/o paraparesis following traumatic spinal injury Jun 2017: -requires assistance with ADL's -essentially wheelchair bound but has shown some improvement w/PT prior to admission by ambulating short distances w/wheeled walker *Generalized weakness/deconditioning/debility: -doing better with PT, walked in room yesterday *Transaminitis: noted 2019 labs, elevated on admission but improved then mildly worsened, now stable -abd u/s with mild intrahepatic dilation -MRI report still pending *LLL Pneumonia: resolved, on room. completed 7-day antibiotics *Sepsis: 2 pneumonia. resolved *Acute exacerbation of asthma: resolved, continue as needed bronchodilators *acute otitis media: resolved *Anxiety disorder: on venlafaxine *Vaginal yeast infection: fluconazole given Plan: -on Valium to 15mg tid, Zanaflex to 4mg tid, cont home baclofen/gary/robaxin, cont prn soma. -cont lidoderm, tylenol, and increased prn frequency of home oxycodone for LBP -received trial injection (07/13) in preparation for baclofen pump -outpatient pain clinic referral for baclofen pump -PT/OT, increase PT frequency -f/u LFT's outpt, f/u with GI Discharge diagnosis: Recurrent acute on chronic intractable neuromuscular pain. Pneumonia asthma Secondary discharge diagnosis: Sepsis history of chronic pain acute otitis media history of paraparesis anxiety disorder Time Spent with Patient Time attestation: Total time spent providing and/or coordinating discharge services: Time spent: Greater than 30 minutes EXAM Constitutional Vitals: Temp Pulse Resp BP Pulse Ox 97.4 F 78 95 H 108/66 26 L 07/09/20 12:02 07/09/20 09:30 07/09/20 12:02 07/09/20 12:02 07/09/20 12:02 Discharge Plan Patient/Caregiver Discharge Instructions Activity: increase activity as tolerated Diet: Regular Diet Activity Restrictions/Additional Instructions: Referral to pain clinic for baclofen pump Follow-up with neurologist in 1 to 2 weeks. Prescriptions: New tizanidine 4 mg Tablet 4 mg PO TID Qty: 40 RF: 0 lidocaine 5 % Adhesive Patch,Medicated 1 patch topical DAILY@1000 Qty: 7 RF: 0 diazepam 10 mg Tablet 15 mg PO TID Qty: 40 RF: 0 Continued venlafaxine 150 MG capsule,extended release 24hr 150 mg PO DAILY RF: 0 methocarbamol 750 MG tablet 750 mg PO Q6HP PRN (Reason: Back Spasms) RF: 0 montelukast 10 MG tablet 10 mg PO DAILY RF: 0 fluticasone propion-salmeterol [Wixela Inhub] 250-50 mcg/dose Blister With Device 1 inh INHALATION BID RF: 0 docusate sodium [DOK] 100 mg capsule 100 mg PO BIDP PRN (Reason: Constipation) RF: 0 gabapentin 300 mg capsule 900 mg PO TID RF: 0 venlafaxine 75 mg capsule,extended release 24hr 75 mg PO DAILY RF: 0 baclofen 20 mg tablet 20 mg PO QID RF: 0 levalbuterol tartrate 45 mcg/actuation HFA aerosol inhaler 1 - 2 puff INHALATION Q4HP PRN (Reason: Wheezing) RF: 0 Changed oxycodone-acetaminophen 10-325 mg tablet 1 tab PO Q6HP PRN (Reason: pain) Qty: 30 RF: 0 Follow Up Plan Follow up with: Laura Preston [Other] Lyubov Bueno [Other] Michael Cruz MD [Physician] - Patient Disposition: Xfer SNF Prognosis: Fair Rehab Potential: Fair I certify that the patient requires SNF services: Yes Overall status at discharge: patient is progressing back to baseline Discharge Orders: Discharge Order (Routine); Ordered 07/14/20 Ordered By: Yazan Lizama
[2020-07-09] MEDS: oxyCODONE HCL 5 MG TABLET PO PRN (16:40)
[2020-07-09] MEDS: ONDANSETRON 4 MG ODT TABLET SL PRN (16:41)
[2020-07-09] MEDS: CARISOPRODOL 350 MG TABLET PO PRN ×2 (16:46→21:44)
[2020-07-09] MEDS: SENNOSIDES/DOCUSATE SODIUM 1 TAB TABLET PO SCH (20:36)
[2020-07-10] MEDS: oxyCODONE HCL 5 MG TABLET PO PRN ×2 (03:38→16:18)
[2020-07-10] MEDS: 0.9 % SODIUM CHLORIDE 1,000 ML IV SCH (03:42)
[2020-07-10] MEDS: CARISOPRODOL 350 MG TABLET PO PRN ×2 (03:47→12:10)
[2020-07-10] MEDS: LORazepam 2 MG/ML VIAL IV PRN ×3 (03:52→20:30)
[2020-07-10] MEDS: METHOCARBAMOL 750 MG TABLET PO SCH ×3 (06:47→17:48)
[2020-07-10] MEDS: 0.9 % SODIUM CHLORIDE 10 ML SYRINGE IV SCH ×5 (06:48→21:48)
--- NOTE | 2020-07-10 07:18 | Internal Med Progress Note ---
SUBJECTIVE Subjective Patient information: Note initiated : 07/10/20 at 7:14 am Service Date, if different from initiated Date: [] Patient: Kiya Smith a 35 y/o F admitted on 07/01/20 for congestion and cough. Chief Complaint: [] Interval history: History of present illness: Ms. Smith is a 35 year old F With a history of prior spinal surgery/paraplegia and wheelchair dependent who presents to the ER with 3 days onset of worsening weakness/myalgias/cough/fever headache and loss of appetite. Symptoms are progressed with increasing shortness of breath along with right ear pain. She is endorses to sick contact with URI symptoms. With progressive symptoms she presents to the ER with initial work-up was consistent with bilateral pneumonia suspicious for Covid. White count 70,000. Patient was started on antibiotic coverage/bronchodilators and breathing treatments. Elevated ALT precludes use of remdesivir. Hospital service was consulted. At the time of evaluation patient is very anxious/frequent spells of coughing. She endorses history as above. Denies diarrhea, dysuria, abdominal pain. Her symptoms has been relieved with Tylenol. She has known paraplegia and is wheelchair dependent and has been taking baclofen/oxycodone without help 07/02-patient doing well. No overnight events. No concerns per staff. No fever chills nausea vomiting. White count downtrending. No overnight fever chills. Persistent cough and shortness of breath. Currently on room air. Tachycardia improved. ABG improving 07/03-patient clinically improving with antibiotics. Shortness breath improved. Now on room air. Improved cough. White count 16.7. Patient experiencing frequent neuromuscular spasm generalized with tonic posturing/spontaneous dislocation of shoulder requiring multiple doses of Robaxin/baclofen/lorazepam/IV magnesium to no effect. Patient responded well to dantrolene. No indication of drug-induced dyskinesis/neuroleptic malignant syndrome. Patient started on every 6 hours dantrolene along with cyclobenzaprine/methocarbamol and lorazepam. 07/04-pneumonia clinically resolved. Now on room air. White count 8000. However persistent dystonic reaction/muscle spasm requiring carisoprodol/baclofen/gabapentin Ativan. In addition patient started on benzo atropine/methocarbamol and cyclobenzaprine. Intermittent pain clinic consulted however patient would require outpatient follow-up for evaluation and authorization/preapproval for pump placement. Will discuss with neurology for possible options. If patient clinically improves will be discharged 24 hours. 07/05-improved muscle spasm on Zanaflex/baclofen/Valium along with as needed carisoprodol. Gabapentin dose increased to 900 3 times daily. White count n ormalized. Interval resolution of pneumonia on imaging. Case management to coordinate transfer to [facility]/outpatient rehab for significant spasm related to prior spinal trauma. Also will need outpatient follow-up with pain clinic for baclofen pump placement. 07/06-patient tolerating benzodiazepine/Zanaflex with improving generalized spasm intensity and frequency. Uptitrate Zanaflex/Valium to effect. DC antibiotics in 24 hours. Anticipate transfer to neuro rehab. Case management coordinating. Gradual clinical improvement noted. Newman is draining clear urine 07/07-much improved generalized spasm with up titration of Valium/Zanaflex along with continued home medications. DC antibiotics today. No fever chills nausea vomiting. Continue therapies. Possible SNF placement 07/08-improving intermittent spasm now limited to 2 episodes a day. Uptitrate Valium to 10 AM/5 evening and 10 at bedtime, continue Zanaflex 3 mg 3 times daily in addition to existing home medications, stable labs and hemodynamics. Tachycardia improving. 07/09-patient symptomatically improving with no overnight neuromuscular spasm. Currently on Valium 10 mg 3 times daily/Zanaflex 3 mg 3 times daily in addition to home medications. Stable labs hemodynamics. Anticipate discharge to SNF versus home with home health. Case management coordinating. 07/10 Patient slept okay. No new complaints. No changes in regimen. Awaiting placement options Case management working on and awaiting authorization from insurance. Review of Systems: denies headache/fever/chills/nausea/vomiting/chest or abdominal pain/ cough/dyspnea/diarrhea. Otherwise see above. Constitutional Vitals: Vital Signs Temp Pulse Resp BP Pulse Ox 98.9 F 70 16 91/58 97 07/10/20 04:16 07/10/20 01:06 07/10/20 01:06 07/10/20 06:00 07/10/20 06:00 Period Temp Pulse Resp BP Sys/Pena Pulse Ox Last 24 Hr 96.8 F-98.9 F 70-85 16-95 91-130/58-102 26-100 Intake and Output 07/09/20 07/10/20 07/10/20 21:59 05:59 13:59 Intake Total 1180.5 1125 Output Total 1100 975 Balance 80.5 150 Weight 71.078 kg Intake & Output: Intake & Output 07/09/20 07/10/20 07/10/20 21:59 05:59 13:59 Intake Total 1180.5 1125 Output Total 1100 975 Balance 80.5 150 Weight 71.078 kg Intake: Nourishment/Supplement quantity 0.5 (ml) IV 1000 925 Sodium Chloride 0.9% 1,000 ml @ 1000 925 100 mls/hr IV .Q10H [facility] Rx#: [id number] Oral 180 200 Output: Urine Catheter Amount 1100 975 Other: Nourishment/Supplement name Majic Cup Urine Appearance Clear Clear Uretheral ([place]man) Clear Urine Color Bright Yellow Bright Yellow Uretheral ([place]man) Bright Yellow Urine Odor Normal Normal Uretheral ([place]man) Normal Exam: General: Alert, Awake, No acute Distress Eyes/N/T: EOMI, Head/Neck: neck supple, CV: RRR, No murmurs, Pulm: Clear b/l, no wheezing/rhonchi/rales Abd: soft, nontender, +BS x4, Ext: no clubbing/cyanosis/edema Neuro: Alert, moves all extremities, Skin: warm/dry OBJ DATA Labs CBC & Chem 7: 07/08/20 05:02 07/08/20 05:02 Labs: Abnormal Lab Results 07/08/20 07/08/20 07/07/20 05:02 05:02 07:04 RBC 3.24 L Hgb 11.3 L Hct 31.3 L MCH 34.9 H MCHC 36.[address] % (Auto) 14.0 H Lane # (Auto) Calcium 8.3 L GGT 205 H 206 H AST 38 H 37 H ALT 51 H 54 H Alkaline Phosphatase 150 H 158 H 07/07/20 07:04 RBC 3.75 L Hgb Hct 35.8 L MCH 34.1 H MCHC Plt Count [address] % (Auto) 14.6 H Lane # (Auto) 0.96 H Calcium GGT AST ALT Alkaline Phosphatase Meds: Medications Acetaminophen (Tylenol) 650 mg PO Q4-6HP PRN; Protocol PRN Reason: Per Pain Protocol/Fever > 101 Last Admin: 07/09/20 09:21 Dose: 650 mg Documented by: Albuterol/Ipratropium (Duoneb) 3 ml NEB Q4HP PRN PRN Reason: Shortness Of Breath Last Admin: 07/06/20 17:44 Dose: 3 ml Documented by: Baclofen (Lioresal) 20 mg PO QID [facility] Last Admin: 07/09/20 20:34 Dose: 20 mg Documented by: Bisacodyl (Dulcolax) 10 mg PA Q2-3DAYS PRN PRN Reason: Constipation Carisoprodol (Soma) 350 mg PO TIDP PRN PRN Reason: Muscle Spasm Last Admin: 07/10/20 03:47 Dose: 350 mg Documented by: Diazepam (Valium) 10 mg PO TID [facility] Last Admin: 07/09/20 20:34 Dose: 10 mg Documented by: Docusate Sodium (Colace) 100 mg PO BID [facility] Last Admin: 07/09/20 20:36 Dose: Not Given Documented by: Enoxaparin Sodium (Lovenox) 40 mg SQ DAILY [facility] Gabapentin (Neurontin) 900 mg PO TID [facility] Last Admin: 07/09/20 20:34 Dose: 900 mg Documented by: Guaifenesin/Codeine Phosphate (Robitussin Ac) 5 ml PO Q4HP PRN PRN Reason: Cough Last Admin: 07/08/20 15:27 Dose: 5 ml Documented by: Heparin Sodium (Porcine) (Heparin 10 Units/Ml Flush) 2 ml IV Q12 [facility] Last Admin: 07/09/20 20:33 Dose: 2 ml Documented by: Acetaminophen (Ofirmev) 650 mg in 65 mls @ 130 mls/hr IV Q6HP PRN; Protocol PRN Reason: Per Pain Protocol/Fever > 101 Magnesium Sulfate (Magnesium Sulfate) 2 gm in 50 mls @ 50 mls/hr IV UD PRN PRN Reason: MG = or < 1.7 Potassium Chloride 40 meq/ (Dextrose) 520 mls @ 130 mls/hr IV UD PRN PRN Reason: K+ = or < 3.5 Sodium Chloride (Sodium Chloride 0.9%) 1,000 mls @ 100 mls/hr IV .Q10H [facility] Last Admin: 07/10/20 03:42 Dose: 100 mls/hr Documented by: Iron Carb/Multivit/Dolores/Folic Acid (Multivitamin W/Minerals) 1 tab PO DAILY [facility] Last Admin: 07/09/20 09:18 Dose: 1 tab Documented by: Levalbuterol HCl (Xopenex) 0.63 mg INH QDAY [facility] Last Admin: 07/09/20 09:18 Dose: 0.63 mg Documented by: Lorazepam (Ativan) 2 mg IV Q4-6HP PRN PRN Reason: Spasms Last Admin: 07/10/20 03:52 Dose: 2 mg Documented by: Melatonin (Melatonin 3mg Tablet) 3 mg PO HSP PRN PRN Reason: Insomnia Last Admin: 07/09/20 21:51 Dose: 3 mg Documented by: Methocarbamol (Robaxin) 750 mg PO Q6 [facility] Last Admin: 07/10/20 06:47 Dose: 750 mg Documented by: Montelukast Sodium (Singular) 10 mg PO DAILY [facility] Last Admin: 07/09/20 09:18 Dose: 10 mg Documented by: Ondansetron HCl (Zofran Odt) 4 mg SL Q4-6HP PRN; Protocol PRN Reason: Nausea And Vomiting Last Admin: 07/09/20 16:41 Dose: 4 mg Documented by: Ondansetron HCl (Zofran) 4 mg IV Q6HP PRN PRN Reason: Nausea And Vomiting Oxycodone HCl (Roxicodone) 10 mg PO Q8HP PRN PRN Reason: Pain Last Admin: 07/10/20 03:38 Dose: 10 mg Documented by: Polyethylene Glycol (Miralax) 17 gm PO DAILYP PRN PRN Reason: Constipation Potassium Chloride (Klor-Con) 40 meq PO DAILYP PRN PRN Reason: K+ < 3.5 Last Admin: 07/05/20 18:38 Dose: 40 meq Documented by: Potassium/Phosphorus/Sodium (Neutra Phos) 2 packet PO DAILY PRN PRN Reason: PHOS <2.5 Fluticasone/Salmeterol (Advair 250-50 Diskus) 1 puff INH BID [facility] Last Admin: 07/09/20 20:35 Dose: 1 puff Documented by: Senna/Docusate Sodium (Senna Plus Tablet) 1 tab PO HS [facility] Last Admin: 07/09/20 20:36 Dose: Not Given Documented by: Sodium Chloride (Saline Flush) 10 ml IV Q8 [facility] Last Admin: 07/10/20 06:48 Dose: 10 ml Documented by: Sodium Chloride (Saline Flush) 10 ml IV UD PRN PRN Reason: FLUSH Last Admin: 07/05/20 05:46 Dose: 10 ml Documented by: Sodium Chloride (Saline Flush) 10 ml IV Q12 [facility] Last Admin: 07/09/20 20:36 Dose: Not Given Documented by: Tizanidine HCl (Zanaflex) 3 mg PO TID [facility] Last Admin: 07/09/20 20:35 Dose: 3 mg Documented by: Venlafaxine HCl (Effexor Xr) 225 mg PO DAILY [facility] Last Admin: 07/09/20 09:19 Dose: 225 mg Documented by: A/P Narrative A/P Narrative: A: -Recurrent & intractable neuromuscular spasms: 2/2 prior spinal cord injury(Jun 2017) w/acute exacerbation -Much improved the last 24 hours on scheduled gabapen tin/venlafaxine/tizanidine/methocarbamol/baclofen/diazepam along with adjunctive carisoprodol. -Case discussed with [place] neurologist Dr. Madeline Ospina, on gradual up titration of tizanidine/benzodiazepine per neurology recommendations. Also recommended outpatient evaluation at pain clinic for baclofen pump placement. *LLL Pneumonia: clinical and radiological resolution noted. Completed 7-day antibiotics *Acute exacerbation of asthma clinically resolved, continue as needed bronchodilators *Sepsis with endorgan dysfunction secondary to pneumonia. Clinically resolved *history of chronic pain on oxycodone *acute otitis media-clinically resolved *History of paraparesis following traumatic spinal injury Jun 2017. Wheelchair dependent and requiring assistance with ADL *Anxiety disorder on venlafaxine Plan: -outpatient pain clinic referral for baclofen pump evaluation -Continue scheduled Valium 10 mg 3 times daily/Zanaflex 3 mg 3 times daily along with pre-existing medications until plain clinic evaluation for baclofen pump -case discussed with neurology, see primary assessment notes -CM for likely SNF transfer -ppx: lovenox Time Spent With Patient Time: Total time spent is greater than 50% in coordination of care (as documented) at patient's floor/unit and/or counseling patient:
[2020-07-10] MEDS: ENOXAPARIN 40 MG/0.4 ML SYRINGE SQ SCH (09:18)
[2020-07-10] MEDS: VENLAFAXINE 75 MG CAP.XL.24H PO SCH (09:19)
[2020-07-10] MEDS: GABAPENTIN 300 MG CAPSULE PO SCH ×3 (09:19→21:46)
[2020-07-10] MEDS: DIAZEPAM 10 MG TABLET PO SCH ×3 (09:20→21:46)
[2020-07-10] MEDS: MULTIVIT,THER IRON,CA,FA & MIN 1 TABLET PO SCH (09:20)
[2020-07-10] MEDS: tiZANidine 4 MG TABLET PO SCH ×3 (09:20→21:52)
[2020-07-10] MEDS: DOCUSATE SODIUM 100 MG CAPSULE PO SCH ×2 (09:20→21:32)
[2020-07-10] MEDS: BACLOFEN 10 MG TABLET PO SCH ×4 (09:21→21:46)
[2020-07-10] MEDS: MONTELUKAST 10 MG TABLET PO SCH (09:21)
[2020-07-10] MEDS: FLUTICASONE/SALMETEROL 250/50 INHALER #14 INH SCH ×2 (09:22→21:47)
[2020-07-10] MEDS: LEVALBUTEROL 0.63 MG/3 ML AMPUL.NEB INH SCH (09:38)
[2020-07-10] MEDS: ACETAMINOPHEN 325 MG TABLET PO PRN ×2 (10:43→20:52)
[2020-07-10] MEDS ORDERED: diphenhydrAMINE 25 MG CAPSULE PO PRN (16:42)
[2020-07-10] MEDS ORDERED: LORazepam 2 MG/ML VIAL IV ONE (18:34)
[2020-07-10] MEDS ORDERED: LORazepam 2 MG/ML VIAL ONE (18:49)
[2020-07-10] MEDS: MELATONIN 3 MG TABLET PO SCH (21:46)
[2020-07-10] MEDS: SENNOSIDES/DOCUSATE SODIUM 1 TAB TABLET PO SCH (21:48)
[2020-07-11] MEDS: diphenhydrAMINE 25 MG CAPSULE PO PRN ×2 (00:01→23:07)
[2020-07-11] MEDS: METHOCARBAMOL 750 MG TABLET PO SCH ×5 (00:01→23:08)
--- NOTE | 2020-07-11 04:08 | Magnetic Resonance Report ---
CLINICAL INFORMATION: Spasticity COMPARISON: None. TECHNIQUE: Sagittal T2, sagittal T1 FLAIR, sagittal STIR and axial T2 images were acquired. FINDINGS: The cervical spine is anatomically aligned without marrow signal abnormality. The brainstem, cerebellum and cervical cord are normal in contour and caliber homogeneous signal. There is complete opacification of the sphenoid sinus compatible with sphenoid sinusitis. Soft tissues are normal. At C4-5, C5-6 and C6-7, there is very minimal annular bulging which slightly impinges the anterior thecal sac. The central canal lateral recess and IV foramen are normal width at each level. IMPRESSION: 1. Minimal annular bulging at C4-5, C5-6 and C6-7 which is almost certainly insignificant. The cervical spine is otherwise normal. 2. Severe sphenoid sinusitis. Interpreted and Authenticated by: Caden Mars 07/11/20
--- NOTE | 2020-07-11 04:34 | Magnetic Resonance Report ---
CLINICAL INFORMATION: Body spasm COMPARISON: None. TECHNIQUE: Sagittal T2, sagittal T1 FLAIR, sagittal STIR and axial T2 images were acquired. FINDINGS: The thoracic spine is normal in curvature and alignment and there are no marrow signal abnormalities. The thoracic cord is normal in contour and caliber and without focal abnormality. The discs are all well hydrated and show no evidence of extrusion or protrusion. The central canal, lateral recesses disease and IV foramina are all unremarkable. Increased signal is noted throughout the left internal jugular vein IMPRESSION: Normal thoracic spine. Increased signal is seen throughout the left internal jugular vein. While this likely merely represents slow flow, internal jugular vein thrombosis should be excluded. Suggest limited ultrasound of this region Interpreted and Authenticated by: Caden Mars 07/11/20
--- NOTE | 2020-07-11 04:40 | Magnetic Resonance Report ---
CLINICAL INFORMATION: Intermittent spasms. History of paraplegia COMPARISON: None. TECHNIQUE:Sagittal T1 FLAIR, axial T1 FLAIR, T2 FLAIR propeller, T2 propeller, gradient, diffusion, ADC and coronal T2 weighted images were acquired. FINDINGS: The ventricles, sulci, fissures and cisterns are normal and symmetric in size and configuration - no extra-axial fluid collection or masses appreciated. 4-5 high signal lesions are present in the posterior deep left frontal white matter which range between between 1 mm and 5 mm. Two punctate high signal foci in the deep right frontal parietal junction are both less than 2 mm. No restricted diffusion, edema or mass effect. Signal void in intracerebral arteries, extra-axial cranial nerves, pituitary and orbits are all normal. There is subtotal opacification of both maxillary, sphenoid, anterior ethmoid and frontal air cells with moderate mucosal thickening in the posterior ethmoid air cells. In addition, increased fluid present within the right mastoid air cells. There is increased signal within the intracranial left internal jugular vein IMPRESSION: 1. Cluster of 4-5 high signal lesions in the deep posterior left frontal white matter ranging between one and 5 mm. There are two punctate foci in the right parietal frontal junction both less than 2 mm. These are almost certainly foci of chronic ischemia. Most common cause would be migraine headache although multiple other small vessel pathologies can result in these findings such as vasculitis or collagen vascular disease or diabetic arteriosclerosis . 2. Pansinusitis. Moderate right mastoiditis. 3. Increased signal in the intracranial left internal jugular vein likely merely represent slow flow. Suggest ultrasound of the left cervical internal jugular vein to exclude thrombosis Interpreted and Authenticated by: Caden Mars 07/11/20
[2020-07-11] MEDS: 0.9 % SODIUM CHLORIDE 10 ML SYRINGE IV SCH ×5 (05:59→21:26)
--- NOTE | 2020-07-11 07:22 | Internal Med Progress Note ---
SUBJECTIVE Subjective Patient information: Note initiated : 07/11/20 at 7:18 am Service Date, if different from initiated Date: [] Patient: Kiya Smith a 35 y/o F admitted on 07/01/20 for congestion and cough. Chief Complaint: [] Interval history: History of present illness: Ms. Smith is a 35 year old F With a history of prior spinal surgery/paraplegia and wheelchair dependent who presents to the ER with 3 days onset of worsening weakness/myalgias/cough/fever headache and loss of appetite. Symptoms are progressed with increasing shortness of breath along with right ear pain. She is endorses to sick contact with URI symptoms. With progressive symptoms she presents to the ER with initial work-up was consistent with bilateral pneumonia suspicious for Covid. White count 70,000. Patient was started on antibiotic coverage/bronchodilators and breathing treatments. Elevated ALT precludes use of remdesivir. Hospital service was consulted. At the time of evaluation patient is very anxious/frequent spells of coughing. She endorses history as above. Denies diarrhea, dysuria, abdominal pain. Her symptoms has been relieved with Tylenol. She has known paraplegia and is wheelchair dependent and has been taking baclofen/oxycodone without help 07/02-patient doing well. No overnight events. No concerns per staff. No fever chills nausea vomiting. White count downtrending. No overnight fever chills. Persistent cough and shortness of breath. Currently on room air. Tachycardia improved. ABG improving 07/03-patient clinically improving with antibiotics. Shortness breath improved. Now on room air. Improved cough. White count 16.7. Patient experiencing frequent neuromuscular spasm generalized with tonic posturing/spontaneous dislocation of shoulder requiring multiple doses of Robaxin/baclofen/lorazepam/IV magnesium to no effect. Patient responded well to dantrolene. No indication of drug-induced dyskinesis/neuroleptic malignant syndrome. Patient started on every 6 hours dantrolene along with cyclobenzaprine/methocarbamol and lorazepam. 07/04-pneumonia clinically resolved. Now on room air. White count 8000. However persistent dystonic reaction/muscle spasm requiring carisoprodol/baclofen/gabapentin Ativan. In addition patient started on benzo atropine/methocarbamol and cyclobenzaprine. Intermittent pain clinic consulted however patient would require outpatient follow-up for evaluation and authorization/preapproval for pump placement. Will discuss with neurology for possible options. If patient clinically improves will be discharged 24 hours. 07/05-improved muscle spasm on Zanaflex/baclofen/Valium along with as needed carisoprodol. Gabapentin dose increased to 900 3 times daily. White count n ormalized. Interval resolution of pneumonia on imaging. Case management to coordinate transfer to [facility]/outpatient rehab for significant spasm related to prior spinal trauma. Also will need outpatient follow-up with pain clinic for baclofen pump placement. 07/06-patient tolerating benzodiazepine/Zanaflex with improving generalized spasm intensity and frequency. Uptitrate Zanaflex/Valium to effect. DC antibiotics in 24 hours. Anticipate transfer to neuro rehab. Case management coordinating. Gradual clinical improvement noted. Newman is draining clear urine 07/07-much improved generalized spasm with up titration of Valium/Zanaflex along with continued home medications. DC antibiotics today. No fever chills nausea vomiting. Continue therapies. Possible SNF placement 07/08-improving intermittent spasm now limited to 2 episodes a day. Uptitrate Valium to 10 AM/5 evening and 10 at bedtime, continue Zanaflex 3 mg 3 times daily in addition to existing home medications, stable labs and hemodynamics. Tachycardia improving. 07/09-patient symptomatically improving with no overnight neuromuscular spasm. Currently on Valium 10 mg 3 times daily/Zanaflex 3 mg 3 times daily in addition to home medications. Stable labs hemodynamics. Anticipate discharge to SNF versus home with home health. Case management coordinating. 07/10 Patient slept okay. No new complaints. No changes in regimen. Awaiting placement options Case management working on and awaiting authorization from insurance. *Discussed case with Dr. Lopez at [facility] regarding continued muscle spasms in light of escalating therapy (specifically diazepam and gabapentin). She recommended obtaining Brain, Cervical, & Thoracic MRI with/without contrast. Will discuss findings with her when results return. In speaking with the patient she last saw her [employer] security consultant probably 6 months or so ago. No medication changes. The plans were for her to establish with a neurologist but she says that fell through the cracks. Patient states that her spasms have always been primarily lower and truncal. She did have upper body spasm (which start in her upper back and extend into her arms) that occurred about 6 months ago that she relates to running out of her Effexor. She states she really has not had any upper extremity spasms since then at home, until now in the hospital. She is fully awake during the muscle spasms. She has required IV Ativan during the severe episodes. No history of seizures and she did have an evaluation for seizures after the spinal cord injury. 07/11 Sound like she had a spasm around 8:30 last night and was given IV Ativan. MRI done tonight and will discuss with neurologist. He otherwise slept fairly well last night. Cervical and thoracic MRI unremarkable but the brain MRI did show some lesions which the patient said she had some scattered lesions on MRI in 2018. Review of Systems: denies headache/fever/chills/nausea/vomiting/chest or abdominal pain/cough/dyspnea/diarrhea. Otherwise see above. Constitutional Vitals: Vital Signs Temp Pulse Resp BP Pulse Ox 97.6 F 77 18 115/76 95 07/10/20 12:00 07/10/20 09:50 07/11/20 02:00 07/11/20 06:00 07/11/20 06:02 Period Temp Pulse Resp BP Sys/Pena Pulse Ox Last 24 Hr 97.6 F-97.6 F 77 16-18 83-126/66-89 95-100 Intake and Output 07/10/20 07/11/20 07/11/20 21:59 05:59 13:59 Intake Total 240 220 Output Total 1325 350 Balance -1085 -130 Weight 70.398 kg Intake & Output: Intake & Output 07/10/20 07/11/20 07/11/20 21:59 05:59 13:59 Intake Total 240 220 Output Total 1325 350 Balance -1085 -130 Weight 70.398 kg Intake: Oral 240 220 Output: Urine Catheter Amount 1325 350 Other: Urine Appearance Clear Clear Urine Color Bright Yellow Light Cyndi Urine Odor Normal Stool Size Moderate Stool Color Brown Stool Consistency Soft Exam: General: Alert, Awake, No acute Distress Eyes/N/T: EOMI, Head/Neck: neck supple, CV: RRR, No murmurs, Pulm: Clear b/l, no wheezing/rhonchi/rales Abd: soft, nontender, +BS x4, Ext: no clubbing/cyanosis/edema Neuro: Alert, moves all extremities, Skin: warm/dry OBJ DATA Labs CBC & Chem 7: 07/08/20 05:02 07/08/20 05:02 Labs: Abnormal Lab Results 07/08/20 07/08/20 05:02 05:02 RBC 3.24 L Hgb 11.3 L Hct 31.3 L MCH 34.9 H MCHC 36.1 H [place] % (Auto) 14.0 H Calcium 8.3 L GGT 205 H AST 38 H ALT 51 H Alkaline Phosphatase 150 H Meds: Medications Acetaminophen (Tylenol) 650 mg PO Q4-6HP PRN; Protocol PRN Reason: Per Pain Protocol/Fever > 101 Last Admin: 07/10/20 20:52 Dose: 650 mg Documented by: Albuterol/Ipratropium (Duoneb) 3 ml NEB Q4HP PRN PRN Reason: Shortness Of Breath Last Admin: 07/06/20 17:44 Dose: 3 ml Documented by: Baclofen (Lioresal) 20 mg PO QID PENDING SALE TO [facility] Last Admin: 07/10/20 21:46 Dose: 20 mg Documented by: Bisacodyl (Dulcolax) 10 mg GA Q2-3DAYS PRN PRN Reason: Constipation Carisoprodol (Soma) 350 mg PO TIDP PRN PRN Reason: Muscle Spasm Last Admin: 07/10/20 12:10 Dose: 350 mg Documented by: Diazepam (Valium) 10 mg PO TID PENDING SALE TO [facility] Last Admin: 07/10/20 21:46 Dose: 10 mg Documented by: Diphenhydramine HCl (Benadryl) 25 mg PO HSP PRN PRN Reason: Insomnia Last Admin: 07/11/20 00:01 Dose: 25 mg Documented by: Diphenhydramine HCl (Benadryl) 25 mg PO HSP PRN PRN Reason: Insomnia Docusate Sodium (Colace) 100 mg PO BID PENDING SALE TO [facility] Last Admin: 07/10/20 21:32 Dose: Not Given Documented by: Enoxaparin Sodium (Lovenox) 40 mg SQ DAILY PENDING SALE TO [facility] Last Admin: 07/10/20 09:18 Dose: 40 mg Documented by: Gabapentin (Neurontin) 900 mg PO TID PENDING SALE TO [facility] Last Admin: 07/10/20 21:46 Dose: 900 mg Documented by: Guaifenesin/Codeine Phosphate (Robitussin Ac) 5 ml PO Q4HP PRN PRN Reason: Cough Last Admin: 07/08/20 15:27 Dose: 5 ml Documented by: Heparin Sodium (Porcine) (Heparin 10 Units/Ml Flush) 2 ml IV Q12 PENDING SALE TO [facility] Last Admin: 07/10/20 21:47 Dose: 2 ml Documented by: Acetaminophen (Ofirmev) 650 mg in 65 mls @ 130 mls/hr IV Q6HP PRN; Protocol PRN Reason: Per Pain Protocol/Fever > 101 Magnesium Sulfate (Magnesium Sulfate) 2 gm in 50 mls @ 50 mls/hr IV UD PRN PRN Reason: MG = or < 1.7 Potassium Chloride 40 meq/ (Dextrose) 520 mls @ 130 mls/hr IV UD PRN PRN Reason: K+ = or < 3.5 Iron Carb/Multivit/Surgical Clinical Reviewer/Folic Acid (Multivitamin W/Minerals) 1 tab PO DAILY PENDING SALE TO [facility] Last Admin: 07/10/20 09:20 Dose: 1 tab Documented by: Levalbuterol HCl (Xopenex) 0.63 mg INH QDAY PENDING SALE TO [facility] Last Admin: 07/10/20 09:38 Dose: 0.63 mg Documented by: Lorazepam (Ativan) 2 mg IV Q4-6HP PRN PRN Reason: Spasms Last Admin: 07/10/20 20:30 Dose: 2 mg Documented by: Melatonin (Melatonin 3mg Tablet) 3 mg PO HS PENDING SALE TO [facility] Last Admin: 07/10/20 21:46 Dose: 3 mg Documented by: Methocarbamol (Robaxin) 750 mg PO Q6 PENDING SALE TO [facility] Last Admin: 07/11/20 06:56 Dose: 750 mg Documented by: Montelukast Sodium (Singular) 10 mg PO DAILY PENDING SALE TO [facility] Last Admin: 07/10/20 09:21 Dose: 10 mg Documented by: Ondansetron HCl (Zofran Odt) 4 mg SL Q4-6HP PRN; Protocol PRN Reason: Nausea And Vomiting Last Admin: 07/09/20 16:41 Dose: 4 mg Documented by: Ondansetron HCl (Zofran) 4 mg IV Q6HP PRN PRN Reason: Nausea And Vomiting Oxycodone HCl (Roxicodone) 10 mg PO Q8HP PRN PRN Reason: Pain Last Admin: 07/10/20 16:18 Dose: 10 mg Documented by: Polyethylene Glycol (Miralax) 17 gm PO DAILYP PRN PRN Reason: Constipation Potassium Chloride (Klor-Con) 40 meq PO DAILYP PRN PRN Reason: K+ < 3.5 Last Admin: 07/05/20 18:38 Dose: 40 meq Documented by: Potassium/Phosphorus/Sodium (Neutra Phos) 2 packet PO DAILY PRN PRN Reason: PHOS <2.5 Fluticasone/Salmeterol (Advair 250-50 Diskus) 1 puff INH BID PENDING SALE TO [facility] Last Admin: 07/10/20 21:47 Dose: 1 puff Documented by: Senna/Docusate Sodium (Senna Plus Tablet) 1 tab PO HS PENDING SALE TO [facility] Last Admin: 07/10/20 21:48 Dose: Not Given Documented by: Sodium Chloride (Saline Flush) 10 ml IV Q8 PENDING SALE TO [facility] Last Admin: 07/11/20 05:59 Dose: 10 ml Documented by: Sodium Chloride (Saline Flush) 10 ml IV UD PRN PRN Reason: FLUSH Last Admin: 07/05/20 05:46 Dose: 10 ml Documented by: Sodium Chloride (Saline Flush) 10 ml IV Q12 PENDING SALE TO [facility] Last Admin: 07/10/20 21:47 Dose: Not Given Documented by: Tizanidine HCl (Zanaflex) 3 mg PO TID PENDING SALE TO [facility] Last Admin: 07/10/20 21:52 Dose: 3 mg Documented by: Venlafaxine HCl (Effexor Xr) 225 mg PO DAILY PENDING SALE TO [facility] Last Admin: 07/10/20 09:19 Dose: 225 mg Documented by: A/P Narrative A/P Narrative: A: -h/o T7-12 spinal cord injury (Jun 2017) w/acute exacerbation of recurrent/intractable neuromuscular spasms: -one severe spasm yesterday early evening, one during day shift yesterday -historically lower body spasms but extending to upper body recently -currently on scheduled gabapentin/venlafaxine/tizanidine/methocarbamol/bacl ofen/diazepam along with adjunctive carisoprodol. -discussed w/[place] neurologist Dr. Madeline Gardner, on gradual up titration of tizanidine/benzodiazepine per neurology recommendations. Also recommended outpatient evaluation at pain clinic for baclofen pump placement. -rediscussed w/[facility] [facility] (07/10) Dr. Lopez who recommended brain/cervical/thoracic mri -Brain MRI with multiple high signal lesions deep posterior left frontal and right parietal -Cervical/Thoracic MRI unremarkable *h/o paraparesis following traumatic spinal injury Jun 2017: -requires assistance with ADL's -essentially wheelchair bound but has shown some improvement w/PT prior to admission by ambulating short distances w/wheeled walker *LLL Pneumonia: resolved, on room air Completed 7-day antibiotics *Sepsis: 2/2 pneumonia. resolved *Acute exacerbation of asthma: resolved, continue as needed bronchodilators *h/o chronic pain: on oxycodone *acute otitis media: resolved *Anxiety disorder on venlafaxine Plan: -discuss findings with Neurologist -Continue scheduled Valium 10 mg 3 times daily/Zanaflex 3 mg 3 times daily along with pre-existing medications until plain clinic evaluation for baclofen pump -case discussed with neurology, see primary assessment notes -outpatient pain clinic referral for baclofen pump evaluation - -ppx: lovenox Time Spent With Patient Time: Total time spent is greater than 50% in coordination of care (as documented) at patient's floor/unit and/or counseling patient:
[2020-07-11] MEDS: GABAPENTIN 300 MG CAPSULE PO SCH ×3 (08:12→21:25)
[2020-07-11] MEDS: MONTELUKAST 10 MG TABLET PO SCH (08:12)
[2020-07-11] MEDS: MULTIVIT,THER IRON,CA,FA & MIN 1 TABLET PO SCH (08:12)
[2020-07-11] MEDS: DIAZEPAM 10 MG TABLET PO SCH ×3 (08:12→21:25)
[2020-07-11] MEDS: ENOXAPARIN 40 MG/0.4 ML SYRINGE SQ SCH (08:13)
[2020-07-11] MEDS: FLUTICASONE/SALMETEROL 250/50 INHALER #14 INH SCH ×2 (08:13→21:24)
[2020-07-11] MEDS: DOCUSATE SODIUM 100 MG CAPSULE PO SCH ×2 (08:13→21:24)
[2020-07-11] MEDS: BACLOFEN 10 MG TABLET PO SCH ×4 (08:26→21:26)
[2020-07-11] MEDS: tiZANidine 4 MG TABLET PO SCH ×3 (08:26→21:26)
[2020-07-11] MEDS: VENLAFAXINE 75 MG CAP.XL.24H PO SCH (08:27)
[2020-07-11] MEDS: CARISOPRODOL 350 MG TABLET PO PRN (08:47)
[2020-07-11] MEDS: oxyCODONE HCL 5 MG TABLET PO PRN ×4 (08:47→23:08)
[2020-07-11] MEDS: LEVALBUTEROL 0.63 MG/3 ML AMPUL.NEB INH SCH (08:57)
--- NOTE | 2020-07-11 09:41 | Ultrasound Report ---
CLINICAL INFORMATION: Evaluate Internal Jugular Vein Left - possible thrombosis on MRI COMPARISON: None. FINDINGS: The left internal jugular vein is normal in contour and caliber demonstrates normal venous blood flow. No evidence of thrombosis. IMPRESSION: Left internal jugular vein is unremarkable as no thrombus Interpreted and Authenticated by: Caden Mars 07/11/20
[2020-07-11] MEDS ORDERED: DIAZEPAM 5 MG TABLET PO ONE (11:19)
[2020-07-11] MEDS: ACETAMINOPHEN 325 MG TABLET PO SCH ×3 (11:35→23:07)
[2020-07-11] MEDS: LIDOCAINE PATCH TOPICAL SCH (11:35)
[2020-07-11] MEDS: LORazepam 2 MG/ML VIAL IV PRN ×2 (11:53→20:50)
[2020-07-11] MEDS: ONDANSETRON 4 MG ODT TABLET SL PRN (17:23)
[2020-07-11] MEDS: SENNOSIDES/DOCUSATE SODIUM 1 TAB TABLET PO SCH (21:25)
[2020-07-11] MEDS: MELATONIN 3 MG TABLET PO SCH (21:26)
[2020-07-12] MEDS: oxyCODONE HCL 5 MG TABLET PO PRN ×4 (04:47→20:14)
[2020-07-12] MEDS: METHOCARBAMOL 750 MG TABLET PO SCH ×4 (05:30→23:22)
[2020-07-12] MEDS: ACETAMINOPHEN 325 MG TABLET PO SCH ×4 (05:30→23:22)
[2020-07-12] MEDS: 0.9 % SODIUM CHLORIDE 10 ML SYRINGE IV SCH ×5 (05:31→20:14)
--- NOTE | 2020-07-12 06:43 | Internal Med Progress Note ---
SUBJECTIVE Subjective Patient information: Note initiated : 07/12/20 at 6:40 am Service Date, if different from initiated Date: [] Patient: Kiya Smith a 35 y/o F admitted on 07/01/20 for congestion and cough. Chief Complaint: [] Interval history: History of present illness: Ms. Smith is a 35 year old F With a history of prior spinal surgery/paraplegia and wheelchair dependent who presents to the ER with 3 days onset of worsening weakness/myalgias/cough/fever headache and loss of appetite. Symptoms are progressed with increasing shortness of breath along with right ear pain. She is endorses to sick contact with URI symptoms. With progressive symptoms she presents to the ER with initial work-up was consistent with bilateral pneumonia suspicious for Covid. White count 70,000. Patient was started on antibiotic coverage/bronchodilators and breathing treatments. Elevated ALT precludes use of remdesivir. Hospital service was consulted. At the time of evaluation patient is very anxious/frequent spells of coughing. She endorses history as above. Denies diarrhea, dysuria, abdominal pain. Her symptoms has been relieved with Tylenol. She has known paraplegia and is wheelchair dependent and has been taking baclofen/oxycodone without help 07/02-patient doing well. No overnight events. No concerns per staff. No fever chills nausea vomiting. White count downtrending. No overnight fever chills. Persistent cough and shortness of breath. Currently on room air. Tachycardia improved. ABG improving 07/03-patient clinically improving with antibiotics. Shortness breath improved. Now on room air. Improved cough. White count 16.7. Patient experiencing frequent neuromuscular spasm generalized with tonic posturing/spontaneous dislocation of shoulder requiring multiple doses of Robaxin/baclofen/lorazepam/IV magnesium to no effect. Patient responded well to dantrolene. No indication of drug-induced dyskinesis/neuroleptic malignant syndrome. Patient started on every 6 hours dantrolene along with cyclobenzaprine/methocarbamol and lorazepam. 07/04-pneumonia clinically resolved. Now on room air. White count 8000. However persistent dystonic reaction/muscle spasm requiring carisoprodol/baclofen/gabapentin Ativan. In addition patient started on benzo atropine/methocarbamol and cyclobenzaprine. Intermittent pain clinic consulted however patient would require outpatient follow-up for evaluation and authorization/preapproval for pump placement. Will discuss with neurology for possible options. If patient clinically improves will be discharged 24 hours. 07/05-improved muscle spasm on Zanaflex/baclofen/Valium along with as needed carisoprodol. Gabapentin dose increased to 900 3 times daily. White count n ormalized. Interval resolution of pneumonia on imaging. Case management to coordinate transfer to [facility]/outpatient rehab for significant spasm related to prior spinal trauma. Also will need outpatient follow-up with pain clinic for baclofen pump placement. 07/06-patient tolerating benzodiazepine/Zanaflex with improving generalized spasm intensity and frequency. Uptitrate Zanaflex/Valium to effect. DC antibiotics in 24 hours. Anticipate transfer to neuro rehab. Case management coordinating. Gradual clinical improvement noted. Newman is draining clear urine 07/07-much improved generalized spasm with up titration of Valium/Zanaflex along with continued home medications. DC antibiotics today. No fever chills nausea vomiting. Continue therapies. Possible SNF placement 07/08-improving intermittent spasm now limited to 2 episodes a day. Uptitrate Valium to 10 AM/5 evening and 10 at bedtime, continue Zanaflex 3 mg 3 times daily in addition to existing home medications, stable labs and hemodynamics. Tachycardia improving. 07/09-patient symptomatically improving with no overnight neuromuscular spasm. Currently on Valium 10 mg 3 times daily/Zanaflex 3 mg 3 times daily in addition to home medications. Stable labs hemodynamics. Anticipate discharge to SNF versus home with home health. Case management coordinating. 07/10 Patient slept okay. No new complaints. No changes in regimen. Awaiting placement options Case management working on and awaiting authorization from insurance. *Discussed case with Dr. Lopez at [place] regarding continued muscle spasms in light of escalating therapy (specifically diazepam and gabapentin). She recommended obtaining Brain, Cervical, & Thoracic MRI with/without contrast. Will discuss findings with her when results return. In speaking with the patient she last saw her director business management probably 6 months or so ago. No medication changes. The plans were for her to establish with a neurologist but she says that fell through the cracks. Patient states that her spasms have always been primarily lower and truncal. She did have upper body spasm (which start in her upper back and extend into her arms) that occurred about 6 months ago that she relates to running out of her Effexor. She states she really has not had any upper extremity spasms since then at home, until now in the hospital. She is fully awake during the muscle spasms. She has required IV Ativan during the severe episodes. No history of seizures and she did have an evaluation for seizures after the spinal cord injury. 07/11 Sound like she had a spasm around 8:30 last night and was given IV Ativan. MRI done tonight and will discuss with neurologist. He otherwise slept fairly well last night. Cervical and thoracic MRI unremarkable but the brain MRI did show some lesions which the patient said she had some scattered lesions on MRI in 2018. Discussed case with [place] neurologist Dr. Villeda who referred me to her colleague Dr. Ingram (PM&R). We discussed case in length and final recommendations is that we will increase her diazepam, will schedule Tylenol. Provide a lidocaine patch to low back for her chronic pain and increase as needed frequency of her oxycodone to try to keep up on her chronic back pain controlled as it as been a trigger at times. She was able to stand with physical therapy for the first time today since she has been in the hospital, she was able to take a sidestep. During physical therapy she started having her spasming which cut her PT short. Spasms last about 30 minutes. At home her muscle spasms last 15 to 20 minutes and she typically has several spasms every other day. Does state that when she does have the lower extremity spasming at home she does have shaking in her arms as well and has fallen out of her wheelchair before from the spasming. I spent some time talking with the patient about the conversation I had with Dr. Ingram. Our goal is to get her closer to baseline and to be able to avoid the IV Ativan to break her severe spasms, in order to get her to post falls rehab. 07/12 pt had a severe spasm while in the shower. Aferwards she slept well for 3-hours and then was awake d/t muscle discomfort. No pains or complaints this morning. Working with PT this morning and doing better. no diarrhea. Review of Systems: denies headache/fever/chills/nausea/vomiting/chest or abdominal pain /cough/dyspnea/diarrhea. Otherwise see above. Constitutional Vitals: Vital Signs Temp Pulse Resp BP Pulse Ox 98.7 F 72 16 103/71 97 07/11/20 21:49 07/11/20 09:28 07/12/20 02:00 07/12/20 04:00 07/12/20 05:55 Period Temp Pulse Resp BP Sys/Pena Pulse Ox Last 24 Hr 96.7 F-98.7 F 72 16-19 95-122/61-92 95-100 Intake and Output 07/11/20 07/12/20 07/12/20 21:59 05:59 13:59 Output Total 500 350 Balance -500 -350 Weight 69.989 kg Intake & Output: Intake & Output 07/11/20 07/12/20 07/12/20 21:59 05:59 13:59 Output Total 500 350 Balance -500 -350 Weight 69.989 kg Output: Urine Catheter Amount 500 350 Other: Urine Appearance Clear Clear Uretheral ([place]) Clear Urine Color Bright Yellow Dark Cyndi Uretheral ([place]) Light Cyndi Urine Odor Normal Uretheral ([place]) Normal Exam: General: Alert, Awake, No acute Distress Eyes/N/T: EOMI, Head/Neck: neck supple, CV: tachy but regular - after Phys therapy, No murmurs, Pulm: Clear b/l, no wheezing/rhonchi/rales Abd: soft, nontender, +BS x4, Ext: no clubbing/cyanosis/edema Neuro: Alert, moves all extremities, generalized weakness Skin: warm/dry OBJ DATA Labs CBC & Chem 7: 07/12/20 06:52 07/12/20 06:52 Meds: Medications Acetaminophen (Tylenol) 650 mg PO Q6H [facility]; Protocol Stop: 07/13/20 10:59 Last Admin: 07/12/20 05:30 Dose: 650 mg Documented by: Albuterol/Ipratropium (Duoneb) 3 ml NEB Q4HP PRN PRN Reason: Shortness Of Breath Last Admin: 07/06/20 17:44 Dose: 3 ml Documented by: Baclofen (Lioresal) 20 mg PO QID [facility] Last Admin: 07/11/20 21:26 Dose: 20 mg Documented by: Bisacodyl (Dulcolax) 10 mg [place] Q2-3DAYS PRN PRN Reason: Constipation Carisoprodol (Soma) 350 mg PO TIDP PRN PRN Reason: Muscle Spasm Last Admin: 07/11/20 08:47 Dose: 350 mg Documented by: Diazepam (Valium) 15 mg PO TID [facility] Last Admin: 07/11/20 21:25 Dose: 15 mg Documented by: Diphenhydramine HCl (Benadryl) 25 mg PO HSP PRN PRN Reason: Insomnia Last Admin: 07/11/20 23:07 Dose: 25 mg Documented by: Diphenhydramine HCl (Benadryl) 25 mg PO HSP PRN PRN Reason: Insomnia Docusate Sodium (Colace) 100 mg PO BID [facility] Last Admin: 07/11/20 21:24 Dose: Not Given Documented by: Enoxaparin Sodium (Lovenox) 40 mg SQ DAILY [facility] Last Admin: 07/11/20 08:13 Dose: 40 mg Documented by: Gabapentin (Neurontin) 900 mg PO TID [facility] Last Admin: 07/11/20 21:25 Dose: 900 mg Documented by: Guaifenesin/Codeine Phosphate (Robitussin Ac) 5 ml PO Q4HP PRN PRN Reason: Cough Last Admin: 07/08/20 15:27 Dose: 5 ml Documented by: Heparin Sodium (Porcine) (Heparin 10 Units/Ml Flush) 2 ml IV Q12 [facility] Last Admin: 07/11/20 21:24 Dose: 2 ml Documented by: Acetaminophen (Ofirmev) 650 mg in 65 mls @ 130 mls/hr IV Q6HP PRN; Protocol PRN Reason: Per Pain Protocol/Fever > 101 Magnesium Sulfate (Magnesium Sulfate) 2 gm in 50 mls @ 50 mls/hr IV UD PRN PRN Reason: MG = or < 1.7 Potassium Chloride 40 meq/ (Dextrose) 520 mls @ 130 mls/hr IV UD PRN PRN Reason: K+ = or < 3.5 Iron Carb/Multivit/[place]/Folic Acid (Multivitamin W/Minerals) 1 tab PO DAILY [facility] Last Admin: 07/11/20 08:12 Dose: 1 tab Documented by: Levalbuterol HCl (Xopenex) 0.63 mg INH QDAY [facility] Last Admin: 07/11/20 08:57 Dose: 0.63 mg Documented by: Lidocaine (Lidoderm) 1 patch TOPICAL DAILY@1000 [facility] Last Admin: 07/11/20 11:35 Dose: 1 patch Documented by: Lorazepam (Ativan) 2 mg IV Q4-6HP PRN PRN Reason: Spasms Last Admin: 07/11/20 20:50 Dose: 2 mg Documented by: Melatonin (Melatonin 3mg Tablet) 3 mg PO [facility] Last Admin: 07/11/20 21:26 Dose: 3 mg Documented by: Methocarbamol (Robaxin) 750 mg PO Q6 [facility] Last Admin: 07/12/20 05:30 Dose: 750 mg Documented by: Montelukast Sodium (Singular) 10 mg PO DAILY [facility] Last Admin: 07/11/20 08:12 Dose: 10 mg Documented by: Ondansetron HCl (Zofran Odt) 4 mg SL Q4-6HP PRN; Protocol PRN Reason: Nausea And Vomiting Last Admin: 07/11/20 17:23 Dose: 4 mg Documented by: Ondansetron HCl (Zofran) 4 mg IV Q6HP PRN PRN Reason: Nausea And Vomiting Oxycodone HCl (Roxicodone) 10 mg PO Q4-6HP PRN PRN Reason: Pain Last Admin: 07/12/20 04:47 Dose: 10 mg Documented by: Polyethylene Glycol (Miralax) 17 gm PO DAILYP PRN PRN Reason: Constipation Potassium Chloride (Klor-Con) 40 meq PO DAILYP PRN PRN Reason: K+ < 3.5 Last Admin: 07/05/20 18:38 Dose: 40 meq Documented by: Potassium/Phosphorus/Sodium (Neutra Phos) 2 packet PO DAILY PRN PRN Reason: PHOS <2.5 Fluticasone/Salmeterol (Advair 250-50 Diskus) 1 puff INH BID [facility] Last Admin: 07/11/20 21:24 Dose: 1 puff Documented by: Senna/Docusate Sodium (Senna Plus Tablet) 1 tab PO [facility] Last Admin: 07/11/20 21:25 Dose: Not Given Documented by: Sodium Chloride (Saline Flush) 10 ml IV Q8 [facility] Last Admin: 07/12/20 05:31 Dose: 10 ml Documented by: Sodium Chloride (Saline Flush) 10 ml IV UD PRN PRN Reason: FLUSH Last Admin: 07/05/20 05:46 Dose: 10 ml Documented by: Sodium Chloride (Saline Flush) 10 ml IV Q12 [facility] Last Admin: 07/11/20 21:25 Dose: 10 ml Documented by: Tizanidine HCl (Zanaflex) 4 mg PO TID [facility] Last Admin: 07/11/20 21:26 Dose: 4 mg Documented by: Venlafaxine HCl (Effexor Xr) 225 mg PO DAILY [facility] Last Admin: 07/11/20 08:27 Dose: 225 mg Documented by: A/P Narrative A/P Narrative: A: -h/o T7-12 spinal cord injury (Jun 2017) w/acute exacerbation of recurrent/intractable neuromuscular spasms: -had two severe spasms yesterday, non overnight -historically lower body spasms but extending to upper body recently -Spasms lasting 15-30 minutes -discussed w/[place] neurologist Dr. Madeline Gardner > gradual up titration of ti zanidine/benzodiazepine. Also recommended outpatient evaluation at pain clinic for baclofen pump placement. -rediscussed w/[facility] (07/10) Dr. Joon Lopez who recommended brain/cervical/thoracic mri -Brain MRI with multiple nonspecific lesions felt to be chronic ischemic, 2018 MRI with similar findings -Cervical/Thoracic MRI unremarkable -Discussed case (07/11) with pts' director business management in [place] Dr. Bueno -Discussed w/[facility] (07/11) who referred me to Dr[facility] Soliz ([facility]) for further recs *Chronic LBP: increased prn frequency of oxycodone *h/o paraparesis following traumatic spinal injury Jun 2017: -requires assistance with ADL's -essentially wheelchair bound but has shown some improvement w/PT prior to admission by ambulating short distances w/wheeled walker *Generalized weakness/deconditioning/debility: -stood today again with PT no spasms *LLL Pneumonia: resolved, on room. completed 7-day antibiotics *Sepsis: 2/2 pneumonia. resolved *Acute exacerbation of asthma: resolved, continue as needed bronchodilators *acute otitis media: resolved *Anxiety disorder: on venlafaxine Plan: -have been discussing with [place] [facility] and Music Therapy Teacher (Dr. Soliz) as well as the pt's director business management Dr. Bueno -increased Valium to 15mg tid, Zanaflex to 4mg tid, cont home baclofen/gary/robaxin, cont prn soma. -added lidoderm, scheduled tylenol, and increased prn frequency of home oxycodone for LBP -goal is to improve enough not to require iv ativan to abort severe spasms, then to [facility] -discussed with Dr. Cruz, further recs pending -outpatient pain clinic referral for baclofen pump evaluation -PT/OT, increase PT frequency -ppx: lovenox Time Spent With Patient Time: Total time spent is greater than 50% in coordination of care (as doc umented) at patient's floor/unit and/or counseling patient:
[2020-07-12 07:57] LABS: ALT/SGPT 128 U/L (<40); AST/SGOT 185 U/L (<32); Albumin/Globulin Ratio 1.2 (1.0-2.3); Alkaline Phosphatase 205 U/L (39-117); Basophils # (Auto) 0.03 K/mcL (0.00-0.20); Basophils % (Auto) 0.5 % (0.0-2.0); Bilirubin,Direct < 0.2 mg/dL (<0.3); Bilirubin,Total 0.2 mg/dL (0.1-1.0); Blood Urea Nitrogen 10 mg/dL (6-20); Calcium 8.8 mg/dL (8.6-10.4); Carbon Dioxide 26 mmol/L (22-30); Chloride 101 mmol/L (96-108); Eosinophils # (Auto) 0.19 K/mcL (0.00-0.70); Eosinophils % (Auto) 3.4 % (0.0-7.0); Globulin 3.4 gm/dL (2.2-3.7); Glomerular Filtration Rate 114; Glucose 80 mg/dL (70-105); Hematocrit 34.8 % (36.0-48.0); Hemoglobin 12.7 g/dL (12.0-15.0); Lactate Dehydrogenase 272 U/L (135-225); Lymphocytes # (Auto) 1.71 K/mcL (1.50-4.80); Lymphocytes % (Auto) 30.2 % (15.0-49.0); Mean Cell Volume 95.1 fL (80.0-100.0); Mean Corpuscular HGB Conc 36.5 g/dL (31.0-36.0); Mean Platelet Volume 9.4 fL (7.4-10.4); Monocytes # (Auto) 0.36 K/mcL (0.10-0.90); Monocytes % (Auto) 6.3 % (1.0-12.0); Neutrophils % (Auto) 59.6 % (38.0-78.0); Phosphorous 4.1 mg/dL (2.5-4.5); Platelet Count 331 K/mcL (140-440); RBC 3.66 M/mcL (4.00-5.20); Red Cell Distribution Width 14.3 % (11.5-14.5); Triglycerides 106 mg/dL (<150); Uric Acid 6.1 mg/dL (2.5-8.0); WBC 5.7 K/mcL (4.5-11.0)
[2020-07-12] MEDS: LEVALBUTEROL 0.63 MG/3 ML AMPUL.NEB INH SCH (07:58)
[2020-07-12] MEDS: FLUTICASONE/SALMETEROL 250/50 INHALER #14 INH SCH ×2 (07:59→20:25)
[2020-07-12] MEDS: DOCUSATE SODIUM 100 MG CAPSULE PO SCH ×2 (08:00→20:12)
[2020-07-12] MEDS: ENOXAPARIN 40 MG/0.4 ML SYRINGE SQ SCH (08:27)
[2020-07-12] MEDS: GABAPENTIN 300 MG CAPSULE PO SCH ×3 (08:28→20:09)
[2020-07-12] MEDS: MULTIVIT,THER IRON,CA,FA & MIN 1 TABLET PO SCH (08:28)
[2020-07-12] MEDS: DIAZEPAM 10 MG TABLET PO SCH ×3 (08:29→20:09)
[2020-07-12] MEDS: ONDANSETRON 4 MG ODT TABLET SL PRN (08:29)
[2020-07-12] MEDS: MONTELUKAST 10 MG TABLET PO SCH (08:29)
[2020-07-12] MEDS: VENLAFAXINE 75 MG CAP.XL.24H PO SCH (09:03)
[2020-07-12] MEDS: BACLOFEN 10 MG TABLET PO SCH ×4 (09:03→20:09)
[2020-07-12] MEDS: LIDOCAINE PATCH TOPICAL SCH (09:03)
[2020-07-12] MEDS: CARISOPRODOL 350 MG TABLET PO PRN (09:03)
[2020-07-12] MEDS: tiZANidine 4 MG TABLET PO SCH ×3 (09:03→20:08)
[2020-07-12] MEDS: LORazepam 2 MG/ML ORAL.SOL PO PRN ×2 (12:02→19:40)
--- NOTE | 2020-07-12 15:36 | Ultrasound Report ---
CLINICAL INFORMATION: liver/GB. transaminitis COMPARISON: None. FINDINGS: Liver is normal in size configuration and echotexture spanning 15 cm at mid clavicular line. No focal hepatic lesions. Gallbladder is surgically absent. Mild dilatation of the intrahepatic ducts is noted, however the common hepatic and common bile duct are normal caliber: CBD is 5 mm. Both the hepatic and portal veins are patent and show normal directional flow. Pancreas is normal in size and echotexture with a normal duct - 1.7 mm. No free fluid IMPRESSION: Mild dilatation of the intrahepatic ducts. Suggest abdominal MRI MRCP for more specific evaluation. Interpreted and Authenticated by: Caden Mars 07/12/20
--- NOTE | 2020-07-12 16:30 | History and Physical Report ---
DATE OF ADMISSION: 07/01/2020 HISTORY OF PRESENT ILLNESS: The patient is a 35-year-old woman who suffers with paraplegia with spasticity. Her paraplegia is a result of complications from a lumbar puncture in 2018. Despite decompression, she was left with an incomplete spinal injury. She was admitted to the hospital with pneumonia, and during her hospital stay her spasticity actually worsened. It has been a problem for the last couple of years despite maximizing her oral medications. She has had discussions with her previous neurologist regarding the possibility of a baclofen pump. Over the last several days her blood work has normalized with regards to white count as well as her chest x-ray. Spasticity has required IV benzodiazepines to get any relief. PAST MEDICAL HISTORY: Significant for epidural hematoma and subsequent paraplegia with spasticity. She has a neurogenic bladder and self caths several times daily She has a history of migraine headaches without aura. Factor V Leiden. PAST SURGICAL HISTORY: Significant for thoracolumbar decompression. MEDICATIONS: Current medications are in the EMR. PHYSICAL EXAMINATION: GENERAL: The patient is a very pleasant, articulate 35-year-old woman in no obvious distress. VITALS: Blood pressure 95/65 with pulse of 98, respirations 18. HEENT: Extraocular movements intact. Anicteric sclerae. NECK: Supple. No adenopathy or thyromegaly appreciated. CHEST: Clear to auscultation anteriorly. CV: RRR. Normal S1, S2. No murmurs, gallops, or rubs. ABDOMEN: Soft, active bowel sounds. No organomegaly appreciated. EXTREMITIES: Fine tremor in the right lower extremity. Diffuse atrophy noted in the lower extremities. There is 1+ pitting edema to the knees on the left, trace on the right. There is marked weakness in the proximal and distal muscle groups of the lower extremities. NEUROLOGIC: Sensation is hypoesthetic diffusely from the mid-thoracic dermatomes caudad. IMPRESSION: 1. Paraplegia with spasticity. 2. Resolving pneumonia, currently afebrile with normal white count. 3. History of autonomic dysreflexia. PLAN: I had a lengthy discussion with the patient with regards to the risks and benefits of a trial of intrathecal baclofen. We also discussed the risks and benefits of a permanent pump placement. All questions were answered, and she requested to proceed. We will plan a trial tomorrow as she is anticoagulated on Lovenox. The trial will be with 50 mcg of baclofen. If she does well, we will plan a permanent pump implant in the near future. CGF:magan Job ID: [id number] Doc ID: [id number] Michael Cruz MD
[2020-07-12] MEDS: SENNOSIDES/DOCUSATE SODIUM 1 TAB TABLET PO SCH (20:13)
[2020-07-12] MEDS: MELATONIN 3 MG TABLET PO SCH (20:13)
[2020-07-13] MEDS: ACETAMINOPHEN 325 MG TABLET PO SCH (05:06)
[2020-07-13] MEDS: METHOCARBAMOL 750 MG TABLET PO SCH ×4 (05:06→23:59)
[2020-07-13] MEDS: 0.9 % SODIUM CHLORIDE 10 ML SYRINGE IV SCH ×6 (05:34→21:05)
--- NOTE | 2020-07-13 05:54 | Magnetic Resonance Report ---
CLINICAL INFORMATION: Dilated intrahepatic ducts on ultrasound COMPARISON: None. TECHNIQUE: MRCP was performed using 3D FRFSE respiratory triggered and single-shot FSE thick slab technique. Axial T2 SSFSE and coronal SSFSE images were obtained through the upper abdomen as well. FINDINGS: There is equivocal mild dilatation and irregularity of the intrahepatic ducts on the MIP images. The common hepatic and common bile ducts are normal in caliber and contour: CBD is 4 mm. The pancreatic duct also normal in caliber - 2 mm. The gallbladder is surgically absent. The liver, both kidneys, adrenal glands, spleen pancreas and aorta are normal in size configuration and signal without focal lesion. There is no free air or free fluid. Stomach and visualized small large bowel are normal IMPRESSION: Equivocal mild dilatation and slight irregularity of the intrahepatic ducts on MIP images. Patient will return for abdominal MRI with use of Eovist, a biliary contrast agent, which should better visualize the intrahepatic common hepatic common bile ducts. Interpreted and Authenticated by: Caden Mars 07/13/20
[2020-07-13 06:50] LABS: ALT/SGPT 130 U/L (<40); AST/SGOT 114 U/L (<32); Albumin/Globulin Ratio 1.1 (1.0-2.3); Alkaline Phosphatase 192 U/L (39-117); Bilirubin,Direct < 0.2 mg/dL (<0.3); Bilirubin,Total 0.2 mg/dL (0.1-1.0); Blood Urea Nitrogen 11 mg/dL (6-20); Calcium 9.1 mg/dL (8.6-10.4); Carbon Dioxide 28 mmol/L (22-30); Chloride 102 mmol/L (96-108); Globulin 3.6 gm/dL (2.2-3.7); Glomerular Filtration Rate 114; Glucose 77 mg/dL (70-105); Lactate Dehydrogenase 188 U/L (135-225); Triglycerides 123 mg/dL (<150); Uric Acid 5.9 mg/dL (2.5-8.0)
--- NOTE | 2020-07-13 07:27 | Internal Med Progress Note ---
SUBJECTIVE Subjective Patient information: Note initiated : 07/13/20 at 7:21 am Service Date, if different from initiated Date: [] Patient: Kiya Smith a 35 y/o F admitted on 07/01/20 for congestion and cough. Chief Complaint: [] Interval history: History of present illness: Ms. Smith is a 35 year old F With a history of prior spinal surgery/paraplegia and wheelchair dependent who presents to the ER with 3 days onset of worsening weakness/myalgias/cough/fever headache and loss of appetite. Symptoms are progressed with increasing shortness of breath along with right ear pain. She is endorses to sick contact with URI symptoms. With progressive symptoms she presents to the ER with initial work-up was consistent with bilateral pneumonia suspicious for Covid. White count 70,000. Patient was started on antibiotic coverage/bronchodilators and breathing treatments. Elevated ALT precludes use of remdesivir. Hospital service was consulted. At the time of evaluation patient is very anxious/frequent spells of coughing. She endorses history as above. Denies diarrhea, dysuria, abdominal pain. Her symptoms has been relieved with Tylenol. She has known paraplegia and is wheelchair dependent and has been taking baclofen/oxycodone without help 07/02-patient doing well. No overnight events. No concerns per staff. No fever chills nausea vomiting. White count downtrending. No overnight fever chills. Persistent cough and shortness of breath. Currently on room air. Tachycardia improved. ABG improving 07/03-patient clinically improving with antibiotics. Shortness breath improved. Now on room air. Improved cough. White count 16.7. Patient experiencing frequent neuromuscular spasm generalized with tonic posturing/spontaneous dislocation of shoulder requiring multiple doses of Robaxin/baclofen/lorazepam/IV magnesium to no effect. Patient responded well to dantrolene. No indication of drug-induced dyskinesis/neuroleptic malignant syndrome. Patient started on every 6 hours dantrolene along with cyclobenzaprine/methocarbamol and lorazepam. 07/04-pneumonia clinically resolved. Now on room air. White count 8000. However persistent dystonic reaction/muscle spasm requiring carisoprodol/baclofen/gabapentin Ativan. In addition patient started on benzo atropine/methocarbamol and cyclobenzaprine. Intermittent pain clinic consulted however patient would require outpatient follow-up for evaluation and authorization/preapproval for pump placement. Will discuss with neurology for possible options. If patient clinically improves will be discharged 24 hours. 07/05-improved muscle spasm on Zanaflex/baclofen/Valium along with as needed carisoprodol. Gabapentin dose increased to 900 3 times daily. White count n ormalized. Interval resolution of pneumonia on imaging. Case management to coordinate transfer to [facility]/outpatient rehab for significant spasm related to prior spinal trauma. Also will need outpatient follow-up with pain clinic for baclofen pump placement. 07/06-patient tolerating benzodiazepine/Zanaflex with improving generalized spasm intensity and frequency. Uptitrate Zanaflex/Valium to effect. DC antibiotics in 24 hours. Anticipate transfer to neuro rehab. Case management coordinating. Gradual clinical improvement noted. Newman is draining clear urine 07/07-much improved generalized spasm with up titration of Valium/Zanaflex along with continued home medications. DC antibiotics today. No fever chills nausea vomiting. Continue therapies. Possible SNF placement 07/08-improving intermittent spasm now limited to 2 episodes a day. Uptitrate Valium to 10 AM/5 evening and 10 at bedtime, continue Zanaflex 3 mg 3 times daily in addition to existing home medications, stable labs and hemodynamics. Tachycardia improving. 07/09-patient symptomatically improving with no overnight neuromuscular spasm. Currently on Valium 10 mg 3 times daily/Zanaflex 3 mg 3 times daily in addition to home medications. Stable labs hemodynamics. Anticipate discharge to SNF versus home with home health. Case management coordinating. 07/10 Patient slept okay. No new complaints. No changes in regimen. Awaiting placement options Case management working on and awaiting authorization from insurance. *Pt was accepted to [facility]. However, after having a physician to physician discussion with Dr. Iqbal - he stated since patient was still requiring IV Ativan on occasion to break her severe Spasms, that they would not be able to accept the patient at this time. Because of this, I reached out to [facility] again for further direction in treatment. I continued my discussion with [place] [facility] again the next day. Discussed case with Dr. Lopez at [place] regarding continued muscle spasms in light of escalating therapy (specifically diazepam and gabapentin). She recommended obtaining Brain, Cervical, & Thoracic MRI with/without contrast. Will discuss findings with her when results return. In speaking with the patient she last saw her group billing coordinator probably 6 months or so ago. No medication changes. The plans were for her to establish with a neurologist but she says that fell through the cracks. Patient states that her spasms have always been primarily lower and truncal. She did have upper body spasm (which start in her upper back and extend into her arms) that occurred about 6 months ago that she relates to running out of her E ffexor. She states she really has not had any upper extremity spasms since then at home, until now in the hospital. She is fully awake during the muscle spasms. She has required IV Ativan during the severe episodes. No history of seizures and she did have an evaluation for seizures after the spinal cord injury. 07/11 Sound like she had a spasm around 8:30 last night and was given IV Ativan. MRI done tonight and will discuss with neurologist. He otherwise slept fairly well last night. Cervical and thoracic MRI unremarkable but the brain MRI did show some lesions which the patient said she had some scattered lesions on MRI in 2018. Discussed case with [facility] neurologist Dr. Villeda who referred me to her colleague Dr. Ingram (PM&R). We discussed case in length and final recommendati ons is that we will increase her diazepam, will schedule Tylenol. Provide a lidocaine patch to low back for her chronic pain and increase as needed frequency of her oxycodone to try to keep up on her chronic back pain controlled as it as been a trigger at times. She was able to stand with physical therapy for the first time today since she has been in the hospital, she was able to take a sidestep. During physical therapy she started having her spasming which cut her PT short. Spasms last abo ut 30 minutes. At home her muscle spasms last 15 to 20 minutes and she typically has several spasms every other day. Does state that when she does have the lower extremity spasming at home she does have shaking in her arms as well and has fallen out of her wheelchair before from the spasming. I spent some time talking with the patient about the conversation I had with Dr. Ingram. Our goal is to get her closer to baseline and to be able to avoid the IV Ativan to break her severe spasms, in order to get her to [facility]. 07/12 pt had a severe spasm while in the shower. Aferwards she slept well for 3-hours and then was awake d/t muscle discomfort. No pains or complaints this morning. Working with PT this morning and doing better. no diarrhea. Follow-up labs essentially unremarkable except for elevated LFTs. She did have LFTs outpatient 2018. They were elevated on admission suspected to be related to infection. They did show improvement but then worsened again. This led to and abdominal ultrasound and subsequent recommended MRI. 07/13 Have been able to use oral Ativan instead of IV Ativan to abort severe spasms that happen several times a day. Last spasm was yesterday at 7:[address] Cruz for injection this morning for trial portion of baclofen pump preparation. MRI pending for LFT work-up. Patient slept okay and seems to be in good spirits this morning. Review of Systems: Denies headache/fever/chills/vomiting/chest or abdominal pain/cough/dyspnea/diarrhea. Otherwise see above. Constitutional Vitals: Vital Signs Temp Pulse Resp BP Pulse Ox 97.1 F 77 18 103/69 98 07/13/20 04:00 07/13/20 07:05 07/13/20 04:00 07/13/20 06:01 07/13/20 07:05 Period Temp Pulse Resp BP Sys/Pena Pulse Ox Last 24 Hr 97.1 F-98.5 F 68-84 16-20 91-120/65-85 94-100 Intake and Output 07/12/20 07/13/20 07/13/20 21:59 05:59 13:59 Intake Total 240 Output Total 250 200 Balance -250 40 Weight 69.173 kg Intake & Output: Intake & Output 07/12/20 07/13/20 07/13/20 21:59 05:59 13:59 Intake Total 240 Output Total 250 200 Balance -250 40 Weight 69.173 kg Intake: Oral 240 Output: Urine Catheter Amount 250 Void Amount 200 Other: Urine Appearance Clear Clear Uretheral (Newman) Clear Clear Urine Color Dark Yellow Dark Yellow Uretheral (Newman) Dark Yellow Dark Yellow Urine Odor Normal Uretheral (Newman) Normal Exam: General: Alert, Awake, No acute Distress Eyes/N/T: EOMI, Head/Neck: neck supple, CV: RRR, No murmurs, Pulm: Clear b/l, no wheezing/rhonchi/rales Abd: soft, nontender throughout, +BS x4, Ext: no clubbing/cyanosis/edema Neuro: Alert, moves all extremities, generalized weakness Skin: warm/dry OBJ DATA Labs CBC & Chem 7: 07/12/20 06:52 07/13/20 05:20 Labs: Abnormal Lab Results 07/13/20 07/12/20 07/12/20 05:20 06:52 06:52 RBC 3.66 L Hct 34.8 L MCH 34.7 H MCHC 36.5 H GGT 310 H 333 H AST 114 H 185 H ALT 130 H 128 H Alkaline Phosphatase 192 H 205 H Lactate Dehydrogenase 272 H Meds: Medications Acetaminophen (Tylenol) 650 mg PO Q6H [facility]; Protocol Stop: 07/13/20 10:59 Last Admin: 07/13/20 05:06 Dose: 650 mg Documented by: Albuterol/Ipratropium (Duoneb) 3 ml NEB Q4HP PRN PRN Reason: Shortness Of Breath Last Admin: 07/06/20 17:44 Dose: 3 ml Documented by: Baclofen (Lioresal) 20 mg PO QID [facility] Last Admin: 07/12/20 20:09 Dose: 20 mg Documented by: Bisacodyl (Dulcolax) 10 mg UT Q2-3DAYS PRN PRN Reason: Constipation Carisoprodol (Soma) 350 mg PO TIDP PRN PRN Reason: Muscle Spasm Last Admin: 07/12/20 09:03 Dose: 350 mg Documented by: Diazepam (Valium) 15 mg PO TID [facility] Last Admin: 07/12/20 20:09 Dose: 15 mg Documented by: Diphenhydramine HCl (Benadryl) 25 mg PO HSP PRN PRN Reason: Insomnia Last Admin: 07/12/20 20:14 Dose: 25 mg Documented by: Docusate Sodium (Colace) 100 mg PO BID [facility] Last Admin: 07/12/20 20:12 Dose: Not Given Documented by: Gabapentin (Neurontin) 900 mg PO TID [facility] Last Admin: 07/12/20 20:09 Dose: 900 mg Documented by: Guaifenesin/Codeine Phosphate (Robitussin Ac) 5 ml PO Q4HP PRN PRN Reason: Cough Last Admin: 07/08/20 15:27 Dose: 5 ml Documented by: Heparin Sodium (Porcine) (Heparin 10 Units/Ml Flush) 2 ml IV Q12 [facility] Last Admin: 07/12/20 20:12 Dose: 2 ml Documented by: Acetaminophen (Ofirmev) 650 mg in 65 mls @ 130 mls/hr IV Q6HP PRN; Protocol PRN Reason: Per Pain Protocol/Fever > 101 Magnesium Sulfate (Magnesium Sulfate) 2 gm in 50 mls @ 50 mls/hr IV UD PRN PRN Reason: MG = or < 1.7 Potassium Chloride 40 meq/ (Dextrose) 520 mls @ 130 mls/hr IV UD PRN PRN Reason: K+ = or < 3.5 Iron Carb/Multivit/Flushing/Folic Acid (Multivitamin W/Minerals) 1 tab PO DAILY [facility] Last Admin: 07/12/20 08:28 Dose: 1 tab Documented by: Levalbuterol HCl (Xopenex) 0.63 mg INH QDAY [facility] Last Admin: 07/12/20 07:58 Dose: 0.63 mg Documented by: Lidocaine (Lidoderm) 1 patch TOPICAL DAILY@1000 [facility] Last Admin: 07/12/20 09:03 Dose: 1 patch Documented by: Lorazepam (Ativan) 2 mg IV Q4-6HP PRN PRN Reason: Spasms Last Admin: 07/11/20 20:50 Dose: 2 mg Documented by: Lorazepam (Ativan) 2 mg PO Q4-6HP PRN PRN Reason: Spasms Last Admin: 07/12/20 19:40 Dose: 2 mg Documented by: Melatonin (Melatonin 3mg Tablet) 3 mg PO HS [facility] Last Admin: 07/12/20 20:13 Dose: 3 mg Documented by: Methocarbamol (Robaxin) 750 mg PO Q6 [facility] Last Admin: 07/13/20 05:06 Dose: 750 mg Documented by: Montelukast Sodium (Singular) 10 mg PO DAILY [facility] Last Admin: 07/12/20 08:29 Dose: 10 mg Documented by: Ondansetron HCl (Zofran Odt) 4 mg SL Q4-6HP PRN; Protocol PRN Reason: Nausea And Vomiting Last Admin: 07/12/20 08:29 Dose: 4 mg Documented by: Ondansetron HCl (Zofran) 4 mg IV Q6HP PRN PRN Reason: Nausea And Vomiting Oxycodone HCl (Roxicodone) 10 mg PO Q4-6HP PRN PRN Reason: Pain Last Admin: 07/12/20 20:14 Dose: 10 mg Documented by: Polyethylene Glycol (Miralax) 17 gm PO DAILYP PRN PRN Reason: Constipation Potassium Chloride (Klor-Con) 40 meq PO DAILYP PRN PRN Reason: K+ < 3.5 Last Admin: 07/05/20 18:38 Dose: 40 meq Documented by: Potassium/Phosphorus/Sodium (Neutra Phos) 2 packet PO DAILY PRN PRN Reason: PHOS <2.5 Fluticasone/Salmeterol (Advair 250-50 Diskus) 1 puff INH BID [facility] Last Admin: 07/12/20 20:25 Dose: 1 puff Documented by: Senna/Docusate Sodium (Senna Plus Tablet) 1 tab PO HS [facility] Last Admin: 07/12/20 20:13 Dose: Not Given Documented by: Sodium Chloride (Saline Flush) 10 ml IV Q8 [facility] Last Admin: 07/13/20 05:34 Dose: Not Given Documented by: Sodium Chloride (Saline Flush) 10 ml IV UD PRN PRN Reason: FLUSH Last Admin: 07/05/20 05:46 Dose: 10 ml Documented by: Sodium Chloride (Saline Flush) 10 ml IV Q12 [facility] Last Admin: 07/12/20 20:13 Dose: 10 ml Documented by: Tizanidine HCl (Zanaflex) 4 mg PO TID [facility] Last Admin: 07/12/20 20:08 Dose: 4 mg Documented by: Venlafaxine HCl (Effexor Xr) 225 mg PO DAILY [facility] Last Admin: 07/12/20 09:03 Dose: 225 mg Documented by: A/P Narrative A/P Narrative: A: -h/o T7-12 spinal cord injury (Jun 2017) w/acute exacerbation of recurrent/intractable neuromuscular spasms: -last spasm yesterday 7:40pm aborted by oral ativan -historically lower body spasms but extending to upper body recently -Spasms lasting 15-30 minutes -discussed w/[facility] neurologist Dr. Waushara Lavy > gradual up titration of tizanidine/benzodiazepine. Also recommended outpatient evaluation at pain clinic for baclofen pump placement. -rediscussed w/[place] [facility] (07/10) Dr. Joon Lopez who recommended brain/cervical/thoracic mri -Brain MRI with multiple nonspecific lesions felt to be chronic ischemic, 2018 MRI with similar findings -Cervical/Thoracic MRI unremarkable -Discussed case (07/11) with pts' group billing coordinator in [place] Dr. Bueno -Discussed w/[place] [facility] (07/11) who referred me to Dr. Soliz (PM[facility]R @[facility]) for further recs *Chronic LBP: increased prn frequency of oxycodone, lidoderm *h/o paraparesis following traumatic spinal injury Jun 2017: -requires assistance with ADL's -essentially wheelchair bound but has shown some improvement w/PT prior to admission by ambulating short distances w/wheeled walker *Generalized weakness/deconditioning/debility: -doing better with PT, walked in room yesterday *Transaminitis: noted 2019 labs, elevated on admission but improved then mildly worsened, now stable -abd u/s with mild intrahepatic dilation -MRI showing *LLL Pneumonia: resolved, on room. completed 7-day antibiotics *Sepsis: 06/27 pneumonia. resolved *Acute exacerbation of asthma: resolved, continue as needed bronchodilators *acute otitis media: resolved *Anxiety disorder: on venlafaxine Plan: -have been discussing with [facility] and [employer] (Dr. Soliz) as well as the pt's group billing coordinator Dr. Bueno -cont Valium to 15mg tid, Zanaflex to 4mg tid, cont home baclofen/gary/robaxin, cont prn soma. -cont lidoderm, tylenol, and increased prn frequency of home oxycodone for LBP -goal is to improve enough not to require iv ativan to abort severe spasms, then to [facility] vs [facility] vs [facility] -discussed with Dr. Cruz, trial injection for baclofen pump preparation today -outpatient pain clinic referral for baclofen pump -PT/OT, increase PT frequency -f/u LFT's outpt, f/u with GI -ppx: lovenox (held today for procedure)/scd Time Spent With Patient Time: Total time spent is greater than 50% in coordination of care (as documented) at patient's floor/unit and/or counseling patient:
[2020-07-13] MEDS: MULTIVIT,THER IRON,CA,FA & MIN 1 TABLET PO SCH (09:15)
[2020-07-13] MEDS: DIAZEPAM 10 MG TABLET PO SCH ×3 (09:15→21:07)
[2020-07-13] MEDS: VENLAFAXINE 75 MG CAP.XL.24H PO SCH (09:15)
[2020-07-13] MEDS: GABAPENTIN 300 MG CAPSULE PO SCH ×3 (09:15→21:01)
[2020-07-13] MEDS: tiZANidine 4 MG TABLET PO SCH ×3 (09:16→21:13)
[2020-07-13] MEDS: BACLOFEN 10 MG TABLET PO SCH ×4 (09:16→21:13)
[2020-07-13] MEDS: MONTELUKAST 10 MG TABLET PO SCH (09:16)
[2020-07-13] MEDS: DOCUSATE SODIUM 100 MG CAPSULE PO SCH ×2 (09:18→21:05)
[2020-07-13] MEDS ORDERED: 0.9 % SODIUM CHLORIDE 250 ML IV SCH (09:45)
[2020-07-13] MEDS ORDERED: GADOXETATE DISODIUM 2.5 MMOL/10 ML VIAL IV ONE (09:49)
[2020-07-13] MEDS ORDERED: LEVALBUTEROL 0.63 MG/3 ML AMPUL.NEB INH PRN (10:06)
[2020-07-13] MEDS: LEVALBUTEROL 0.63 MG/3 ML AMPUL.NEB INH SCH (10:07)
[2020-07-13] MEDS: LIDOCAINE PATCH TOPICAL SCH (11:27)
[2020-07-13] MEDS: FLUTICASONE/SALMETEROL 250/50 INHALER #14 INH SCH ×2 (12:09→21:01)
[2020-07-13] MEDS: LORazepam 2 MG/ML ORAL.SOL PO PRN (13:30)
--- NOTE | 2020-07-13 15:54 | Operative Note ---
DATE OF OPERATION: 07/13/2020 PREOPERATIVE DIAGNOSIS: Paraplegia with intractable spasticity. POSTOPERATIVE DIAGNOSIS: Paraplegia with intractable spasticity. PROCEDURE: Intrathecal baclofen injection for trial. SURGEON: Michael Cruz M.D. SUMMARY OF PROCEDURE: After informed consent, the patient was positioned in the left lateral position. The lumbar region was prepped and draped in the usual sterile manner. A 25-gauge 3-1/2 inch Quincke needle was directed into the intrathecal space at the L3-4 level through a left intralaminar approach. Clear CSF was seen to emanate from the tip. This was aspirated. A total of 50 mcg of baclofen was then injected and the needle was removed. The patient tolerated the procedure well. We will continue to monitor her closely over the next 4 hours. CGF:magan Job ID: [id number] Doc ID: [id number] Michael Cruz MD
[2020-07-13] MEDS: oxyCODONE HCL 5 MG TABLET PO PRN (18:45)
[2020-07-13] MEDS: SENNOSIDES/DOCUSATE SODIUM 1 TAB TABLET PO SCH (21:05)
[2020-07-13] MEDS: MELATONIN 3 MG TABLET PO SCH (21:14)
[2020-07-14] MEDS: oxyCODONE HCL 5 MG TABLET PO PRN (06:18)
[2020-07-14] MEDS: CARISOPRODOL 350 MG TABLET PO PRN (06:19)
[2020-07-14] MEDS: METHOCARBAMOL 750 MG TABLET PO SCH (06:19)
[2020-07-14] MEDS: LORazepam 2 MG/ML ORAL.SOL PO PRN (06:26)
[2020-07-14] MEDS: 0.9 % SODIUM CHLORIDE 10 ML SYRINGE IV SCH ×2 (06:43→08:12)
[2020-07-14] MEDS ORDERED: FLUCONAZOLE 150 MG TABLET PO ONE (07:41)
[2020-07-14] MEDS: MONTELUKAST 10 MG TABLET PO SCH (07:57)
[2020-07-14] MEDS: BACLOFEN 10 MG TABLET PO SCH (07:57)
[2020-07-14] MEDS: GABAPENTIN 300 MG CAPSULE PO SCH (07:57)
[2020-07-14] MEDS: DIAZEPAM 10 MG TABLET PO SCH (07:58)
[2020-07-14] MEDS: MULTIVIT,THER IRON,CA,FA & MIN 1 TABLET PO SCH (07:58)
[2020-07-14] MEDS: VENLAFAXINE 75 MG CAP.XL.24H PO SCH (07:58)
[2020-07-14] MEDS: tiZANidine 4 MG TABLET PO SCH (07:58)
[2020-07-14] MEDS: DOCUSATE SODIUM 100 MG CAPSULE PO SCH (07:58)
[2020-07-14] MEDS: FLUTICASONE/SALMETEROL 250/50 INHALER #14 INH SCH (08:11)
[2020-07-14] MEDS: LIDOCAINE PATCH TOPICAL SCH (08:19)
--- NOTE | 2020-07-14 14:36 | Magnetic Resonance Report ---
INDICATION: intrahepatic dilation. With EOVIST TECHNIQUE: Multi planar MR multi sequential MR images of the abdomen with contrast. Eovist biliary contrast was utilized. Imaging is mildly degraded by motion artifact. COMPARISON: MRCP 12 July 2020. FINDINGS: Lung bases are unremarkable. The liver pancreas spleen kidneys adrenal glands stomach small and large bowel, normal MRI appearance. The gallbladder surgically absent. The bile ducts are adequately opacified by contrast seen to greatest advantage on the 15 minute postcontrast images. There is no filling defect. There is mild tortuosity of the distal bile ducts. The distal common bile duct measures approximately 4-5 mm not unexpected in this patient who is status post cholecystectomy. The marrow signal is homogenous. IMPRESSION: Normal repeat MR examination of the biliary system utilizing specific biliary contrast agent. There are no biliary filling defects. Normal intrahepatic and extrahepatic biliary system. Interpreted and Authenticated by: Luis Campa M.D. 07/14/20
== END 2020-07-14 10:15 | DRG 194 ==
LOC: ED 14:53 → ICU 19:44
PROVIDERS: ADMIT Internal Medicine; ATTEND Internal Medicine